=== PATIENT | female | born 1980 | race Caucasian/White ===

== ENCOUNTER 2020-05-31 06:50 | Outpatient (NON) | payer OTHER, SELFPAY ==
[2020-05-31 23:54] LABS: SARS-CoV-2 RNA PCR Negative
== END 2020-05-31 06:51 ==
PROVIDERS: Visit Provider Physician Assistant
DX: Z20.828 Contact with and (suspected) exposure to other viral communicable diseases (principal); J02.9 Acute pharyngitis, unspecified; R05 Cough; R50.9 Fever, unspecified
CPT/HCPCS: 87635; C9803; U0003

== ENCOUNTER → 2020-10-03 10:31 | Outpatient (CLI) | payer SELFPAY ==
--- NOTE | ~2020-10-03 | CT_ITS ---
EXAMINATION: CT abdomen pelvis w con DATE: 10/03/2020 10:55 INDICATION: Right lower quadrant abdominal pain. Diarrhea. TECHNIQUE: Computed tomography (CT) of the abdomen and pelvis was performed with 100 mL Omnipaque 350 intravenous contrast. Automated exposure control and iterative reconstruction technique were employe d. The dose-length product was 858.91 mGy-cm. COMPARISON: CT abdomen and pelvis 11/01/2017 FINDINGS: The visualized portions of the lung bases demonstrate mild atelectasis. No pleural effusion . The heart size is normal. No pericardial effusion. The liver and spleen are normal. There are ac es of cholecystectomy. The pancreas, adrenal glands, and left kidney are normal. There is an [address] in right kidney. There is an intrauterine device in expected position. There are no dilated loops of bowel. The appendix is not visualized. There are no pathologically enlarged lymph nodes. There is no free intraperitoneal fluid. There is moderate thoracic spondylosis and mild lumbar spondylosis. IMPRESSION: 1. No etiology for the patient's symptoms. Reviewed, dictated and finalized at location B. MOBILE LOCATOR
== END ==
PROVIDERS: PCP Family Medicine; Visit Provider Family Medicine
DX: R10.9 Unspecified abdominal pain (principal)
CPT/HCPCS: 74177; Q9967

== ENCOUNTER 2021-03-01 17:42 | Emergency (ER) | payer SELFPAY ==
--- NOTE | ~2021-03-01 | XR_ITS ---
EXAMINATION: XR foot RT min 3V DATE: 03/01/2021 17:53 INDICATION: Right foot pain and swelling. TECHNIQUE: 4 views of right foot were obtained. COMPARISON: Right foot radiographs 12/11/16 FINDINGS: Bone alignment is normal. No fracture. Joint spaces are well maintained. IMPRESSION: 1. No fracture. Reviewed, dictated and finalized at location A. IMPRESSION: 1. No fracture.
--- NOTE | ~2021-03-01 | XR_ITS ---
EXAMINATION: XR ankle RT min 3V DATE: 03/01/2021 17:53 INDICATION: Right ankle pain and swelling. TECHNIQUE: 4 views of right ankle were obtained. COMPARISON: Right ankle radiographs 12/11/2016 FINDINGS: Bone alignment is normal. No fracture. Joint spaces are well maintained. There is ankle sof t tissue swelling. IMPRESSION: 1. No fracture. Reviewed, dictated and finalized at location A. IMPRESSION: 1. No fracture.
[2021-03-01 17:56] VITALS: BP 141/82; PULSE 80; RESP 16; TEMP 36.4; O2SAT 100
--- NOTE | 2021-03-02 07:57 | ED.LOWEXIN ---
HPI - Extremity Injury (Lower) General Chief Complaint: Extremity Injury, Lower Stated Complaint: right foot injury Time Seen by Provider: 03/01/21 17:50 Source: patient and RN notes reviewed Mode of arrival: ambulatory Limitations: no limitations History of Present Illness HPI Narrative: Patient presents today complaining of right foot and ankle injury 2 days ago. States she twisted the foot and ankle while walking down some stairs into her basement. She has been ambulatory with increased pain since the injury. Reports significant swelling to the area. She does report some numbness and tingling to the fifth toe. She has been applying ice and taking ibuprofen without much relief. Reports the pain is throbbing. Pain increases with weightbearing and movement. Currently rates her pain 6/10. MD complaint: ankle injury and foot injury Related Data Allergies Allergy/AdvReac Type Severity Reaction Status Date / Time propoxyphene Allergy Intermediate SOB & Verified 03/01/21 17:44 TIGHTNESS IN THROAT doxycycline Allergy Mild Unknown Verified 03/01/21 17:44 strawberry Allergy Unknown Unknown Verified 03/01/21 17:44 tetracycline Allergy Unknown Unknown Verified 03/01/21 17:44 Review of Systems Review of Systems: Narrative: CONSTITUTIONAL: Denies body aches, fever, chills, or sweats. EYES: Denies visual changes, redness, or discharge. ENT: Denies rhinorrhea, congestion, sore throat, or otalgia. CARDIOVASCULAR: Denies chest pain, palpitations, or edema. RESPIRATORY: Denies cough or dyspnea. GASTROINTESTINAL: Denies abdominal pain, nausea, vomiting, or diarrhea. GENITOURINARY: Denies dysuria or hematuria. SKIN: Denies rash, itching, or wounds. MUSCULOSKELETAL: Denies back pain, or myalgia.+ Right foot and ankle injury NEUROLOGIC: Denies headache, or weakness.+ Numbness and tingling to the right fifth toe PSYCH: Denies depression or anxiety. [facility] Past Medical History Medical History (Updated 03/02/21 @ 07:59 by Latia Zepeda, SANDING SUPERVISOR, ) History of panic attacks Surgical History Surgical History History of appendectomy Hx of cholecystectomy Family History Family History Father Family history of thyroid disease Hypertension Family history of elevated blood lipids Family history of heart disease in male family member before age 55 Family history of alcoholism Family history of cardiovascular disease Family history of arthritis Sibling Family history of thyroid disease Family history of ulcerative colitis Depression Family history of anemia Family history of colitis Mother Family history of gastrointestinal disorder Carcinoma of colon Family history of malignant neoplasm of breast in first degree relative Family history of mental disorder Family history of anemia Family history of arthritis Grandparent Family history of osteoporosis Family history of Alzheimer's disease Family history of hearing loss Other Cerebrovascular accident Family history of allergic disorder Family history of glaucoma Family history of malignant neoplasm of breast Social History Social History Smoking status: Current some day smoker Alcohol intake: current Comments At time of signature, I have reviewed and agree with nursing past medical, surgical, social and family history unless otherwise noted. Please see nursing chart for further information. There is no relevant family history pertinent to the presenting complaint Exam Narrative: Exam Narrative: GENERAL: Well-appearing, well-nourished, and in no acute distress. HEAD: Normocephalic, atraumatic. EYES: EOMI. No redness or drainage. Conjunctivae normal. ENT: Mucous membranes pink and moist. NECK: Normal AROM. CHEST: No respiratory distress. EXTREMITIES: Right foot and ankle: Mo
== END 2021-03-01 18:11 | disposition home or self-care (01) ==
PROVIDERS: Emergency Provider Nurse Practitioner; PCP Family Medicine
DX: S93.401A Sprain of unspecified ligament of right ankle, initial encounter (principal); X50.9XXA Other and unspecified overexertion or strenuous movements or postures, initial encounter; F41.0 Panic disorder [episodic paroxysmal anxiety]
CPT/HCPCS: 73610; 73630; 99213; G0463

== ENCOUNTER 2021-10-14 13:50 | Outpatient (CLI) | payer SELFPAY ==
--- NOTE | ~2021-10-14 | MMUS_ITS ---
EXAMINATION: MM diagnostic merlene BI w connor, US breast LT limited HISTORY: Pain of the outer left breast TECHNIQUE: Craniocaudal, mediolateral, and mediolateral oblique 3-D tomosynthesis images of the breas ts were performed and synthetic 2-D images were generated. CAD analysis was submitted and interpreted . High resolution limited left breast ultrasound was performed. COMPARISON: 05/09/2015, 03/06/2014, 02/22/2013 BREAST PARENCHYMAL COMPOSITION: There are scattered areas of fibroglandular density. FINDINGS: MAMMOGRAPHIC FINDINGS: There is no evidence of suspicious mass, calcification, or architectural distortion in either breast to suggest malignancy. There has been no suspicious interval change. No mammographic correlate is identified for the patient's reported left breast pain. ULTRASOUND: There is no evidence of focal abnormal solid or cystic mass in the vicinity of the patient's reported left breast pain. IMPRESSION: 1. No specific mammographic or sonographic correlate is identified for the patient's reported left br east pain. Further evaluation at this time should be based on clinical assessment. Continued follow-u p physical examination is recommended. 2. Recommend routine screening mammography in one year. BI-RADS Category 1: Negative Reviewed, dictated and finalized at location A. AND SHOVEL MAN IMPRESSION: 1. No specific mammographic or sonographic correlate is identified for the dale ent's reported left breast pain. Further evaluation at this time should be base d on clinical assessment. Continued follow-up physical examination is recommend ed. 2. Recommend routine screening mammography in one year. BI-RADS Category 1: Negative
== END 2021-10-14 13:51 | disposition home or self-care (01) ==
PROVIDERS: PCP Family Medicine; Visit Provider Advanced Practice Midwife
DX: N64.4 Mastodynia (principal)
CPT/HCPCS: 76642; 77062; 77066; G0279

== ENCOUNTER 2022-01-25 22:05 | Emergency (ER) | payer OTHER, SELFPAY ==
--- NOTE | ~2022-01-25 | CT_ITS ---
EXAMINATION: CT abdomen pelvis w con INDICATION: Epigastric pain and vomiting TECHNIQUE: Computed tomographic images of the abdomen and pelvis were obtained after the administrati on of 100 cc of Omnipaque 350 intravenous contrast. The dose-length product (DLP) was 715.18 mGy-cm. Automated exposure control and iterative reconstruction technique were employed. COMPARISON: 10/03/2020 FINDINGS: Minimal dependent atelectasis is present in the lung bases. The heart size is normal. The g allbladder is surgically absent. There is mild enlargement of the common bile duct and central intrah epatic ducts which is likely due to post cholecystectomy state. The liver, spleen, pancreas, and adre nal glands are normal. There is a 1.6 cm cyst of the right kidney. Mild bilateral hydroureter is note d, likely due to bladder distention. No pathologically enlarged abdominal or pelvic lymph nodes are i dentified. There is no free intraperitoneal gas or evidence of bowel obstruction. An IUD is in expect ed position. There is a small fat-containing umbilical hernia. Mild lower thoracic spondylosis is not ed. IMPRESSION: 1. No CT correlate for the patient's symptoms. Reviewed, dictated and finalized at location A.
[2022-01-25 22:08] VITALS: BP 142/85; PULSE 80; RESP 16; TEMP 36.3; O2SAT 100
[2022-01-25 22:56] LABS: Basophils Percent Auto 0.2 % (0.2-1.2); Eosinophils Absolute Auto 0.1 K/mm3 (0-0.3); Eosinophils Percent Auto 1.7 % (0-4.4); Hematocrit 36.7 % (37.0-47.0); Hemoglobin 12.8 g/dL (12.0-15.0); Immature Granulocyte Absolute 0.03 K/mm3 (0.00-0.031); Immature Granulocyte Percent A 0.4 % (0-0.5); Lymphocytes Absolute Auto 1.94 K/mm3 (0.9-3.2); Lymphocytes Percent Auto 23.1 % (18.3-44.2); Mean Corpuscular HGB Conc 34.9 g/dl (32-36); Mean Corpuscular Hemoglobin 32.3 pg (26-34); Mean Corpuscular Volume 92.7 fl (80-100); Monocytes Absolute Auto 0.3 K/mm3 (0.1-0.6); Monocytes Percent Auto 3.9 % (2.6-8.5); Neutrophils Percent Auto 70.7 % (45.5-73.1); Platelet Count Result 219 k/mm3 (150-375); Red Blood Count 3.96 M/mm3 (4.2-5.4); Red Cell Distribution Width 12.8 % (11.5-14.5); White Blood Count 8.4 K/mm3 (4.5-10.0)
[2022-01-25 23:00] LABS: Add Urine Microscopic? YES; Appearance Urine Cloudy (Clear); Bilirubin Urine Negative (Negative); Color Urine Yellow (Yellow); Glucose Urine UA Negative (Negative); Ketones Urine Trace mg/dL (Negative); Leukocyte Esterase Ur 3+ LEU/UL (Negative); Mucus Urine Rare /lpf; Nitrate Urine Negative (Negative); Protein Urine Negative (Negative); Specific Grav Ur 1.028 (1.001-1.035); Squamous Epithelial Cell Urine Few /hpf (Few); Urobilinogen Urine Negative mg/dL (<2.0)
--- NOTE | 2022-01-25 23:08 | ED.NAVMDI ---
HPI - Nausea/Vomiting/Diarrhea General Chief complaint: Nausea/Vomiting/Diarrhea Stated complaint: nausea, vomiting, abd pain Time Seen by Provider: 01/25/22 22:16 Source: patient Mode of arrival: ambulatory Limitations: no limitations History of Present Illness HPI Narrative: This is a 42 year old female that presents to the ER for nausea and vomiting. Reports she recently had a tooth pulled by an oral surgeon in [place]. Reports she started to have worsening pain today and was started on Clindamycin and given Tylenol with Codeine. She has had epigastric pain since. Also reports nausea and vomiting. Denies fevers, difficulty swallowing or trouble breathing. Related Data Allergies Allergy/AdvReac Type Severity Reaction Status Date / Time propoxyphene Allergy Intermediate SOB & Verified 10/28/21 11:38 TIGHTNESS IN THROAT doxycycline Allergy Mild Unknown Verified 10/28/21 11:38 strawberry Allergy Unknown Unknown Verified 10/28/21 11:38 tetracycline Allergy Unknown Unknown Verified 10/28/21 11:38 Review of Systems Review of Systems: CONSTITUTIONAL: Denies fever ENT: Reports dentalgia GASTROINTESTINAL: Reports abdominal pain, nausea, vomiting All systems reviewed & are unremarkable except as noted in HPI and below PMFSH Past Medical History Medical History History of panic attacks Surgical History Surgical History History of appendectomy Hx of cholecystectomy Family History Family History Father Family history of thyroid disease Hypertension Family history of elevated blood lipids Family history of heart disease in male family member before age 55 Family history of alcoholism Family history of cardiovascular disease Family history of arthritis Sibling Family history of thyroid disease Family history of ulcerative colitis Depression Family history of anemia Family history of colitis Mother Family history of gastrointestinal disorder Carcinoma of colon Family history of malignant neoplasm of breast in first degree relative Family history of mental disorder Family history of anemia Family history of arthritis Grandparent Family history of osteoporosis Family history of Alzheimer's disease Family history of hearing loss Other Cerebrovascular accident Family history of allergic disorder Family history of glaucoma Family history of malignant neoplasm of breast Social History Social History (Updated 10/28/21 @ 11:40 by Page Galeana CMA) Smoking status: Current some day smoker Alcohol intake: current Substance use type: does not use Exam Narrative: GENERAL: Well-appearing, well-nourished, and in no acute distress. HEAD: Normocephalic, atraumatic. EYES: EOMI. ENT: Mucous membranes moist. Oropharynx without tonsillar hypertrophy exudate or other lesions. No trismus. Tooth #20 is absent with mild surrounding redness. No fluctuance to suggest abscess NECK: Supple. No adenopathy or masses. CHEST: Clear to auscultation. No respiratory distress. No wheezes rales or rhonchi HEART: Regular rate and rhythm. No murmur heard. Normal peripheral pulses. ABDOMEN: Soft, nontender, nondistended, normal active bowel sounds. EXTREMITIES: Normal range of motion. No edema. SKIN: Warm, dry, no rash. NEURO: No focal deficits. Alert and oriented x3. PSYCH: Normal mood and affect Course Vital Signs Vital signs: Vital Signs Temperature 97.4 F L 01/25/22 22:08 Pulse Rate 80 01/25/22 22:08 Respiratory Rate 16 01/25/22 22:08 Blood Pressure 142/85 H 01/25/22 22:08 Pulse Oximetry 100 01/25/22 22:08 Temperature 97.4 F L 01/25/22 22:08 Pulse Rate 62 01/26/22 02:07 Respiratory Rate 18 01/26/22 02:07 Blood Pressure 118/87 01/26/22 02:07 Pulse Oximetry 100 01/26/22 02:07 MDM - Nausea/Vomiting/Catrina
--- NOTE | 2022-01-25 23:09 | ECG_ITS ---
Measurements Intervals [place] Rate: 69 P: 47 [place]: 162 QRS: 43 QRSD: 85 T: 11 QT: 400 QTc: 431 Interpretive Statements SINUS RHYTHM BASELINE ARTIFACT NONSPECIFIC ST ABNORMALITY BORDERLINE ECG NO PREVIOUS ECG AVAILABLE FOR COMPARISON Electronically Signed On 01-26-2022 16:16:29 CDT by Lopez Swan M.D.
[2022-01-25 23:10] LABS: Blood Urine Negative (Negative)
[2022-01-25 23:10] LABS: Alanine Aminotransferase 17 U/L (4-35); Albumin Level 4.1 g/dL (3.5-5.1); Alkaline Phosphatase 52 U/L (38-126); Anion Gap 7 mmol/L (8-16); Aspartate Amino Transferase 27 U/L (14-36); Bilirubin,Total 0.8 mg/dL (0.2-1.3); Blood Urea Nitrogen 6 mg/dL (7-17); Calcium 8.2 mg/dL (8.4-10.2); Carbon Dioxide 25 mmol/L (22-30); Chloride 107 mmol/L (98-107); Estimated CRCL calculation 90 ml/min; Estimated Glomerular Filt Rate > 60; Glucose 99 mg/dL (65-110); Lipase 89 U/L (23-300); Potassium 3.8 mmol/L (3.4-5.0); Sodium 139 mmol/L (137-145)
[2022-01-25] MEDS: ONDANSETRON INJ 4 MG/2 ML VIAL IV PUSH (23:14)
[2022-01-25] MEDS: KETOROLAC 30 MG/ML VIAL (*BKC) IV PUSH (23:15)
[2022-01-25] MEDS: PANTOPRAZOLE SODIUM IV 40 MG VIAL IV PUSH (23:16)
[2022-01-25] MEDS: SODIUM CHLORIDE 0.9% IV 1,000 ML 999 ML IV CONT (23:19)
[2022-01-25] MEDS: AMPICILLIN SULB 3 GM/NS 100 ML 3 GM/100 ML VIAL IVPB (23:46)
[2022-01-25 23:59] VITALS: BP 129/88; PULSE 62; RESP 18; O2SAT 100
[2022-01-26 02:07] VITALS: BP 118/87; PULSE 62; RESP 18; O2SAT 100
[2022-01-26 02:41] VITALS: BP 118/72; PULSE 62; RESP 18; O2SAT 100
== END 2022-01-26 02:44 | disposition home or self-care (01) ==
PROVIDERS: Physician Assistant; Emergency Provider Emergency Medicine; PCP Family Medicine
DX: N30.00 Acute cystitis without hematuria (principal); K08.89 Other specified disorders of teeth and supporting structures; R11.2 Nausea with vomiting, unspecified; F17.200 Nicotine dependence, unspecified, uncomplicated; R82.998 Other abnormal findings in urine; Z98.818 Other dental procedure status; T36.8X5A Adverse effect of other systemic antibiotics, initial encounter; R94.31 Abnormal electrocardiogram [ECG] [EKG]
CPT/HCPCS: 36415; 74177; 80053; 81001; 81025; 83690; 85025; 87086; 87088; 93005; 96365; 96367; 96375; 99284; C9113; J0131; J0295; J1885; J2405; J7030; Q9967

== ENCOUNTER → 2022-06-20 12:27 | Outpatient (CLI) | payer OTHER, SELFPAY ==
--- NOTE | ~2022-06-20 | XR_ITS ---
EXAMINATION:XR cervical spine 4-5V DATE: 06/20/2022 12:55 INDICATION: Left arm pain and left hand numbness TECHNIQUE: AP, lateral, lateral swimmers and odontoid views of the cervical spine are provided. COMPARISON: None FINDINGS: There are 2 mm of retrolisthesis of C5 on C6. The odontoid is intact. No fracture is identi fied. The vertebral body heights are normal. There is moderate loss of intervertebral disc space heig ht at C5-6. Small degenerative osteophytes project from the anterior endplates of multiple vertebral bodies. There is moderate facet and uncovertebral joint osteoarthritis in the mid and lower cervical spine. Prevertebral soft tissues are normal. IMPRESSION: 1. Moderate cervical spondylosis without acute findings. Reviewed, dictated and finalized at location B.
--- NOTE | ~2022-06-20 | XR_ITS ---
EXAMINATION: XR chest 2V 06/20/2022 12:55 INDICATION: Dyspnea PROCEDURE: 2 view chest COMPARISON: 06/05/2013 FINDINGS: The lungs are clear. The cardiomediastinal silhouette is within normal limits. There are no pleural effusions. There is no pneumothorax suspected. IMPRESSION: 1: NO ACUTE CARDIOPULMONARY DISEASE. Reviewed, dictated and finalized at location A.
== END ==
PROVIDERS: PCP Family Medicine; Visit Provider Family Medicine
DX: R06.09 Other forms of dyspnea (principal); R07.9 Chest pain, unspecified; F17.200 Nicotine dependence, unspecified, uncomplicated; M50.122 Cervical disc disorder at C5-C6 level with radiculopathy; M47.892 Other spondylosis, cervical region
CPT/HCPCS: 71046; 72050

== ENCOUNTER 2022-09-30 17:18 | Emergency (ER) | payer OTHER, SELFPAY ==
--- NOTE | ~2022-09-30 | CT_ITS ---
EXAMINATION: CT abdomen pelvis w con DATE: 09/30/2022 19:52 INDICATION: right lower groin pain, radiating to back. TECHNIQUE: Computed tomography (CT) of the abdomen and pelvis was performed with 100 mL Omnipaque-350 intravenous contrast. Automated exposure control and iterative reconstruction technique were employe d. The dose-length product was 656.00 mGy-cm. COMPARISON: 01/26/2022. FINDINGS: Lower thorax: Left dependent scar/atelectasis. Liver: Normal. Biliary/Gallbladder: Gallbladder is absent. Mild secondary dilation. Pancreas: No mass or duct dilation. Spleen: Normal. Adrenals:No mass. Kidneys: Simple right upper pole cyst. Bilateral subcentimeter hypodensities, too small to characteri ze but also likely represent cysts. No suspicious mass, obstructing calcification, or hydronephrosis. GI tract: Distal esophageal and gastric wall edema. No small or large bowel dilation. Surgically abse nt appendix. Mesentery/Peritoneum: No ascites, mass, or free air. Retroperitoneum: No mass. Mild atherosclerotic abdominal aortic and/or arterial calcifications. Pelvis: Mild wall thickening of the partially decompressed bladder. Normal uterus. IUD, in good posit ion. Trace free pelvic fluid. 2.3 cm simple right ovarian cyst. Soft Tissues: Small uncomplicated fat-containing umbilical hernia. Bones: No acute osseous finding. IMPRESSION: Esophagitis/gastritis. Possible cystitis, correlate with urinalysis. Otherwise no acute abdominal pel abby process detected. Surgically absent appendix. Reviewed, dictated and finalized at location K. ER MOUTH CUTTER IMPRESSION: Esophagitis/gastritis. Possible cystitis, correlate with urinalysis. Otherwise no acute abdominal pelvic process detected. Surgically absent appendix.
[2022-09-30 17:21] VITALS: BP 130/83; PULSE 92; RESP 20; TEMP 36.4; O2SAT 99
[2022-09-30 17:35] LABS: Basophils Percent Auto 0.3 % (0.2-1.2); Eosinophils Absolute Auto 0.1 K/mm3 (0-0.3); Eosinophils Percent Auto 1.2 % (0-4.4); Hematocrit 41.5 % (37.0-47.0); Hemoglobin 14.4 g/dL (12.0-15.0); Immature Granulocyte Absolute 0.03 K/mm3 (0.00-0.031); Immature Granulocyte Percent A 0.5 % (0-0.5); Lymphocytes Absolute Auto 1.72 K/mm3 (0.9-3.2); Lymphocytes Percent Auto 26.5 % (18.3-44.2); Mean Corpuscular HGB Conc 34.7 g/dl (32-36); Mean Corpuscular Hemoglobin 31.9 pg (26-34); Mean Platelet Volume 10.3 fl (7.4-10.4); Monocytes Absolute Auto 0.3 K/mm3 (0.1-0.6); Monocytes Percent Auto 4.9 % (2.6-8.5); Neutrophils Absolute Auto 4.3 K/mm3 (1.3-6.7); Neutrophils Percent Auto 66.6 % (45.5-73.1); Platelet Count Result 302 k/mm3 (150-375); Red Blood Count 4.51 M/mm3 (4.2-5.4); Red Cell Distribution Width 12.1 % (11.5-14.5); White Blood Count 6.5 K/mm3 (4.5-10.0)
[2022-09-30 17:47] LABS: Alanine Aminotransferase 18 U/L (6-35); Albumin Level 4.8 g/dL (3.5-5.1); Alkaline Phosphatase 60 U/L (38-126); Anion Gap 8 mmol/L (8-16); Aspartate Amino Transferase 28 U/L (14-36); Bilirubin,Total 0.9 mg/dL (0.2-1.3); Blood Urea Nitrogen 10 mg/dL (7-17); Calcium 8.9 mg/dL (8.4-10.2); Carbon Dioxide 27 mmol/L (22-30); Chloride 102 mmol/L (98-107); Estimated CRCL calculation 103 ml/min; Estimated Glomerular Filt Rate > 60; Glucose 92 mg/dL (65-110); Lipase 110 U/L (23-300); Sodium 137 mmol/L (137-145)
[2022-09-30 18:53] VITALS: BP 112/75; PULSE 79; RESP 18; O2SAT 100
[2022-09-30 19:00] LABS: Appearance Urine Slightly Cloudy (Clear); Bilirubin Urine 1+ (Negative); Blood Urine Trace-intact (Negative); Color Urine Yellow (Yellow); Glucose Urine UA Negative (Negative); Ketones Urine Negative (Negative); Leukocyte Esterase Ur Trace LEU/UL (Negative); Nitrate Urine Negative (Negative); Protein Urine Trace mg/dL (Negative); Specific Grav Ur 1.025 (1.001-1.035); Urobilinogen Urine 0.2 mg/dL (<2.0)
[2022-09-30 19:01] VITALS: BP 121/79; O2SAT 99
[2022-09-30 19:05] LABS: Amorphous Sediment Urine Few; Bacteria Urine Trace /hpf; Mucus Urine Heavy /lpf; Squamous Epithelial Cell Urine Many /hpf (Few); WBC Urine 0-3 /hpf
[2022-09-30 19:07] LABS: Add Urine Microscopic? YES
[2022-09-30] MEDS: MORPHINE SULFATE (*CRX) 4 MG/ML INJ IV PUSH (19:59)
[2022-09-30 20:00] VITALS: BP 117/81; PULSE 79; RESP 15; O2SAT 100
[2022-09-30] MEDS: SODIUM CHLORIDE 0.9% IV 1,000 ML 999 ML IV CONT (20:00)
[2022-09-30 20:02] VITALS: BP 117/81; O2SAT 100
--- NOTE | 2022-09-30 20:27 | ED.ABDPAIN ---
HPI - Abdominal Pain General Chief Complaint: Abdominal Pain Stated Complaint: L groin pain Time Seen by Provider: 09/30/22 18:58 Source: patient Mode of arrival: ambulatory Limitations: no limitations History of Present Illness HPI narrative: 42-year-old female presents today with complaints of continued right lower abdominal pain. Patient has a history of ovarian cyst and was scheduled for surgery in August but had difficulties. States that she needed cardiac clearance for anesthesia and has not yet obtain that. Patient states the right lower pain has been there for about a week to 10 days consistently getting worse. Patient has not taken any pain medicine except for ibuprofen of the last few days with little relief. Patient denies any back pain, urinary frequency, dysuria, blood in the urine, nausea, vomiting, diarrhea. Related Data Home Medications Medication Instructions Recorded Confirmed multivitamin 1 tablet PO DAILY 09/01/22 09/01/22 Allergies Allergy/AdvReac Type Severity Reaction Status Date / Time propoxyphene Allergy Intermediate SOB & Verified 09/30/22 18:54 TIGHTNESS IN THROAT doxycycline Allergy Mild Other Verified 09/30/22 18:54 strawberry Allergy Unknown Unknown Verified 09/30/22 18:54 tetracycline Allergy Unknown Unknown Verified 09/30/22 18:54 acetaminophen Allergy Shakiness Verified 09/30/22 18:54 [From Tylenol-Codeine #3] codeine Allergy Shakiness Verified 09/30/22 18:54 [From Tylenol-Codeine #3] Review of Systems Review of Systems: CONSTITUTIONAL: Denies fever, chills, or sweats. EYES: Denies visual changes, redness, or discharge. ENT: Denies rhinorrhea, congestion, sore throat, or otalgia. CARDIOVASCULAR: Denies chest pain, palpitations, or edema. RESPIRATORY: Denies cough or dyspnea. GASTROINTESTINAL: Right lower abdominal pain. Denies nausea, vomiting, or diarrhea. GENITOURINARY: Denies dysuria or hematuria. SKIN: Denies rash or itching. MUSCULOSKELETAL: Denies back pain, joint pain, or myalgia. NEUROLOGIC: Denies headache, numbness, dizziness, or weakness. PSYCHIATRIC: Denies anxiety or depression. [facility] Past Medical History Medical History History of panic attacks Surgical History Surgical History History of appendectomy Hx of cholecystectomy Family History Family History Father Family history of thyroid disease Hypertension Family history of elevated blood lipids Family history of heart disease in male family member before age 55 Family history of alcoholism Family history of cardiovascular disease Family history of arthritis Sibling Family history of thyroid disease Family history of ulcerative colitis Depression Family history of anemia Family history of colitis Mother Family history of gastrointestinal disorder Carcinoma of colon Family history of malignant neoplasm of breast in first degree relative Family history of mental disorder Family history of anemia Family history of arthritis Grandparent Family history of osteoporosis Family history of Alzheimer's disease Family history of hearing loss Other Cerebrovascular accident Family history of allergic disorder Family history of glaucoma Family history of malignant neoplasm of breast Social History Social History Smoking packs per day: 0.5 Smoking cigarettes per day: 10.0 Years smoked: 9 Smoking pack-years: 4.50 Smoking status: Current some day smoker Tobacco type: cigarettes Smoking end date: 10/26/03 Additional smoking assessment comments: CURRENT SOCIAL SMOKER Alcohol intake: current Alcohol use details: 2/MONTH Substance use: never Substance use type: does not use Additional living arrangements comments: SONS [facility]
[2022-09-30 21:31] VITALS: BP 130/80; PULSE 78; RESP 18; O2SAT 98
== END 2022-09-30 21:32 | disposition home or self-care (01) ==
PROVIDERS: Emergency Medicine; Emergency Provider Nurse Practitioner Family; PCP Family Medicine
DX: N83.201 Unspecified ovarian cyst, right side (principal); R10.9 Unspecified abdominal pain; F17.210 Nicotine dependence, cigarettes, uncomplicated
CPT/HCPCS: 36415; 74177; 80053; 81001; 81025; 83690; 85025; 96361; 96374; 99284; J2270; J7030; Q9967

== ENCOUNTER 2022-10-31 10:38 | Outpatient (CLI) | payer OTHER, SELFPAY ==
--- NOTE | ~2022-10-31 | XR_ITS ---
XR lumbar spine 2-3V DATE: 10/31/2022 11:04 INDICATION: Low back pain TECHNIQUE: AP, lateral, coned lateral lumbosacral views COMPARISON: 10/01/2015 MRI lumbar spine FINDINGS: There is mild to moderate degenerative spurring of the lower thoracic spine, moderately sev ere degenerative disc disease at T10-11 and T11-12. Normal alignment of the lumbar spine. No fracture or bone destruction or spondylolisthesis. The lumba r pedicles are intact. There is moderate moderate loss of height at L4-5 interspace. Remaining lumbar and lumbosacral inters paces are well preserved. The sacral iliac joints are intact. Surgical clips, right upper quadrant, consistent with cholecystectomy IUD overlies the central pelvis. IMPRESSION: Mild/moderate loss of interspace height at L4-5 Degenerative changes of the lower thoracic spine Status post cholecystectomy IUD Reviewed, dictated and finalized at location B. ICAL UNIT COORDINATOR
== END 2022-10-31 10:39 ==
LOC: MICIMG 10:42
PROVIDERS: PCP Family Medicine; Visit Provider Physician Assistant
DX: M54.50 Low back pain, unspecified (principal); Z90.49 Acquired absence of other specified parts of digestive tract
CPT/HCPCS: 72100

== ENCOUNTER 2023-01-16 08:49 | Emergency (ER) | payer OTHER, SELFPAY ==
[2023-01-16] VITALS (11 sets, daily range): BP systolic 108–124; BP diastolic 71–85; PULSE 61–90; RESP 12–18; TEMP 36.3; O2SAT 97–100
--- NOTE | ~2023-01-16 | XR_ITS ---
EXAMINATION: XR chest 2V DATE: 01/16/2023 09:36 INDICATION: Shortness of breath TECHNIQUE: PA and lateral views of the chest are obtained. COMPARISON: 06/20/2022 FINDINGS: The lungs are free of acute opacities. No pleural effusion or pneumothorax. The cardiomedia stinal silhouette is normal. There is mild thoracic spondylosis. Surgical clips in the right upper qu adrant are likely from prior cholecystectomy. IMPRESSION: 1. No acute cardiopulmonary abnormality. Reviewed, dictated and finalized at location B.
--- NOTE | ~2023-01-16 | CT_ITS ---
Clinical Indication: Dyspnea CT Scan of the Chest with Contrast: Technique: Contiguous sections were acquired throughout the chest after intravenous administration of 100 cc of Omnipaque 350. Dose reduction technique was used on this scan by utilizing automated expos ure control and iterative reconstruction technique. The dose-length product (DLP) was 345.50 mGy-cm. COMPARISON: 06/05/2013 Findings: There is no evidence of any significant mediastinal, hilar or axillary lymphadenopathy. There is no f illing defect in the pulmonary arterial tree to suggest pulmonary embolus. There is no evidence of ao rtic dissection or aneurysm. There is no evidence of pleural or pericardial effusion. The lungs are clear, aside from minimal left basilar atelectatic change. Images through the upper abdomen reveal no abnormalities. Impression: No evidence of pulmonary embolus, aortic dissection, or aortic aneurysm. No significant pulmonary abnormality. Reviewed, dictated and finalized at [facility]. Impression: No evidence of pulmonary embolus, aortic dissection, or aortic aneurysm. No significant pulmonary abnormality.
--- NOTE | 2023-01-16 09:12 | ECG_ITS ---
Measurements Intervals [place] Rate: 63 P: 53 MN: 156 QRS: 53 QRSD: 82 T: 39 QT: 393 QTc: 405 Interpretive Statements SINUS RHYTHM LOW QRS VOLTAGE IN PRECORDIAL LEADS BASELINE ARTIFACT- I, III, AVL BORDERLINE ECG COMPARED TO ECG 01/25/2022 23:52:16 NO SIGNIFICANT CHANGES Electronically Signed On 01-16-2023 12:37:03 CDT by Frank Love D.O.
[2023-01-16 09:37] LABS: Basophils Percent Auto 0.2 % (0.2-1.2); Eosinophils Absolute Auto 0.1 K/mm3 (0-0.3); Eosinophils Percent Auto 2.6 % (0-4.4); Hematocrit 38.3 % (37.0-47.0); Hemoglobin 13.4 g/dL (12.0-15.0); Immature Granulocyte Absolute 0.01 K/mm3 (0.00-0.031); Immature Granulocyte Percent A 0.2 % (0-0.5); Lymphocytes Absolute Auto 1.74 K/mm3 (0.9-3.2); Lymphocytes Percent Auto 41.1 % (18.3-44.2); Mean Corpuscular Hemoglobin 31.5 pg (26-34); Mean Corpuscular Volume 90.1 fl (80-100); Mean Platelet Volume 10.6 fl (7.4-10.4); Monocytes Absolute Auto 0.2 K/mm3 (0.1-0.6); Monocytes Percent Auto 5.7 % (2.6-8.5); Neutrophils Absolute Auto 2.1 K/mm3 (1.3-6.7); Neutrophils Percent Auto 50.2 % (45.5-73.1); Platelet Count Result 190 k/mm3 (150-375); Red Blood Count 4.25 M/mm3 (4.2-5.4); Red Cell Distribution Width 12.3 % (11.5-14.5); White Blood Count 4.2 K/mm3 (4.5-10.0)
[2023-01-16 09:49] LABS: Alanine Aminotransferase 19 U/L (6-35); Albumin Level 4.4 g/dL (3.5-5.1); Alkaline Phosphatase 58 U/L (38-126); Anion Gap 4 mmol/L (8-16); Aspartate Amino Transferase 25 U/L (14-36); Bilirubin,Total 0.7 mg/dL (0.2-1.3); Blood Urea Nitrogen 7 mg/dL (7-17); Calcium 8.5 mg/dL (8.4-10.2); Carbon Dioxide 28 mmol/L (22-30); Chloride 106 mmol/L (98-107); Estimated CRCL calculation 120 ml/min; Estimated Glomerular Filt Rate > 60; Glucose 95 mg/dL (65-110); Potassium 3.3 mmol/L (3.4-5.0); Sodium 138 mmol/L (137-145)
[2023-01-16] MEDS: SODIUM CHLORIDE 0.9% IV 1,000 ML 999 ML IV CONT ×2 (10:48→13:38)
[2023-01-16 11:08] LABS: Troponin I < 0.012 ng/mL (0.000-0.034)
[2023-01-16 11:12] LABS: Appearance Urine Cloudy (Clear); Bacteria Urine 3+ /hpf; Bilirubin Urine Negative (Negative); Blood Urine Negative (Negative); Color Urine Yellow (Yellow); Glucose Urine UA Negative (Negative); Ketones Urine 1+ mg/dL (Negative); Leukocyte Esterase Ur 2+ LEU/UL (Negative); Nitrate Urine Negative (Negative); Non Pathogenic Casts 0-2; Protein Urine Trace mg/dL (Negative); Specific Grav Ur 1.025 (1.001-1.035); Squamous Epithelial Cell Urine Moderate /hpf (Few); pH Urine 6.5 (5.0-9.0)
[2023-01-16 11:17] LABS: Add Urine Microscopic? YES
[2023-01-16 11:18] LABS: Prothrombin Time 13.2 Seconds (11.1-14.7)
[2023-01-16 11:19] LABS: Partial Thromboplastin Time 27.5 SECONDS (22.3-36.8)
--- NOTE | 2023-01-16 11:53 | ED.WEAKNESS ---
HPI - Weakness General Chief complaint: Weakness Stated complaint: covid + with SOB with exertion Time Seen by Provider: 01/16/23 10:09 Source: RN notes reviewed History of Present Illness HPI Narrative: Patient presents emergency department from home for weakness. Patient states she has been feeling generally weak for the past several days that worsened today she states has been associated with dizziness is worse when she gets up and walks she also notes shortness of breath with talking as well as some tightness across her anterior chest she also notes that she has been having some nausea vomiting and diarrhea. Patient states she was diagnosed with COVID-19 on 01/13 with symptoms initially starting on 01/12. She states that she has had no fevers or chills she denies any abdominal pain or any other symptoms Related Data Home Medications Medication Instructions Recorded Confirmed multivitamin 1 tablet PO DAILY 09/01/22 10/31/22 Allergies Allergy/AdvReac Type Severity Reaction Status Date / Time propoxyphene Allergy Intermediate SOB & Verified 01/16/23 08:51 TIGHTNESS IN THROAT doxycycline Allergy Mild Other Verified 01/16/23 08:51 strawberry Allergy Unknown Unknown Verified 01/16/23 08:51 tetracycline Allergy Unknown Unknown Verified 01/16/23 08:51 acetaminophen Allergy Shakiness Verified 01/16/23 08:51 [From Tylenol-Codeine #3] codeine Allergy Shakiness Verified 01/16/23 08:51 [From Tylenol-Codeine #3] Review of Systems Review of Systems: Gen.: Denies fevers or chills ENT: Denies congestion Respiratory: Denies shortness of breath or cough CV: Denies chest pain or palpitations GI: Denies abdominal pain nausea, emesis or diarrhea denies burning, urgency, frequency or hematuria Musculoskeletal: Denies back pain or muscle pain Neuro: Denies numbness, tingling, weakness or focal weakness Skin: Denies rash Except as documented, all other systems reviewed and negative [facility] Past Medical History Medical History History of panic attacks Surgical History Surgical History History of appendectomy Hx of cholecystectomy Family History Family History Father Family history of thyroid disease Hypertension Family history of elevated blood lipids Family history of heart disease in male family member before age 55 Family history of alcoholism Family history of cardiovascular disease Family history of arthritis Sibling Family history of thyroid disease Family history of ulcerative colitis Depression Family history of anemia Family history of colitis Mother Family history of gastrointestinal disorder Carcinoma of colon Family history of malignant neoplasm of breast in first degree relative Family history of mental disorder Family history of anemia Family history of arthritis Grandparent Family history of osteoporosis Family history of Alzheimer's disease Family history of hearing loss Other Cerebrovascular accident Family history of allergic disorder Family history of glaucoma Family history of malignant neoplasm of breast Social History Social History Smoking packs per day: 0.5 Smoking cigarettes per day: 10.0 Years smoked: 9 Smoking pack-years: 4.50 Smoking status: Current some day smoker Tobacco type: cigarettes Smoking end date: 10/26/03 Additional smoking assessment comments: CURRENT SOCIAL SMOKER Alcohol intake: current Alcohol use details: 2/MONTH Substance use: never Substance use type: does not use Lack of Transportation: No Lack of Food: Never True Current Housing: I Have Housing Concerned About Future Housing: No Difficulty Paying Gas/Electric Bills: No Difficulty Paying for Meds: No Currently Unemployed:
[2023-01-16] MEDS: ONDANSETRON INJ 4 MG/2 ML VIAL IV PUSH (13:38)
[2023-01-16 15:58] LABS: Troponin I < 0.012 ng/mL (0.000-0.034)
== END 2023-01-16 16:16 | disposition home or self-care (01) ==
PROVIDERS: Emergency Provider Emergency Medicine; PCP Family Medicine
DX: U07.1 COVID-19 (principal); F17.210 Nicotine dependence, cigarettes, uncomplicated; R11.2 Nausea with vomiting, unspecified; R53.1 Weakness; R07.89 Other chest pain
CPT/HCPCS: 36415; 71046; 71275; 80053; 81001; 81025; 83735; 84484; 85025; 85610; 85730; 87086; 93005; 96361; 96374; 99284; J2405; J7030; Q9967

== ENCOUNTER 2023-03-03 14:15 | Outpatient (RCR) | payer OTHER, SELFPAY ==
--- NOTE | 2022-12-25 16:39 | PTOPEVAL1 ---
Assessment and note entered by Princess Pacheco, PT, DPT Evaluation Information Assessment Status Evaluation Diagnosis low back pain Onset 6 months Subjective Information Pt states she has a history of a herniated disc like 20 years ago. She states about 6 months ago she feels like she reinjured her back. She states she has been using a cane for about 6 months d/t the pain. X-rays show moderately severe DDD at T10- T12. She states she has radiating pain in her R buttock that travels down to the knee, she states she has muscle spasms in addition to this. Reported Pain Level Pain Score 3: Self Report Assessment PT Clinical Summary Karlee presents to therapy today for her initial evaluation with a 6 month history of low back pain with peripheral symptoms. She currently ambulates with a quad cane; reportedly d/t pain, with a decreased gait speed, and moderate gait deviations. Today she demonstrates decreased functional mobility d/t pain. She demonstrates significant tenderness to palpation of her R piriformis and QL muscles. She reports numbness and tingling down into her R knee. Skilled physical therapy services are indicated to address the deficits noted, to manage pain, and to return to baseline function. Plan of Care Interventions Electrical Stimulation,Gait Training,Hot Pack/Cold Pack,Manual Therapy,Neuro Re-education,Patient/ Caregiver Educati,Therapeutic Activities, Therapeutic Exercise PT Services Indicated Yes Treatment Frequency and 2x/wk for 4 wks Duration These treatments will address the objective and functional deficits as defined above. The patient will be advanced safely and appropriately in order for the patient to progress towards his/her prior level of function. Additional exercises will be introduced and as well as a comprehensive home exercise program upon discharge, if needed, ?to ensure carryover of functional gains achieved in the clinic. This treatment plan has been reviewed and agreement upon by the patient.
--- NOTE | 2022-12-29 09:12 | PCPTNOTE ---
Pt cancelled this morning due to a cyst popping and having to go to the ER.
--- NOTE | 2023-01-08 13:45 | PCPTNOTE ---
Patient did not show up for scheduled appointment this date. Called and left voicemail with a reminder of her next appointment.
--- NOTE | 2023-01-13 10:29 | PCPTNOTE ---
Patient called & cancelled scheduled appointment this date due to being sick.
--- NOTE | 2023-01-15 10:07 | PCPTNOTE ---
Patient called & cancelled scheduled appointment this date due to having the flu.
--- NOTE | 2023-01-20 13:38 | PCPTNOTE ---
Patient did not show up for scheduled appointment this date. Called and left voicemail to remind her of her next apt on 01/22/23.
--- NOTE | 2023-01-22 13:36 | PCPTNOTE ---
Patient called & cancelled scheduled re-evaluation this date due to her kids being sick. She states she will call back to reschedule.
--- NOTE | 2023-02-13 09:57 | PCPTNOTE ---
Patient called & cancelled scheduled appointment this date due to her kids being sick. She has been rescheduled for next week.
--- NOTE | 2023-02-19 16:50 | PTOPPROG ---
Assessment and note entered by Princess Pacheco, PT, DPT Evaluation Information Assessment Status Progress Diagnosis low back pain Onset 6 months Subjective Information Pt ambulates into the clinic today without a use of a cane. Pt states she had been doing her exercises at home. Pt states her back pain has decreased a lot. Pain is more manageable just some anterior hip pain. Pt reports at least 70% return to baseline function. Assessment PT Clinical Summary Amber presents to therapy today for her progress report following 3 visits of skilled therapy to treat her low back pain. Her attendance has been limited by her and her children having covid and then the stomach flu, she only attended 3/8 scheduled appointments. Despite her intermittent attendances she has progressed well. She currently ambulates without a cane and demonstrates good LE strength. She continues to have decreased core and hip stability, as well as decreased lumbar mobility increasing her pain with functional tasks . Continuation of skilled physical therapy services are indicated to address the deficits noted above, to manage pain, and to improve functional mobility base to her baseline. Plan of Care Interventions Electrical Stimulation,Gait Training,Hot Pack/Cold Pack,Manual Therapy,Neuro Re-education,Patient/ Caregiver Educati,Therapeutic Activities, Therapeutic Exercise PT Services Indicated Yes Treatment Frequency and 1x/wk for 4 wks Duration These treatments will address the objective and functional deficits as defined above. The patient will be advanced safely and appropriately in order for the patient to progress towards his/her prior level of function. Additional exercises will be introduced and as well as a comprehensive home exercise program upon discharge, if needed, ?to ensure carryover of functional gains achieved in the clinic. This treatment plan has been reviewed and agreement upon by the patient.
--- NOTE | 2023-02-26 14:35 | PCPTNOTE ---
Patient no show no called. Voicemail was left to attempted reschedule.
--- NOTE | 2023-03-12 10:25 | PCPTNOTE ---
Patient call to cancel due to illness.
--- NOTE | 2023-03-16 13:51 | PCPTNOTE ---
Patient did not show up for scheduled appointment this date.
--- NOTE | 2023-03-16 13:58 | PTOPDC ---
Assessment and note entered by Princess Pacheco, PT, DPT Evaluation Information Assessment Status Discharge - Pt Not Present Diagnosis low back pain Onset 6 months Subjective Information Pt did not show for her appointment today. This is her third no show and she has cancelled a majority of her other appointments. Per our attendance policy she will be discharged at this time. Assessment PT Clinical Summary Pt completed 5 visits of skilled therapy from to 03/16/23. She will be discharged at this time .
== END 2023-03-17 08:24 | disposition home or self-care (01) ==
LOC: ANHGOSHPT 14:15
PROVIDERS: PCP Family Medicine; Visit Provider Family Medicine
DX: M54.50 Low back pain, unspecified (principal)
CPT/HCPCS: 97110; 97112; 97113; 97140; 97161; 97530; 99199

== ENCOUNTER 2023-10-29 13:48 | Outpatient (CLI) | payer MEDICAID, SELFPAY | END 2023-10-29 13:49 | disposition home or self-care (01) | LOC: ANHGOSHLAB 13:50 | PROVIDERS: PCP Family Medicine; Visit Provider Family Medicine | DX: L65.0 Telogen effluvium (principal) | CPT/HCPCS: 36415; 84443 ==

== ENCOUNTER 2023-11-02 11:22 | Outpatient (CLI) | payer MEDICAID, SELFPAY ==
--- NOTE | ~2023-11-02 | XR_ITS ---
Clinical Indication: Bronchitis, Covid 19 PA and lateral views of the chest: Comparison: 01/16/2023 Findings: The lungs are clear, without evidence of focal consolidation or pleural effusion. Cardiome diastinal silhouette is within normal limits. Bones and soft tissues are unremarkable. Impression: Normal chest. Reviewed, dictated and finalized at location . K SAW OPERATOR Impression: Normal chest.
== END 2023-11-02 11:23 | disposition home or self-care (01) ==
PROVIDERS: PCP Family Medicine; Visit Provider Family Medicine
DX: R05.9 Cough, unspecified (principal); R06.09 Other forms of dyspnea; U07.1 COVID-19
CPT/HCPCS: 71046

== ENCOUNTER 2023-11-09 14:28 | Outpatient (CLI) | payer MEDICAID, SELFPAY ==
--- NOTE | 2023-11-10 11:40 | WPDPFTINT ---
PFT Procedure Performed PFT Procedure Performed Flow Vol Loop Spirometry w/o Bronchodil PFT Interpretation The spirometry results indicated normal expiratory flow rates and a normal FEV1 to FVC ratio, which was 74%. There was no post-bronchodilator study performed. Additionally, the flow volume loop did not show any significant findings. Impression: Spirometry within normal range.
== END 2023-11-09 14:29 | disposition home or self-care (01) ==
LOC: ANHPFT 14:29
PROVIDERS: Visit Provider Family Medicine
DX: U07.1 COVID-19 (principal); R05.9 Cough, unspecified; R06.09 Other forms of dyspnea
CPT/HCPCS: 94375

== ENCOUNTER 2024-04-26 12:44 | Outpatient (CLI) | payer MEDICAID, SELFPAY ==
[2024-04-26 19:14] LABS: Alanine Aminotransferase 18 U/L (6-35); Albumin Level 4.5 g/dL (3.5-5.1); Alkaline Phosphatase 59 U/L (38-126); Anion Gap 7 mmol/L (4-12); Aspartate Amino Transferase 30 U/L (14-36); Bilirubin,Total 0.7 mg/dL (0.2-1.3); Blood Urea Nitrogen 8 mg/dL (7-17); CRP 0.7 mg/dL (<1.0); Calcium 8.7 mg/dL (8.4-10.2); Carbon Dioxide 26 mmol/L (22-30); Chloride 107 mmol/L (98-107); Cholesterol 185 mg/dL (0-200); Estimated Glomerular Filt Rate > 60; Glucose 85 mg/dL (65-110); HDL Direct 55 mg/dL; Potassium 3.8 mmol/L (3.4-5.0); Sodium 140 mmol/L (137-145); Triglycerides 50 mg/dL (<150)
[2024-04-26 19:21] LABS: LDL Cholesterol Direct 119 mg/dL
[2024-04-26 19:35] LABS: Basophils Percent Auto 0.5 % (0.2-1.2); Eosinophils Absolute Auto 0.5 K/mm3 (0-0.3); Eosinophils Percent Auto 8.8 % (0-4.4); Hematocrit 41.2 % (37.0-47.0); Hemoglobin 13.7 g/dL (12.0-15.0); Immature Granulocyte Absolute 0.01 K/mm3 (0.00-0.031); Immature Granulocyte Percent A 0.2 % (0-0.5); Lymphocytes Absolute Auto 1.98 K/mm3 (0.9-3.2); Lymphocytes Percent Auto 34.7 % (18.3-44.2); Mean Corpuscular HGB Conc 33.3 g/dl (32-36); Mean Corpuscular Hemoglobin 31.8 pg (26-34); Mean Corpuscular Volume 95.6 fl (80-100); Mean Platelet Volume 11.4 fl (7.4-10.4); Monocytes Absolute Auto 0.3 K/mm3 (0.1-0.6); Monocytes Percent Auto 4.9 % (2.6-8.5); Neutrophils Absolute Auto 2.9 K/mm3 (1.3-6.7); Neutrophils Percent Auto 50.9 % (45.5-73.1); Platelet Count Result 270 k/mm3 (150-375); Red Blood Count 4.31 M/mm3 (4.2-5.4); Red Cell Distribution Width 12.8 % (11.5-14.5); White Blood Count 5.7 K/mm3 (4.5-10.0)
[2024-04-26 20:13] LABS: Erythrocyte Sedimentation Rate 20 mm/hr (0-20)
[2024-04-26 20:55] LABS: NT Pro B Type Natriuretic Pept 21 pg/mL (19.9-100)
== END 2024-04-26 12:45 | disposition home or self-care (01) ==
LOC: ANHGOSHLAB 12:46
PROVIDERS: PCP Family Medicine; Visit Provider Nurse Practitioner Family
DX: R06.02 Shortness of breath (principal); R07.9 Chest pain, unspecified; R60.9 Edema, unspecified
CPT/HCPCS: 36415; 80053; 80061; 82607; 83880; 84443; 85025; 85652; 86140

== ENCOUNTER 2024-05-18 15:27 | Outpatient (CLI) | payer MEDICAID, SELFPAY ==
--- NOTE | 2024-05-18 15:43 | ECHO_ITS ---
Patient Info Name: Amber Begum Age: 44 years : 1980 Gender: Female Ht: 64 in Wt: 180 lbs BSA: 1.95 m2 HR: 87 bpm BP: 115 / 90 mmHg Technical Quality: Good Exam Date: 05/18/2024 3:58 PM Exam Location: Echo Lab Patient Status: Outpatient Admit Date: 05/18/2024 Staff Ordering Physician: Alysia Dotson [employer] Broker: Jani Mayorga RDCS Attending Provider: Alysia Dotson Referring Physician: Mauri TAYLOR; Exam Type: CA echo doppler color flow Study Info Indications R07.9 - Chest pain, unspecified Complete two-dimensional, color flow and Doppler transthoracic echocardiogram is performed. Summary 1. Complete two-dimensional, color flow and Doppler transthoracic echocardiogram is performed. 2. Left ventricular chamber dimension is normal. 3. Left ventricular systolic function is normal, estimated at 60-65%. 4. The left ventricular diastolic function is normal. 5. E/e' 8 is minimally elevated. 6. There is mild mitral valve regurgitation. 7. There is trace tricuspid valve regurgitation. 8. No pulmonary hypertension, estimated pulmonary arterial systolic pressure is 16 mmHg. Left Ventricle E/e' 8 is minimally elevated. Left ventricular chamber dimension is normal. Left ventricular systolic function is normal, estimated at 60-65%. The left ventricular diastolic function is normal. Right Ventricle Right ventricular systolic function is normal and with normal TAPSE 2.2 cm. Right ventricular chamber dimension is normal. Left Atria Left atrial chamber dimension is normal. Right Atria Right atrial chamber dimension is normal. Aortic Valve The aortic valve is trileaflet. There is no aortic valve stenosis. There is no aortic valve regurgitation. Pulmonic Valve There is no pulmonic regurgitation. Mitral Valve There is no mitral valve stenosis. There is mild mitral valve regurgitation. Tricuspid Valve There is trace tricuspid valve regurgitation. No pulmonary hypertension, estimated pulmonary arterial systolic pressure is 16 mmHg. Pericardium/Pleural There is no pericardial effusion. Inferior Vena Cava Normal inferior vena cava with >50% collapse upon inspiration consistent with normal right atrial pressure, 5 mmHg. Aorta The aortic root size at the sinus of Valsalva is normal. Left Ventricular Outflow Tract Name Value Normal LVOT 2D LVOT Diameter 2.0 cm LVOT Doppler LVOT Peak Gradient 5 mmHg LVOT Mean Gradient 3 mmHg LVOT VTI 22 cm LVOT VTI/AV VTI Ratio 1.0 LVOT Stroke Volume 70 ml LVOT CO 5.8 l/min LVOT CI 3.0 l/min/m2 Pulmonic Valve Name Value Normal PV Doppler PV Peak Gradient 3 mmHg Mitral Valve
== END 2024-05-18 15:28 | disposition home or self-care (01) ==
LOC: ANHCARD 15:28
PROVIDERS: PCP Family Medicine; Visit Provider Nurse Practitioner Family
DX: R07.9 Chest pain, unspecified (principal); R06.02 Shortness of breath; R60.9 Edema, unspecified; I34.0 Nonrheumatic mitral (valve) insufficiency
CPT/HCPCS: 93306

== ENCOUNTER 2024-05-20 13:28 | Outpatient (CLI) | payer MEDICAID, SELFPAY ==
--- NOTE | ~2024-05-20 | MM_ITS ---
EXAMINATION: MM screening merlene BI w connor HISTORY: Screening TECHNIQUE: Craniocaudal and mediolateral oblique 3-D tomosynthesis images were obtained and synthetic 2-D images were generated. CAD analysis was submitted and interpreted. COMPARISON: Comparison to multiple prior studies sequentially, with oldest reviewed study dated 05/09. BREAST PARENCHYMAL COMPOSITION: Not dense: There are scattered areas of fibroglandular density. FINDINGS: There is no evidence of suspicious mass, calcification, or architectural distortion to sugg est malignancy in either breast. There has been no suspicious interval change. IMPRESSION: 1. No mammographic evidence of malignancy. 2. Recommend routine screening mammography in one year. BI-RADS Category 1: Negative Reviewed, dictated and finalized at location B.
== END 2024-05-20 13:29 ==
LOC: MICIMG 13:30
PROVIDERS: PCP Family Medicine; Visit Provider Nurse Practitioner
DX: Z12.31 Encounter for screening mammogram for malignant neoplasm of breast (principal)
CPT/HCPCS: 77063; 77067

== ENCOUNTER 2024-06-03 09:28 | Outpatient (CLI) | payer MEDICAID, SELFPAY ==
--- NOTE | ~2024-06-03 | NM_ITS ---
NM stress w perf spect multi Procedure: The patient was stressed using Modified Jericho protocol. Prior to the end of exercise 9.8 mCi Tc 99m IV administered. Rest imaging performed following administration of 31 mCi Tc 99m IV. Im ages were reformatted into short axis, horizontal and vertical long axis sections for visual and angie titative analysis. Indication: Chest pain Comparison: None Findings: Computer assisted qualitative and quantitative analysis of the immediate and delayed images revealed normal left ventricular perfusion without evidence of fixed or reversible perfusion abnorma lity to suggest ischemia or infarction. Normal left ventricular cavity size, wall motion and ejectio n fraction. Left ventricular ejection fraction measures 74 %. Impression: 1: No scintigraphic evidence of resting or stress induced perfusion abnormality. 2: Normal left ventricle ejection fraction measuring 74 %. Reviewed, dictated and finalized at location B. Impression: 1: No scintigraphic evidence of resting or stress induced perfusion abnormality . 2: Normal left ventricle ejection fraction measuring 74 %.
--- NOTE | 2024-06-03 09:46 | EST_ITS ---
Patient Info Name: Amber Begum Age: 44 years : 1980 Gender: Female Ht: 64 in Wt: 187 lbs BSA: 1.99 m2 HR: 68 bpm BP: 109 / 67 mmHg Exam Date: 06/03/2024 10:35 AM Exam Location: Echo Lab Patient Status: Outpatient Admit Date: 06/03/2024 Staff Ordering Physician: Alysia Dotson Attending Provider: Alysia Dotson Exercise Technologist: Isabel Don RDCS Exercise Physician: Frank Love DO Exam Type: CA stress test treadmill w NM Study Info A nuclear stress test was performed. Summary 1. 1. Negative Jericho exercise stress test for ischemic ST changes by ECG criteria. 2. 2. Reduced functional capacity, achieving 7 METs of workload. 3. 3. Appropriate HR response to exercise. 4. 4. Appropriate HR recovery at 1 minute post exercise. 5. 5. Nuclear scan to follow and will be reported separately. Please correlate with it. 6. 6. Patient informed of the above results. Protocol: [place]o Stress ECG Details Stage: REST Duration (min): 1 min : 41 sec Speed (mph): 0.0 Grade (%): 0 HR (bpm): 72 SBP (mmHg): 109 DBP (mmHg): 67 METS: --- Stage: REST Duration (min): 4 min : 37 sec Speed (mph): 0.0 Grade (%): 0 HR (bpm): 81 SBP (mmHg): 109 DBP (mmHg): 67 METS: --- Stage: STAGE 1 Duration (min): 1 min : 0 sec Speed (mph): 1.7 Grade (%): 10 HR (bpm): 122 SBP (mmHg): 109 DBP (mmHg): 67 METS: --- Stage: STAGE 1 Duration (min): 2 min : 0 sec Speed (mph): 1.7 Grade (%): 10 HR (bpm): 129 SBP (mmHg): 109 DBP (mmHg): 67 METS: --- Stage: STAGE 1 Duration (min): 3 min : 0 sec Speed (mph): 1.7 Grade (%): 10 HR (bpm): 129 SBP (mmHg): 153 DBP (mmHg): 71 METS: --- Stage: STAGE 2 Duration (min): 1 min : 0 sec Speed (mph): 2.5 Grade (%): 12 HR (bpm): 136 SBP (mmHg): 153 DBP (mmHg): 71 METS: --- Stage: STAGE 2 Duration (min): 2 min : 0 sec Speed (mph): 2.5 Grade (%): 12 HR (bpm): 153 SBP (mmHg): 171 DBP (mmHg): 80 METS: --- Stage: STAGE 2 Duration (min): 2 min : 42 sec Speed (mph): 2.5 Grade (%): 12 HR (bpm): 147 SBP (mmHg): 171 DBP (mmHg): 80 METS: --- Stage: RECOVERY Duration (min): 0 min : 17 sec Speed (mph): 0.0 Grade (%): 0 HR (bpm): 141 SBP (mmHg): 171 DBP (mmHg): 80 METS: --- Stage: RECOVERY Duration (min): 1 min : 17 sec Speed (mph): 0.0 Grade (%): 0 HR (bpm): 133 SBP (mmHg): 171 DBP (mmHg): 80 METS: --- Stage: RECOVERY Duration (min): 2 min : 17 sec Speed (mph): 0.0 Grade (%): 0 HR (bpm): 93 SBP (mmHg): 171 DBP (mmHg): 80 METS: --- Stage: RECOVERY Duration (min): 3 min : 17 sec Speed (mph): 0.0 Grade (%): 0 HR (bpm): 90 SBP (mmHg): 142 DBP (mmHg): 74 METS: --- Stage: RECOVERY Duration (min): 3 min : 20 sec Speed (mph): 0.0 Grade (%): 0 HR (bpm): 91 SBP (mmHg): 142 DBP (mmHg): 74 METS: ---
== END 2024-06-03 09:29 | disposition home or self-care (01) ==
PROVIDERS: PCP Family Medicine; Visit Provider Nurse Practitioner Family
DX: R06.02 Shortness of breath (principal); R07.9 Chest pain, unspecified; R60.9 Edema, unspecified
CPT/HCPCS: 78452; 93017; A9502

== ENCOUNTER 2025-01-06 15:34 | Outpatient (CLI) | payer OTHER, SELFPAY ==
--- OUTSIDE RECORDS SUMMARY | 2025-01-06 15:37 | XMS_ITS | Clinical Summary ---
Author Organization [facility] Address [address] [place] [id number] Care Team Providers Care Computer Systems Support Specialist Name Role Phone Unavailable Primary Care Provider Unavailabl e Social History Tobacco Use Types Packs/Day Years Used Date Smoking Tobacco: Never Assessed Comments Unknown Sex and Gender Information Value Date Recorded Sex Assigned at Not on file Legal Sex Female 7:17 PM CDT Gender Identity Not on file Sexual Orientation Not on file Plan of Treatment Health Maintenance Due Date Last Done Comments Cervical Cancer Screening Pa p Smear (Age 30 to 64) Every 3 Years 1980 Colorectal Cancer Screening Colonoscopy (10 Years) 1979 Annual Physical 1982 Hepatitis C 1997 DTaP, Tdap and Td Vaccines ( 1 - Tdap) 1998 Hepatitis B Vaccines (1 of 3 - 19+ 3-dose series) 1998 Cervical Cancer Screening Pa p with HPV Testing (Age 30 to 64) Every 5 Years 2009 Cervical Cancer Screening with HPV 2009 Mammogram Screening 2019 COVID-19 Vaccine (2023-2 5 season) 2024 Influenza Adult (#1) 2024 HPV Vaccines Aged Out No longer eligi ble based on patient's age to complete this topic Meningococcal B Vaccine Aged Out No l onger eligible based on patient's age to complete this topic Meningococcal Vaccine Aged Out No edgardo andrew eligible based on patient's age to complete this topic Pneumococcal Vaccine: Pediat rics (0 to 5 Years) and At-Risk Patients (6 to 64 Years) Aged Out No longer eligible b ased on patient's age to complete this topic RSV Immunizations Under 20 Months Aged Out No longer eligible based on patient's age to complete this topic
--- OUTSIDE RECORDS SUMMARY | 2025-01-06 15:38 | XMS_ITS | Data Portability ---
Author Organization [facility] [place] Address [address] [place] [address] Care Team Providers Care Pattern Gater Name Role Phone JOHN AQUINO Primary Care Provider Assessment Encounter Date Assessment Date Assessment LastModified by Organization Details LastModified Time 03/08/2024 03/08/2024 Annual gynecological exam performed. Patient will come back in a year unless there are new symptoms. [email or web address] Not available 03/08/2024 12:53:04 Plan of Treatment Reminders Order Date Submit Date Provider Last Modified By Organization Details Last Modified Time Details Appointments FOLLOW UP 2024 02:15P Dari POLLACK MD Not available Not available Not available Lab test, urine 2024 025 maxi [place], [address], [address], [place], [address], 01/03/2025 13:40:23 urinalysi s, dipstick 2024 025 NANO [place], [address], [address], [place], [address], 01/03/2025 15:43:27 urinalysi s, dipstick 2023 024 be [place], [address], [place], [address], 06/22/2024 10:35:33 urinalysi s, dipstick 2023 024 [email or web address] [place], [address], [address], [place], [address], 03/08/2024 13:50:48 Referral None recorded. Procedures None recorded. Surgeries oophorect dhaval (SURG) [address], [facility] [address] [address], [place], [address], 10/27/2023 20:48:20 robotic assisted hysterect dhaval with salpingec sami (SURG) [address], [facility] [address], [place], [address], 10/27/2023 20:48:20 Imaging US, pelvis [email or web address] [place], [place] [address], [place], [address], 01/05/2025 11:49:47 US, transvagi nal 2024 025 NANO [place], [facility] [place] [address], [place], [address], 01/05/2025 16:45:10 US, pelvis, complete 2024 025 [place], [place], [address], 01/04/2025 20:39:39 Medication Orders None recorded. Patient TargetsNo targets recorded. Patient InstructionsNo instructions recorded. Reason for Referral None Reported. Results Created Date Observation Date Name Description Value Unit Range Abnormal Flag Note LastModifiedBy Organization Detail LastModifiedTime 06/02/20 23 06/02/2023 urina lysis , dipst ick Leukocytes tr Not Available Nicola luna [address], [place], [address], 06/02/2023 15:50:38 06/02/20 23 06/02/2023 urina lysis , dipst ick Nitrite neg Not Available [place] [address], [place], [address], 06/02/2023 15:50:38 06/02/20 23 06/02/2023 urina lysis , dipst ick Urobilinogen neg Not Available [facility] dung [address], [place], [address], 06/02/2023 15:50:38 06/02/20 23 06/02/2023 urina lysis , dipst ick Protein neg Not Available [place] [address], [place], [address], 06/02/2023 15:50:38 06/02/20 23 06/02/2023 urina lysis , dipst ick pH neg Not Available [place] [address], [place], [address], 06/02/2023 15:50:38 06/02/20 23 06/02/2023 urina lysis , dipst ick Specific [place] 1.005 Not Available [facility] [address], [place], [address], 06/02/2023 15:50:38 06/02/20 23 06/02/2023 urina lysis , dipst ick Ketone neg Not Available [place] [address], [place], [address], 06/02/2023 15:50:38 06/02/20 23 06/02/2023 urina lysis , dipst ick Bilirubin neg Not Available [facility] kristan [address], [place], [address], 06/02/2023 15:50:38 06/02/20 23 06/02/2023 urina lysis , dipst ick Glucose neg Not Available [place] [address], [place], [address], 06/02/2023 15:50:38 06/02/20 23 06/02/2023 urina lysis , dipst ick Appearance clear Not Available [facility] jeremy [address], [place], [address], 06/02/2023 15:50:38 06/02/20 23 06/02/2023 urina lysis , dipst ick Color yellow Not Available [place] [address], [place], [address], 06/02/2023 15:50:38 06/02/20 23 06/02/2023 pregn aidee test, urine HCG negati ve Not Available [place] [address], [place], [address], 06/02/2023 15:50:26 03/08/20 24 03/08/2024 CULTU RE: URINE result report SEE RESULT S BELOW Test: Cultu re: Urine Speci men Sourc e: Urine Voide d Speci men Type: Urine Speci men Date: 2023 1:05 PM Resul t Date: 2023 6:08 AM Resul t Statu s: Final resul t Abnor mal: No Resul ting Lab: [facility] [address] [facility] [address] Tel: CULTU RE ----- ----- ----- --- No growt h in 1 day (dete ction level of 10,00 0 colon ies / ml.) Not Available [facility] (Lab) [address] [facility], [place], [address], 03/10/2024 07:12:45 03/08/20 24 03/08/2024 IMAGE GUIDE D PAP AND HPV REGAR DLESS image guided Pap, HPV regardless of Pap result SEE RESULT S BELOW CASE REPOR T: Cytol ogy Gynec ologi agueda Repor t Case: [id number] Autho melanie chiu Provi rylan: Marzena Bone, JEREMY Weir cted: 03/08 1304 Order ing Locat ion: [place] Patho augustine Hornesonja soha: 03/09 0102 First Scree n: Zenobia Vasquez ret, CT Speci men: Lenore lawson Pap - Image d, Cervi x STATE MENT OF ADEQU ACY: Satis facto ry for evalu ation Trans forma tion zone compo nent prese nt Parti ally obscu ring infla mmati on prese nt. ----- ----- ----- ----- ----- ----- ----- ----- ----- ----- ----- ----- ----- ----- ----- ----- ----- ---- FINAL DIAGN OSIS: Negat barry for Intra epith elial Lesio n or Low antoine (NIL) . Shift in ahsan sugge stive of bacte rial vagin osis. Elect sedrick hemphill d by Zenobia Vasquez ret, CT on 2023 at 11:59 AM ----- ----- ----- ----- ----- ----- ----- ----- ----- ----- ----- ----- ----- ----- ----- ----- ----- ---- HPV RESUL TS: HPV mRNA E6/E7 : No HPV mRNA Detec velia NOTE: This high risk HPV mRNA assay detec ts fourt een high- risk HPV types (16, 18, 31, 33, 35, 39, 45, 51, 52, 56, 58, 59, 66, 68) witho ut diffe renti ation . COMME NT: This speci men was revie wed by a Cytot echno logis t and/o r Patho logis t (as indic ated in this repor t) after evalu ation using the Thinp rep Imagi ng Syste m. CLINI AGUEDA INFOR MATIO N: Menst rual Statu s: LMP (if appli cable ): Clini agueda Histo ry/Pr eviou s Pap: Type of Neopl kaylie (if appli cable ): Signi fican t Clini agueda Findi ngs: Other Histo ry: Hormo jayce (if appli cable ): PAP EDUCA DIA L NOTE: The Pap Test is a scree renny test with an inher ent false negat barry rate. Liqui d-bas ed sampl ing may decre ase, but will not elimi xochilt, false negat barry resul ts. A negat barry resul t does not precl ude the prese nce and/o r devel opmen t of disea se, since the prese nce of abnor mal cells in the sampl e depen ds on the locat ion of the lesio n and sampl ing techn ique. Anjel nued regul ar scree renny is the best metho d of cance r preve ntion . If repor velia cytol ogic findi ng do not corre late with physi agueda and/o r histo rical findi ngs, furth er inves tigat ion is recom jennie d, as clini jd singh nted. Not Available [facility] (Lab) [address], [place], [address], 03/12/2024 13:02:17 03/08/2003/08/2024 urina lysis , dipst ick Leukocytes + Not Available [facility] [address], [place], [address], 03/08/2024 13:01:01 03/08/20 24 03/08/2024 urina lysis , dipst ick Blood trace Not Available [place] [address], [place], [address], 03/08/2024 13:01:01 06/22/20 24 06/22/2024 VAGIN ITIS/ VAGIN OSIS, DNA PROBE sly sp. detection, direct probe Negati ve negati ve Not Available [facility] (Lab) [address] [facility], [place], [address], 06/24/2024 09:02:27 06/22/20 24 06/22/2024 VAGIN ITIS/ VAGIN OSIS, DNA PROBE gardnerella vag. detection, direct probe Positi ve negati ve abnormal Not Available [facility] (Lab) [address] [facility], [place], [address], 06/24/2024 09:02:27 06/22/20 24 06/22/2024 VAGIN ITIS/ VAGIN OSIS, DNA PROBE trichomonas vag. detection, direct probe Negati ve negati ve Not Available [facility] (Lab) [address] [facility], [place], [address], 06/24/2024 09:02:27 06/22/20 24 06/22/2024 CULTU RE: URINE result report SEE RESULT S BELOW Test: Cultu re: Urine Speci men Sourc e: Urine Voide d Speci men Type: Urine Speci men Date: 2023 0937 Resul t Date: 2023 0759 Resul t Statu s: Final resul t Abnor mal: No Resul ting Lab: [facility] [address] [facility] [address] Tel: CULTU RE ----- ----- ----- --- Organ ism(s ) consi stent with uroge nital or skin ahsan . Repea t cultu re if sympt oms indic ate. Not Available [facility] (Lab) [address] [facility], [place], [address], 06/24/2024 09:02:28 06/22/20 24 06/22/2024 urina lysis , dipst ick Leukocytes ++ Not Available Nicola luna [address], [place], [address], 06/22/2024 10:34:38 06/22/20 24 06/22/2024 urina lysis , dipst ick Nitrite Positi ve Not Available [place] [address], [place], [address], 06/22/2024 10:34:38 06/22/20 24 06/22/2024 urina lysis , dipst ick Urobilinogen Normal Not Available [facility] [address], [place], [address], 06/22/2024 10:34:38 06/22/20 24 06/22/2024 urina lysis , dipst ick Protein Negati ve Not Available [place] [address], [place], [address], 06/22/2024 10:34:38 06/22/20 24 06/22/2024 urina lysis , dipst ick pH 5 Not Available [place] [address], [place], [address], 06/22/2024 10:34:38 06/22/20 24 06/22/2024 urina lysis , dipst ick Specific [place] 1.025 Not Available [facility] [address], [place], [address], 06/22/2024 10:34:38 06/22/20 24 06/22/2024 urina lysis , dipst ick Ketone Negati ve Not Available [place] [address], [place], [address], 06/22/2024 10:34:38 06/22/20 24 06/22/2024 urina lysis , dipst ick Bilirubin Negati ve Not Available [place] [address], [place], [address], 06/22/2024 10:34:38 06/22/20 24 06/22/2024 urina lysis , dipst ick Glucose Normal Not Available [place] [address], [place], [address], 06/22/2024 10:34:38 06/22/20 24 06/22/2024 urina lysis , dipst ick Color Dark yellow Not Available [place] [address], [place], [address], 06/22/2024 10:34:38 01/04/20 25 01/03/2025 urina lysis , dipst ick Leukocytes - Not Available [facility] [address], [place], [address], 01/03/2025 15:04:16 01/04/20 25 01/03/2025 urina lysis , dipst ick Nitrite - Not Available [place] [address], [place], [address], 01/03/2025 15:04:16 01/04/20 25 01/03/2025 urina lysis , dipst ick Protein - Not Available [place] [address], [place], [address], 01/03/2025 15:04:16 01/04/20 25 01/03/2025 urina lysis , dipst ick pH 6 Not Available [place] [address], [place], [address], 01/03/2025 15:04:16 01/04/20 25 01/03/2025 urina lysis , dipst ick Specific [place] 1.015 Not Available [facility] [address], [place], [address], 01/03/2025 15:04:16 01/04/20 25 01/03/2025 urina lysis , dipst ick Appearance clear Not Available [facility] [address], [place], [address], 01/03/2025 15:04:16 01/04/20 25 01/03/2025 urina lysis , dipst ick Color dark yellow Not Available [place] [address], [place], [address], 01/03/2025 15:04:16 01/04/20 25 01/03/2025 pregn aidee test, urine HCG negati ve Not Available [place] [address], [place], [address], 01/03/2025 13:40:15 06/03/20 23 06/03/2023 US, pelvi s No observ ation record ed. [email or web address] [place] [address], [place], [address], 06/03/2023 18:36:15 06/03/20 23 06/03/2023 US, trans vagin al No observ ation record ed. [email or web address] [place] [address] [address], [place], [address], 06/03/2023 18:36:05 06/03/20 23 06/03/2023 US, pelvi s No observ ation record ed. [email or web address] [address] [facility], [place], [address], 06/03/2023 22:17:06 05/20/20 24 05/20/2024 imagi ng/di agnos tic resul t No observ ation record ed. NANO [place] [facility] [address], [place], [address], 06/28/2024 14:46:03 01/06/20 25 01/05/2025 US, pelvi s No observ ation record ed. [email or web address] [place] [address], [place], [address], 01/05/2025 16:44:59 01/06/20 25 01/05/2025 US, trans vagin al No observ ation record ed. [email or web address] [place] [address], [place], [address], 01/05/2025 16:45:10 01/06/20 25 01/05/2025 US, pelvi s No observ ation record ed. [id number] [address], [place], [address], 01/05/2025 11:35:58 Result Notes None recorded. Problems Name Problem SNOMED Code Status Onset Date Resolution Date Notes Provider Name and Address Organization Details Recorded Time Screenin g for malignan t neoplasm of cervix Completed 201504/15/2021 Screenin g for malignan t neoplasm s of the cervix;R ecorded Elsewher e: No Locat ion: [facility] S ource: EHR Admissions Rn arnaldo: N Practi ce ID: 0001 Atul lable Time: 01:30:00 PM Cindy easley [facility] 1 15:40:09 Abdomina l pain [id number] Completed 201304/15/2021 Abdomina l pain, other specifie d site;Rec orded Elsewher e: No Locat ion: [facility] S ource: EHR Admissions Rn arnaldo: Y Practi ce ID: 0001 Atul lable Time: 03:15:00 PM Cindy easley [facility] 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 1 15:40:31 Insertio n of intraute rine contrace ptive device Completed 201704/15/2021 Encounte r for insertio n of intraute rine contrace ptive device;R ecorded Elsewher e: No Locat ion: Lisseth kristan [facility] S ource: EHR Admissions Rn arnaldo: N Reyna ce ID: 0001 Atul lable Time: 01:00:00 PM [facility] 15:40:44 Urinary tract infectio us disease [id number] Completed 201112/20/2012 Urinary Tract Infectio n;Record ed Elsewher e: No Locat ion: [facility] S ource: EHR Admissions Rn arnaldo: N Jojoti ce ID: 0001 Atul lable Time: 01:45:00 PM Cindy Uriarte [facility] 1 15:40:48 Atypical squamous cells of undeterm ined signific ance on cervical Papanico laou smear [id number] Completed 201112/20/2012 Papanico laou smear of cervix with atypical squamous cells of undeterm ined signific ance (ASC-US) ;Recorde d Elsewher e: No Locat ion: [facility] S ource: EHR Admissions Rn arnaldo: N Jojoti ce ID: 0001 Atul lable Time: 11:15:00 AM Not Available [facility] 0 18:46:16 Speciali zed medical examinat ion Completed 201204/15/2021 Gynecolo gical Examinat ion;Vin rded Elsewher e: No Locat ion: [facility] S ource: EHR Admissions Rn arnaldo: N Practi ce ID: 0001 Atul lable Time: 10:30:00 AM [facility] 15:40:40 Poor growth affectin g manageme nt [id number] Completed 201111/30/2013 Poor growth, affectin g manageme nt of mother, antepart um conditio n or complica tion;Rec orded Elsewher e: No Locat ion: Shahbaz rushing [facility] S ource: EHR Admissions Rn arnaldo: N Jojoti ce ID: 0001 Atul lable Time: 08:30:00 AM Not Available [facility] 0 18:46:16 Infectio n screenin g Completed 201704/15/2021 Encounte r for screenin g for oth infec/pa rastc diseases ;Recorde d Elsewher e: No Locat ion: Madelinejavier kristan [facility] S ource: EHR Admissions Rn arnaldo: N Jojoti ce ID: 0001 Atul lable Time: 10:30:00 AM Cindy Chapito [facility] 1 15:40:17 Abnormal weight gain [id number] Completed 201504/15/2021 Abnormal weight gain;Rec orded Elsewher e: No Locat ion: Madelineadamkamilla rushing [facility] S ource: EHR Admissions Rn arnaldo: N Jojoti ce ID: 0001 Atul lable Time: 01:30:00 PM [facility] 15:39:52 Uterine leiomyom a [id number] Completed 201104/15/2021 Leiomyom a of uterus, unspecif ied;Vin rded Elsewher e: No Locat ion: Shahbaz rushing [facility] S ource: EHR Admissions Rn arnaldo: N Reyna ce ID: 0001 Atul lable Time: 08:15:00 AM Cindy easley [facility] 1 15:40:56 Postpart um care Completed 201012/20/2012 Routine postpart um follow-u p;Record ed Elsewher e: No [facility] Admissions Rn arnaldo: N Jojoti ce ID: 0001 Atul lable Time: 01:30:00 PM Cindy easley [facility] 1 15:39:45 Trichomo nal vulvovag initis [id number] Completed 201804/15/2021 Trichomo nal vulvovag initis;R ecorded Elsewher e: No Locat ion: [facility] S ource: EHR Admissions Rn arnaldo: N Jojoti ce ID: 0001 Atul lable Time: 11:30:00 AM Cindy easley, [facility] 1 15:40:52 Pregnanc y test positive [id number] Completed 201111/30/2013 Pregnanc y examinat ion or test, positive result;R ecorded Elsewher e: No Locat ion: [facility] S ource: EHR Admissions Rn arnaldo: N Jojoti ce ID: 0001 Atul lable Time: 01:30:00 PM Cindy easley, [facility] 1 15:40:20 Dysuria [id number] Completed 201404/15/2021 Dysuria; Recorded Elsewher e: No Locat ion: [facility] S ource: EHR Admissions Rn arnaldo: N Jojoti ce ID: 0001 Atul lable Time: 03:15:00 PM Cindy easley, [facility] 15:40:37 Syphilis test finding [id number] Completed 201704/15/2021 Encntr screen for infectio ns w sexl mode of transmis s;Record ed Elsewher e: No Locat ion: [facility] S ource: EHR Admissions Rn arnaldo: N Jojoti ce ID: 0001 Atul lable Time: 10:30:00 AM Cindy easley [facility] 1 15:40:32 Body mass index 30+ - obesity [id number] Completed 201504/15/2021 Body mass index (BMI) 35.0-35. 9, adult;Re corded Elsewher e: No Locat ion: [facility] S ource: EHR Admissions Rn arnaldo: N Jojoti ce ID: 0001 Atul lable Time: 01:30:00 PM Cindy easley [facility] 1 15:40:06 Routine antenata l care Completed 201111/30/2013 Supervis ion of other normal pregnanc y;Record ed Elsewher e: No Locat ion: [facility] S ource: EHR Admissions Rn arnaldo: N Practi ce ID: 0001 Atul lable Time: 08:45:00 AM Cindy easley [facility] 15:39:47 Pregnanc y test negative [id number] Completed 201704/15/2021 Encounte r for pregnanc y test, result negative ;Recorde d Elsewher e: No Locat ion: [facility] S ource: EHR Admissions Rn arnaldo: N Practi ce ID: 0001 Atul lable Time: 01:00:00 PM Cindy easley [facility] 15:40:21 Adult health examinat ion Completed 201204/15/2021 Routine Medical Exam;Rec orded Elsewher e: No Locat ion: [facility] S ource: EHR Admissions Rn arnaldo: N Practi ce ID: 0001 Atul lable Time: 01:00:00 PM Cindy easley [facility] 15:40:25 Removal of intraute rine device Completed 201704/15/2021 Encounte r for removal of intraute rine contrace ptive device;P ractice ID: 0001 Cindy easley [facility] 15:40:46 Contrace ptive sheath status [id number] Completed 201804/15/2021 Encounte r for routine checking of intraute rine contrace p dev;Prac roberto ID: 0001 Cindy easley, [facility] 15:40:18 Pregnanc y test positive [id number] Completed 201404/15/2021 Positive Pregnanc y Test;Pra ctice ID: 0001 Cindy easley [facility] 15:40:20 Female genital organ symptoms Completed 201404/15/2021 Pelvic Pain;Pra ctice ID: 0001 Cindy easley, [facility] 15:40:11 Family planning surveill ance Completed 201304/15/2021 Contrace ptive surveill ance, unspecif ied;Prac roberto ID: 0001 Cindy Uriarte [facility] 15:40:[address] Concept Completed 201704/15/2021 Encntr for general adult medical exam w/o abnormal findings ;Recorde d Elsewher e: No Locat ion: [facility] S ource: EHR Admissions Rn arnaldo: N Practi ce ID: 0001 Atul lable Time: 10:30:00 AM Cindy easley [facility] 15:40:29 Insertio n of intraute rine contrace ptive device Completed 201212/20/2012 INSERTIO N OF IUD;Vin rded Elsewher e: No Locat ion: [facility] S ource: EHR Admissions Rn arnaldo: N Practi ce ID: 0001 Atul lable Time: 08:30:00 AM Cindy easley [facility] 15:40:44 Female genital organ symptoms Completed 201112/20/2012 Unspecif ied symptom associat ed with female genital organs;R ecorded Elsewher e: No Locat ion: [facility] S ource: EHR Admissions Rn arnaldo: N Practi ce ID: 0001 Atul lable Time: 01:45:00 PM Cindy Uriarte [facility] 15:40:11 Speciali zed medical examinat ion Completed 201112/20/2012 Gynecolo gical Examinat ion;Vin rded Elsewher e: No Locat ion: [facility] S ource: EHR Admissions Rn arnaldo: N Jojoti ce ID: 0001 Atul lable Time: 01:00:00 PM Cindy easley [facility] 15:40:40 Surveill ance of contrace ption Completed 201804/15/2021 Encounte r for surveill ance of contrace ptives, unspecif ied;Vin rded Elsewher e: No Locat ion: [facility] S ource: EHR Admissions Rn arnaldo: N Jojoti ce ID: 0001 Atul lable Time: 11:30:00 AM Cindy Chapito tracee, [facility] 15:40:51 Pregnanc y test negative [id number] Completed 201212/20/2012 Pregnanc y examinat ion or test, negative result;R ecorded Elsewher e: No Locat ion: [facility] S ource: EHR Admissions Rn arnaldo: N Jojoti ce ID: 0001 Atul lable Time: 08:30:00 AM Cindy easley [facility] 15:40:21 Routine antenata l care Completed 201004/15/2021 Supervis ion of other normal pregnanc y;Practi ce ID: 0001 Cindy Chapito easley, [facility] 15:39:47 Delivery normal [id number] Completed 201004/15/2021 Normal delivery ;Practic e ID: 0001 Cindy easley, [facility] 15:40:36 Single live [id number] Completed 201004/15/2021 Mother with single liveborn ;Practic e ID: 0001 Cindy easley [facility] 15:40:07 Verruca vulgaris [id number] Completed 201104/15/2021 Warts Genital; Practice ID: 0001 Cindy Uriarte tracee, [facility] 15:40:43 Amenorrh ea 11917905 Completed 201104/15/2021 AMENORRH EA;Pract ice ID: 0001 Cindy Uriarte null, [facility] 15:39:49 Uterine size for dates discrepa ncy [id number] Completed 201104/15/2021 UTERINE SIZE CUAUHTEMOC-ANTE PAR;Prac roberto ID: 0001 Cindy Uriarte null, [facility] 15:40:35 Mild hypereme sis-not delivere d [id number] Completed 201104/15/2021 Mild hypereme sis gravidar um, antepart um;Pract ice ID: 0001 Cindy Uriarte null, [facility] 15:40:12 Leukopen ia [id number] Completed 201104/15/2021 LEUKOCYT OPENIA NOS;Prac roberto ID: 0001 Cindy Uriarte null, [facility] 15:40:54 Urinary tract infectio us disease [id number] Completed 201104/15/2021 Urinary tract infectio n, site not specifie d;Practi ce ID: 0001 Cindy Uriarte null, [facility] 15:40:48 anatomy study Completed 201104/15/2021 [facility];P ractice ID: 0001 Cindy Uriarte tracee, [facility] 15:40:27 Primigra leonor [id number] Completed 201004/15/2021 Supervis ion of normal first pregnanc y;Practi ce ID: 0001 Cindy easley, [facility] 15:39:43 Excessiv e growth affectin g manageme nt of mother [id number] Completed 201111/30/2013 Excessiv e growth, affectin g manageme nt of mother, antepart um;Recor ded Elsewher e: No Locat ion: [facility] rushing [facility] S ource: EHR Admissions Rn arnaldo: N Practi ce ID: [id number] Atul lable Time: 11:30:00 AM Cindy easley, [facility] 15:40:15 Excessiv e growth affectin g manageme nt of mother [id number] Completed 201104/15/2021 GROWTH LARGE LGA;Prac roberto ID: 0001 Cindy easley, [facility] 15:40:15 Educatio n Completed 201204/15/2021 Counseli ng contrace ptive manageme nt;Pract ice ID: 0001 Cindy easley, [facility] 15:40:39 Postpart um care Completed 201104/15/2021 Routine postpart um follow-u p;Practi ce ID: [id number] Cindy easley, [facility] 15:39:45 Problem Notes None recorded. Procedures Surgical History Date Name Laterality Status Provider Name and Address Organization Details Recorded Time 03/08/20 24 Date of Last Pap Smear completed Bev Leigh [facility] 01/03/2025 12:39:49 10/14/20 21 Date of Last Mammogram completed Desire Seo [facility] 05/29/2022 17:05:27 10/26/19 14 Appendectomy completed Maria M Bain [facility] 08/20/2020 15:19:08 10/26/19 13 cholecystectomy completed [facility] 08/20/2020 15:19:16 10/26/19 09 Laparoscopy completed [facility] 08/20/2020 15:19:41 10/26/19 08 Dilation and Curettage completed [facility] 08/20/2020 15:18:58 10/26/18 97 extraction of wisdom tooth completed [facility] 08/20/2020 15:18:49 Imaging Results Imaging Date Name Status LastModified by Organization Details LastModified Time 06/03/2023 US, pelvis completed irvin Tafoya [address], [place], [address], 06/03/2023 18:36:15 06/03/2023 US, transvaginal completed irvin rushing [address], [place], [address], 06/03/2023 18:36:05 06/03/2023 US, pelvis completed [email or web address] [address], [place], [address], 06/03/2023 22:17:06 05/20/2024 imaging/diagnost ic result completed [facility] [address], [place], [address], 06/28/2024 14:46:03 01/05/2025 US, pelvis completed carolyn Tafoya [address], [place], [address], 01/05/2025 16:44:59 01/05/2025 US, transvaginal completed carolyn rushing [address], [place], [address], 01/05/2025 16:45:10 01/05/2025 US, pelvis active [email or web address] [address], [place], [address], 01/05/2025 11:35:58 Procedure Notes None recorded. Medical Equipment None Reported. Allergies Allergen ID Allergen Name Allergen Category Reaction Reaction Severity Criticality Documentation Date Start Date Code Code System Note Provider Name and Address Organization Details Recorded Time 93408 Flagyl medicatio n Not available Not available Not available 05/20/20212020 6 RxNorm Patie nt repor ts only GI upset from chanelle kwan t. [place], [facility]- [address], [place], [address], [facility] 2 17:39:38 2506 acetamino phen medicatio n Not available Not available Not available 08/20/2020 161 RxNorm Maria M easley, [facility] 0 15:19:58 2507 doxycycli ne Not available Not available Not available Not available 08/20/2020 3640 RxNorm Maria Mjoseph easley, [facility] 0 15:20:16 2508 propoxyph avery medicatio n Not available Not available Not available 08/20/2020 8785 RxNorm Maria M easley, [facility] 0 15:20:29 Medications Name Sig Start Date Stop Date Status Note LastModified by Organization Details LastModified Time amoxicill in 500 mg capsule TAKE 1 CAPSULE BY MOUTH EVERY 8 HOURS 01/03 completed Not Available Not Available Not Available Mirena 21 mcg/24 hr (up to 8 years) 52 mg intrauter ine device 2017 active Not Available Not Available Not Avai lable prednison e 10 mg tablet 12/31 completed Not Available Not Available Not Available clindamyc in HCl 300 mg capsule TAKE 1 CAPSULE BY MOUTH TWICE A DAY WITH MEALS FOR 7 DAYS 01/03 completed Not Available Not Available Not Available benzonata te 200 mg capsule 200 MG ORALLY THREE TIMES A DAY NEEDED FOR COUGH 03/08 completed Not Available Not Available Not Available fluconazo le 200 mg tablet TAKE 1 TABLET BY MOUTH EVERY OTHER DAY X 3 DOSES. 01/03 completed Not Available Not Available Not Available metronida zole 0.75 % (37.5 mg/5 gram) vaginal gel INSERT 1 APPLICAT ORFUL VAGINALL Y EVERY DAY AT BEDTIME FOR 5 DAYS 04/21 completed Not Available Not Available Not Available sertralin e 100 mg tablet TAKE 2 TABLETS BY MOUTH AT BEDTIME active Not Available Not Available No t Available Pyridium 100 mg tablet take 2 tablet (200MG) by oral route 3 times every day after meals 08/31 completed Prescrib ed Elsewher e: No Locat ion: Shahbaz rushing [facility] odify By: maribel Villegasou nter DateTime : 01/08/20 12 10:16:57 AM Not Available Not Available Not Available Pyridium 200 mg tablet take 1 tablet (200MG) by oral route 3 times every day after meals 01/01 completed Prescrib ed Elsewher e: No Locat ion: [facility] rushing [facility] odify By: chucky Lau r DateTime : 11/11/19 14 03:15:00 PM Not Available Not Available Not Available clindamyc in HCl 150 mg capsule TAKE 1 CAPSULE BY MOUTH EVERY 6 HOURS UNTIL FINISHED 05/29 completed Not Available Not Available Not Available metronida zole 500 mg tablet TAKE 1 TABLET BY MOUTH TWICE A DAY FOR 7 DAYS 09/30 completed Not Available Not Available Not Available acetamino phen 300 mg-codein e 30 mg tablet TAKE 1 TABLET BY MOUTH EVERY 6 HOURS NEEDED 05/29 completed Not Available Not Available Not Available ciproflox acin 250 mg tablet TAKE 1 TABLET BY MOUTH EVERY 12 HOURS 04/15 completed Not Available Not Available Not Available triamcino lone acetonide 0.1 % topical cream APPLY TO AFFECTED AREA 4 TIMES A DAY 05/13 completed Not Available Not Available Not Available Zofran 8 mg tablet take 1 tablet (8MG) by oral route every 8 hours 08/31 completed Prescrib ed Elsewher e: No Locat ion: [facility] odify By: maribel Doe nter DateTime : 12/10/19 12 01:30:00 PM Not Available Not Available Not Available alprazola m 0.25 mg tablet TAKE 1 TABLET BY MOUTH THREE TIMES A DAY NEEDED FOR ANXIETY 05/29 completed Not Available Not Available Not Available famotidin e 20 mg tablet TAKE 1 TABLET BY MOUTH EVERY DAY 04/21 completed Not Available Not Available Not Available Valium 2 mg tablet take 1 tablet by oral route 3 times every day 03/01 completed Prescrib ed Elsewher e: Yes Loca tion: [facility] rushing [facility] odify By: amhu Rushing ncounter DateTime : 01/02/20 16 01:30:00 PM Not Available Not Available Not Available amitripty line 10 mg tablet TAKE 1 TABLET BY MOUTH EVERYDAY AT BEDTIME 06/02 completed Not Available Not Available Not Available benzonata te 100 mg capsule TAKE 1 CAPSULE BY MOUTH THREE TIMES A DAY NEEDED FOR COUGH 04/21 completed Not Available Not Available Not Available cephalexi n 500 mg capsule TAKE 1 CAPSULE BY MOUTH TWICE A DAY WITH MEALS FOR 7 DAYS 12/31 completed Not Available Not Available Not Available Cipro 500 mg tablet take 1 tablet (500MG) by oral route every 12 hours 11/30 completed Prescrib ed Elsewher e: No Locat ion: [facility] odify By: laquita Rushing ncounter DateTime : 11/15/19 14 10:09:46 AM Not Available Not Available Not Available prednison e 50 mg tablet TAKE 1 TABLET BY MOUTH EVERY DAY 03/08 completed Not Available Not Available Not Available promethaz ine 25 mg tablet take 1 tablet (25MG) by oral route every day at bedtime 08/31 completed Prescrib ed Elsewher e: No Locat ion: [facility] rushing [facility] odify By: maribel Doe nter DateTime : 12/10/19 12 01:30:00 PM Not Available Not Available Not Available Wellbutri n 75 mg tablet take 1 tablet by oral route 3 times every day 12/10 completed Prescrib ed Elsewher e: Yes Loca tion: [facility] rushing [facility] odify By: ar sergio crowder DateTime : 06/03/20 11 08:17:58 AM Not Available Not Available Not Available Slow Fe 47.5 mg iron tablet,ex tended release 08/31 completed Prescrib ed Elsewher e: Yes Loca tion: [facility] rushing [facility] odify By: maribel encinas DateTime : 12/03/19 12 01:00:00 PM Not Available Not Available Not Available oxybutyni n chloride ER 5 mg tablet,ex tended release 24 hr TAKE 1 TABLET BY MOUTH EVERY DAY 05/29 completed Not Available Not Available Not Available clindamyc in 2 % vaginal cream INSERT 1 APPLICAT ORFUL VAGINALL Y EVERY DAY AT BEDTIME FOR 7 DAYS 01/03 completed Not Available Not Available Not Available Valtrex 500 mg tablet take 1 tablet (500MG) by oral route every day 08/31 completed Prescrib ed Elsewher e: No Locat ion: [facility] rushing [facility] odify By: maribel encinas DateTime : 07/23/20 11 02:30:00 PM Not Available Not Available Not Available ibuprofen 600 mg tablet TAKE ONE TABLET THREE TIMES A DAY BY MOUTH NEEDED FOR PAIN 06/02 completed Not Available Not Available Not Available zolpidem 10 mg tablet TAKE 1 TABLET BY MOUTH EVERY DAY 09/30 completed Not Available Not Available Not Available albuterol sulfate HFA 90 mcg/actua tion aerosol inhaler 1 PUFF INHALED EVERY 4 HOURS NEEDED FOR SHORTNES S OF BREATH OR WHEEZING active Not Available Not Available No t Available Vitamin D2 1,250 mcg (50,000 unit) capsule take 1 capsule (42683SB ITS) by oral route every week 08/31 completed Prescrib ed Elsewher e: No Locat ion: [facility] odify By: maribel encinas DateTime : 05/20/20 12 03:54:52 PM Not Available Not Available Not Available ondansetr on 4 mg disintegr ating tablet TAKE 1 TABLET BY MOUTH EVERY 6 HOURS NEEDED FOR NAUSEA AND VOMITING 04/21 completed Not Available Not Available Not Available Xanax 1 mg tablet take 1 tablet (1MG) by oral route 3 times every day 04/15 completed Prescrib ed Elsewher e: Yes Loca tion: [facility] odify By: ar crowder DateTime : 11/30/19 14 04:00:00 PM Not Available Not Available Not Available diazepam 5 mg tablet TAKE 1 TABLET BY MOUTH EVERY 4 - 6 HOURS NEEDED FOR MUSCLE SPASM active Not Available Not Available No t Available amoxicill in 875 mg-potass ium clavulana te 125 mg tablet TAKE 1 TABLET BY MOUTH EVERY 12 HOURS FOR 1 WEEK 05/29 completed Not Available Not Available Not Available Flexeril 10 mg tablet take 1 tablet (10MG) by oral route 2 times every day 08/31 completed Prescrib ed Elsewher e: No Locat ion: [facility] odify By: maribel Doe ntwil DateTime : 06/24/20 12 11:30:00 AM Not Available Not Available Not Available amoxicill in 500 mg-potass ium clavulana te 125 mg tablet Take 1 tablet every 12 hours by oral route with meals for 7 days. 08/09 completed Not Available Not Available Not Available oxycodone 5 mg tablet TAKE 1 TABLET BY MOUTH EVERY 4 HOURS 12/31 completed Not Available Not Available Not Available nitrofura ntoin monohydra te/macroc rystals 100 mg capsule TAKE 1 CAPSULE BY MOUTH EVERY 12 HOURS FOR 7 DAYS 01/03 completed Not Available Not Available Not Available metronida zole 1 % topical gel active Not Available Not Available Not Available Claritin active Not Available Not Avai lable Not Available multivita min active Not Available Not Available Not Available Zyrtec 10 mg capsule 05/29 completed Not Available Not Available Not Available Vicodin 5 mg-300 mg tablet take 1 tablet by oral route every 4 - 6 hours as needed for pain 03/01 completed Prescrib ed Elsewher e: Yes Loca tion: [facility] odify By: colette Rushing ncountwil DateTime : 01/02/20 16 01:30:00 PM Not Available Not Available Not Available Paxlovid 300 mg (150 mg x 2)-100 mg tablets in a dose pack TAKE 2 TABLETS (NIRMATR ZBIGNIEW) AND TAKE 1 TABLET (RITONAV IR) BY MOUTH TWICE A DAY FOR 5 DAYS 04/21 completed Not Available Not Available Not Available Vitals Date Recorded Body height Body mass index (BMI) Body weight Systolic blood pressure Diastolic blood pressure Provider Name and Address Organization Details Last Updated DateTime 06/04/2023 160.66 cm 32.7 kg/m2 53435.18 g 112 mm[Hg] 78 mm[Hg] Tiana Orozco [facility] 3 11:42:10 Date Recorded Body height Body mass index (BMI) Body weight Systolic blood pressure Diastolic blood pressure Provider Name and Address Organization Details Last Updated DateTime 03/08/2024 160.66 cm 33.7 kg/m2 91769.74 g 117 mm[Hg] 82 mm[Hg] Lisa Cowart [facility] 4 12:55:17 Date Recorded Body height Body mass index (BMI) Body weight Systolic blood pressure Diastolic blood pressure Provider Name and Address Organization Details Last Updated DateTime 01/03/2025 160.66 cm 34.1 kg/m2 41592.92 g 124 mm[Hg] 87 mm[Hg] Bev Winslowney [facility] 5 12:38:04 Social History Question Answer Notes LastModified by Organizat ion Details LastModified Time Tobacco Smoking Status Current Some Day Smoker Pt smokes 5-6 cigarettes a weekend Maria M easley [facility] 08/28/2020 12:55:47 What Is Your Level Of Alcohol Consumption? Occasional Once A Week Information not available 08/28/2020 Are You Blind Or Do You Have Difficulty Seeing? No Information not available 06/13/2022 What Is Your Level Of Caffeine Consumption? Occasional Information not available 06/13/2022 In The 14 Days Before Symptom Onset, Have You Had [facility] That Case Was Ill? No Information not available 04/21/2023 In The 14 Days Before Symptom Onset, Have You Had Close Contact With A Person Who Is Under Investigation For COVID-19 While That Person Was Ill? No Information not available 04/21/2023 Have You Been To An Area Known To Be High Risk For COVID-19? No Information not available 04/21/2023 Are You Deaf Or Do You Have Serious Difficulty Hearing? No Information not available 06/13/2022 What Type Of Diet Are You Following? REGULAR Information not available 06/13/2022 Do You Use Your Seat Belt Or Car Seat Routinely? Yes Information not available 06/13/2022 Do You Have Smoke And Carbon Monoxide Detectors In Your Home? Yes Information not available 06/13/2022 Do You Feel Stressed (tense, Restless, Nervous, Or Anxious, Or Unable To Sleep At Night)? [id number] Information not available 06/13/2022 Do You Use Any Illicit Or Recreational Drugs? No Information not available 06/13/2022 Do You Use Sunscreen Routinely? Yes Information not available 06/13/2022 Sex: Unknown Functional Status Question Answer Note LastModified by Organizat ion Details LastModified Time Do you have difficulty walking or climbing stairs? Yes Information not available 12/31/2022 Are you able to walk? YESASSIST Information not available 12/31/2022 Are you able to care for yourself? Yes Information not available 06/13/2022 Do you have difficulty dressing or bathing? No Information not available 06/13/2022 What is your exercise level? Occasional yoga and walking Information not available 08/28/2020 Mental Status None recorded. Family History Relationship Description Onset Age of this Age Resolved Age Notes LastModified by Organization Details LastModified Time Father Hypertensive disorder jgumber Not available 2019 15:16:19 Father Heart disease jgumber Not available 2019 15:16:35 Paternal Grandfather Heart disease jgumber Not available 2019 15:16:35 Paternal Grandfather Coronary artery bypass graft jgumber Not available 15:17:14 Mother Malignant tumor of colon jgumber Not available 2019 15:16:48 Mother Family history of breast cancer bernice Not available 2019 15:17:02 Medical History Condition Response Anxiety Disorder Y History of STI Other Depression/ depression Y Gynecological History Statement/Question Response Abnormal Pap Y Date of Last Mammogram 10/14/2021 Date of LMP On BCP's at Conception? N Was last menstrual period normal N STIs/STDs N HPV Vaccine N Colposcopy Current Control Method IUD Age at First Child 24 Are cycles usually normal N Date of Last Colonoscopy Sexually Active? N Menses Monthly N Date of DEXA bone scan Age of first menstrual cycle 10 Date of Last Pap Smear 03/08/2024 Sexual Problems? N LMP Unknown Obstetrics History GPAL:G 7 P 4 0 3 4 Type Value Full Term 4 Spontaneous 3 Living 4 Total 7 Past Encounters Encounter ID Performer Location Encounter Start Date Encounter Closed Date Diagnosis/Indication Diagnosis SNOMED-CT Code Diagnosis ICD10 Code Diagnosis Note [id number] Ino Pollack MD [facility] [address] [address] 06/15/2020 11:56:52 07/01/2020 17:44:03 [id number] [address] 08/28/2020 12:00:33 08/28/2020 12:46:20 Pain in pelvis 66463731 R10.2 No pain on exam with the exception of suprapubic tenderness . Also uterus slightly enlarged.T he patient was given precaution s. She will contact clinic if pelvic pain increases in frequency or intensity. Also notify clinic of any new symptoms associated with pelvic pain. She does not appear to have an acute pelvic infection today, but was asked to contact us Immediatel y with nausea, vomiting, fever, chills. STD and vaginitis panel collected. Enlarged uterus [id number] 4 N85.2 U/S scheduled. Urinary tr act infectious disease 77352129 N39.0 Increase water and decrease caffeine. Urine sent for culture. Will start macrobid d/t sp tenderness and urine dip. [id number] Danielle Segovia [facility] [address] [address] 09/06/2020 15:16:50 09/06/2020 16:07:11 Pain in pelvis 12901333 R10.2 [id number] Ino Pollack MD [facility] [address],[place] [address] 05/13/2021 15:57:38 05/13/2021 17:02:27 Pain in pelvis 19442842 R10.2 Abnormal u terine bleeding 0723988463 9100 N93.9 [id number] Faviola Seo [facility] [address],[place] [address] 06/19/2021 12:36:42 06/19/2021 16:49:18 Pain in pelvis 77568731 R10.2 [id number] Ino Pollack MD [facility] [address],[place] [address] 06/20/2021 10:54:23 06/20/2021 14:00:06 Insomnia 698044539 G47.00 Urgent cuauhtemoc cristian to urinate 65313164 R39.15 Pain in pelvis 21738387 R10.2 Cyst of ovary 47915462 N 83.209 this patient is a 41-year-ol d female presents for follow-up on ultrasound that was ordered for pelvic pain. There is a 3 cm hemorrhagi c ovarian cyst. We discussed this finding. We discussed the significan ce. We spent over 30 minutes face-to-fa ce. We discussed her pelvic pain in the ultrasound results. We discussed treatment options. We agreed to observe and repeat in 8 weeks. Patient reports insomnia. She sleeps very little. She was sleeps small amount intermitte ntly through the night. We discussed treatment options. We agreed to treat with Ambien as a trial. Talked about urinary urge. Talked about urge symptoms. She has some mild urinary urge. We agreed to a trial of oxybutynin . We spent over 30 minutes discussing 3 complex topics. [id number] Neva Contreras [facility] [address],[place] [address] 08/02/2021 10:26:13 08/02/2021 13:59:50 Pain in pelvis 74429852 R10.2 [id number] Elizabeth Almaguer [facility] [address],[place] [address] 09/30/2021 14:40:07 10/01/2021 19:08:30 Gynecologic examination 86909414 Z01.419 Z11.51 Suggested Calcium with Vitamin D 1200-1500m g daily. Patient advised to get an annual flu shot in the fall and she could obtain at [facility] or [facility] care clinic. Also to obtain TDap vaccinatio n if you have not had one in the last 10 years. Recommend yearly mammograms . Encouraged monthly self breast exams. Pt is going to check with her mother to see if any genetic link. Offered genetic testing. Pt will let us know. Encourage safe sexual practices, to use condoms and limit partners if not already in a monogamous relationsh ip. Engage in daily exercise of low impact aerobic exercise 45-60 minutes 4-5 times weekly. Avoid tobacco and illicit drugs as well as using moderation with alcohol intake less than 1-2 8 oz beverages daily. This lifestyle behavior pattern will lead to less health conditions and longer life span. If BMI greater than 25 weight watchers or dietary consult advised. All questions have been answered. Patient appears to understand informatio n, but if you have any questions please call or respond to this email. Pain of breast 42478086 N64.4 Diagnostic merlene and u/s ordered. If nl will rtc in 6 weeks. If abnormal imaging will schedule with specialist idalia If nl imaging but pain persists at 6 week f/u will need to see specialist . [id number] [facility] [address] [address] 05/29/2022 16:51:24 05/30/2022 16:23:47 Vaginitis 66602454 N76.0 Suspect BVRx senttestin g sent Time spent in visit is a total of 15 mins with at least 50% of visit consisting of counseling and review of plan of care. Urinary symptoms 5516113 08 R39.9 [id number] [facility] [address] [address] 06/13/2022 10:48:34 06/13/2022 11:36:43 Pain in pelvis 98113838 R10.2 N39.0 Today we agreed to updated US for pelvic pressure/U rinary sx's that continue to come back despite neg urinary cx's and treatment for BV completed. Has an IUD so need IUD check & evaluation for other possible issues such as fibroid/ov elvia cysts/poly ps. Time spent in visit is a total of 26 mins with at least 50% of visit consisting of counseling and review of plan of care. [id number] [facility] [address],[place] [address] 06/16/2022 15:20:30 06/16/2022 17:08:02 Pain in pelvis 26268890 R10.2 [id number] [facility] [address],[place] [address] 06/24/2022 12:17:51 06/24/2022 13:36:42 Pain in pelvis 39043280 R10.2 N39.0 US results reviewed.R ecommended consult for findings and symptoms that are effecting quality of life. Patient is to contact office or go to nearest ED/Urgent care if fever >/= 100.1, pain, excessive bleeding, unusual drainage or swelling in area of concern; or experienci ng worsening sx's or new onset of concerning sx's. Understand ing verbalized . All questions answered to patient satisfacti on. Time spent in visit is a total of 26 mins with at least 50% of visit consisting of counseling and review of plan of care. Vaginitis 21794066 N76.0 Suspect yeast from recent abx initiation .Rx sent [id number] [facility] [address] [address] 07/31/2022 10:47:40 07/31/2022 11:23:22 Cyst of right ovary [id number] 9035735 N83.291 [id number] Ino Pollack MD [facility] [address],[place] [address] 08/09/2022 11:19:20 08/11/2022 15:31:00 Cloudy urine 0054821 R82.90 Pain in pelvis 31799330 R10.2 Cyst of right ovary 1223 117823 5724495 N83.291 this patient is a 42-year-ol d female with a persistent right ovarian cyst and persistent pelvic pain. She also has unwanted fertility. She has a growing 4 cm cyst on her right ovary. Her right ovary has a problem with recurrent cyst. She would like definitive surgical treatment. We agreed to right oophorecto my. We discussed other treatment options such as cystectomy . Patient would like permanent sterilizat ion. We agreed bilateral salpingect dhaval. Talked about the risks benefits of salpingect dhaval. We talked about surgery in detail. Talked about laparoscop ic procedures . We spent over 40 minutes face-to-fa ce. We made a decision to perform surgery. Female sterilization [id number] Z30.2 [id number] Irish Fu , [facility] [address],[place] [address] 12/31/2022 11:14:30 12/31/2022 12:37:41 Gynecologic examination [id number] Z01.419 Suggested Calcium with Vitamin D 1200-1500m g daily. Patient advised to get an annual flu shot in the fall and she could obtain at [facility] or [facility] clinic. Also to obtain TDap vaccinatio n if you have not had one in the last 10 years. Recommend yearly mammograms . Encouraged monthly self breast exams. Encourage safe sexual practices, to use condoms and limit partners if not already in a monogamous relationsh ip. Engage in daily exercise of low impact aerobic exercise 45-60 minutes 4-5 times weekly. Avoid tobacco and illicit drugs as well as using moderation with alcohol intake less than 1-2 8 oz beverages daily. This lifestyle behavior pattern will lead to less health conditions and longer life span. If BMI greater than 25 weight watchers or dietary consult advised. All questions have been answered. Patient appears to understand informatio n, but if you have any questions please call or respond to this email.Pap/ hpv sentSTD Screen declinedGe netic Screen discussedC olon Screen PCPDexa Screen [facility] PCPMammo-o rderedA Mirena IUD prevents for up to 8 years, and also helps with heavy periods for up to 5 years in women who choose an IUD for control. Screening mammography [id number] Z12.31 Pain in pelvis [id number] R10.2 N39.0 Encouraged updated visit with Dr. Pollack to discuss surgery. [id number] Faviola Seo [facility] [address],[place] [address] 01/05/2023 11:00:32 01/05/2023 11:37:46 Cyst of right ovary [id number] N83.291 this patient is a 42-year-ol d female with a persistent right ovarian cyst and persistent pelvic pain. She also has unwanted fertility. She has a growing 4 cm cyst on her right ovary. Her right ovary has a problem with recurrent cyst. She would like definitive surgical treatment. We agreed to right oophorecto my. We discussed other treatment options such as cystectomy . Patient would like permanent sterilizat ion. We agreed bilateral salpingect dhaval. Talked about the risks benefits of salpingect dhaval. We talked about surgery in detail. Talked about laparoscop ic procedures . We spent over 40 minutes face-to-fa ce. We made a decision to perform surgery. [id number] [facility] [address],[place] [address] 04/21/2023 16:29:32 04/22/2023 10:07:15 Vaginitis [id number] N76.0 Suspect BV/yeast.L ikely continues with sweating in tight work out wear in hot weather.Rx sentDeclin ed need std screenCons ider boric acid vaginal suppressiv e therapy if this becomes recurrent issue. Time spent in visit is a total of 20 mins with at least 50% of visit consisting of counseling and review of plan of care. [id number] Marzena Bone JEREMY [facility] [address],[place] [address] 06/02/2023 15:13:55 06/03/2023 17:15:49 Pain in pelvis 29919325 R10.2 This patient is a 43 -year-old female with pelvic pain. We have agreed to complete the evaluation with pelvic ultrasound . The patient will return after the pelvic ultrasound to discuss those findings and to develop a treatment plan. A comprehens barry history and physical exam was performed today. We spent over 25 minutes face-to-fa ce. The patient was given precaution s. She will contact clinic if pelvic pain increases in frequency or intensity. Also notify clinic of any new symptoms associated with pelvic pain. She does not appear to have an acute pelvic infection today, but was asked to contact us Immediatel y with nausea, vomiting, fever, chills. recommende d updated TVUSSTI testing senturine cx sent, possible UTI - rx sentRTC for pelvic u/s, recommend MD consult for further evaluation /managemen t of chronic pelvic pain Urinary symptoms [id number] R39.9 [id number] Faviola Seo [facility] [address] [address] 06/03/2023 15:25:41 06/03/2023 16:58:11 Pain in pelvis 32777652 R10.2 [id number] Ino Pollack MD [facility] [address],[place] [address] 06/04/2023 11:30:12 06/04/2023 12:28:28 Chronic pelvic pain of female [id number] R10.2 this patient is a 43-year-ol d female with chronic pelvic pain. For more than 20 years she has had chronic pelvic pain. She has had pain with intercours e. She has a right-side d pain that is sharp. She has had recurrent ovarian cyst. She is unable to have a sexual relationsh ip due to her pain. She has had surgery for pelvic pain. We spent 40 minutes face-to-fa ce. More than 50% was counseling . We talked about treatment options. Patient like definitive surgical treatment. Made a decision to perform surgery. She would like to proceed with robotic hysterecto my with bilateral salpingect dhaval and right oophorecto my. Cyst of ovary [id number] N 83.209 Dyspareunia 89290195 N94 .10 Gynecologi c examination [id number] Z01.419 Z11.51 [id number] ERIC Silverman [facility] [address],[place] [address] 03/08/2024 12:51:03 03/08/2024 13:52:29 Urinary symptoms [id number] R39.9 Gynecologi c examination [id number] Z01.419 [facility] - Mirena IUD, inserted 03/24/2018 - will 03/24/2026p ap updateddec lined STI screenmamm casey is scheduledc olonoscopy - pt waiting until insurance active to schedulero utine labs UTD/PCPRTC in 1 yr or sooner if needed urine cx sent - will update pt with results when availablep recautions reviewed, encouraged to avoid bladder irritants Suggested Calcium with Vitamin D daily. Patient advised to get an annual flu shot in the fall and she could obtain at [facility] or [facility] care clinic. Also to obtain TDap vaccinatio n if you have not had one in the last 10 years. Recommend yearly mammograms . Encouraged monthly self breast exams. Encourage safe sexual practices, to use condoms and limit partners if not already in a monogamous relationsh ip. Engage in regular exercise. Avoid tobacco and illicit drugs This lifestyle behavior pattern will lead to less health conditions and longer life span. If BMI greater than 25 dietary consult advised. All questions have been answered. Patient appears to understand informatio n, but if you have any questions please call or respond to this email. [id number] Bee Liv [facility] [address],[facility] [place] [address] 06/22/2024 10:04:58 06/22/2024 10:36:04 Urinary symptoms [id number] R39.9 [id number] Marzena BrendalaneERIC [facility] [address],[facility] [place] [address] 01/03/2025 12:29:01 01/03/2025 15:26:32 Pain in pelvis [id number] R10.2 This patient is a 43 -year-old female with pelvic pain. We have agreed to complete the evaluation with pelvic ultrasound . The patient will return after the pelvic ultrasound to discuss those findings and to develop a treatment plan. A comprehens barry history and physical exam was performed today. We spent over 25 minutes face-to-fa ce. The patient was given precaution s. She will contact clinic if pelvic pain increases in frequency or intensity. Also notify clinic of any new symptoms associated with pelvic pain. She does not appear to have an acute pelvic infection today, but was asked to contact us Immediatel y with nausea, vomiting, fever, chills. recommende d updated TVUSSTI testing sent per pt requestUA done, urine cx sentUPT (-)RTC for pelvic u/s, recommend MD consult for further evaluation /managemen t of pelvic pain [id number] Danielle Segovia [facility] [address] [address] 01/05/2025 10:50:33 01/05/2025 11:49:47 Pain in pelvis [id number] R10.2 Health Concerns Section Related Observation LastModified by Organization Detai ls LastModified Time None Recorded Concern Status LastModified by Organization Details LastModified Time None Recorded Advance Directives Directive None Recorded Payers Encounter Date Sequence Insurance Name Policy Number Policy Schumacher Covered Member ID Schumacher Member ID Guarantor Name 06/04/2023 1 [facility] [id number] Amber Luiza Kel [id number] Amber Luiza Kel 03/08/2024 1 *SELF PAY* An carmen Begum 06/22/2024 1 [place] [facility] Amber K Kel [id number] Amber Jarrett Kel 01/03/2025 1 [facility] (MEDICAID HMO) [id number] Amber K Kel [id number] Amber Jarrett Kel 01/05/2025 1 [facility] (MEDICAID HMO) [id number] Amber Borjao [id number] Amber Borjao Notes Date Note Type Note Provider Name and Address Organization Details Recorded Time 06/04/2023 text/html this patient is a 43-year-old female with chronic pelvic pain. For more than 20 years she has had chronic pelvic pain. She has had pain with intercourse. She has a right-sided pain that is sharp. She has had recurrent ovarian cyst. She is unable to have a sexual relationship due to her pain. She has had surgery for pelvic pain. We spent 40 minutes [id number]. More than 50% was counseling. We talked about treatment options. Patient like definitive surgical treatment. Made a decision to perform surgery. She would like to proceed with robotic hysterectomy with bilateral salpingectomy and right oophorectomy. Ino Pollack MD [address], [place], [address], [facility] 06/04/2023 12:26:37 03/08/2024 text/html Annual GYNReport ed bypatient.Menstrual cycle:Normal menses Urinary symptoms:No hematuria; No incontinence;Increa sed urinary frequency Vulva:No genital lesion Vagina:Normal vaginal discharge Breast:No breast pain; No breast lump; No nipple discharge Current Contraception:Satis fied with current contraception; Intrauterine device (iud); mirena IUD, inserted 03/24/2018 Sexual complaints:No sexual complaints; No pain during intercourse; Normal libido Menopausal Symptoms:No menopausal symptoms; Normal vaginal lubrication Psychological symptoms:No depression; No anxiety; No PMDD Preventive measures:Encourage self breast examination; Encourage regular exercise; Encourage no tobacco use; Encourage regular mammograms starting age 39Notes:44yo [id number] pap 12/2022 : nilm, HPV (-)mammogram scheduled next monthmother with BC and colon CA, diagnosed with BC in her 30'scolonoscopy 10 yrs ago current tobacco smokerwas planning hyst for chronic pelvic pain with Dr. Pollack but lost insurance, she is waiting to schedule until new insurance is active has noticed increase urinary frequency for the past few weeksneg dysurianeg n/v/fneg flank pains ERIC Silverman [address], [place], [address], [facility] 03/08/2024 14:31:22 01/03/2025 text/html 44yopresents for right sided pelvic painright sided pelvic pain x 1 month. However has been experiencing episodes of pelvic pain that comes and goes over the past 2-3 yrs.ache/cramp that comes and goesradiates to back at timesMirena IUD for BC - inserted 03/24/2018pain with ICno new partners neg d/c, odors, itchingneg urinary symptomsneg n/v/fneg flu-like symptoms ERIC Silverman [address], [place], [address], [facility] 01/03/2025 15:20:57 OBGyn Episode Ob Episode Information Episode Created Date Number of Fetuses Patient Bloodtype Patient rh Status Prepregnancy Weight lbs Domestic Partner Domestic Partner Phone Father Name Dryland Farmer Status 08/20/20 1 CLOSED Fetus Data First Name Last Name Admitted to NICU Weight (g) Sex Living Outcome Pediatric Complications Fetus ID Race Codes Race Delivery Type , Spontane ous 5650 Manuel Calculation Initial Manuel Date Initial Exam Date Initial Exam Provider Initial Ultrasound Date Last Menstrual Period Date Ultra Sound Weeks Gestation 0 Eighteen To Twenty Week Manuel Update Ultra Sound Date Fundal Height At Umbil Quickening Date Ultra Sound Latest Weeks Gestation Final Manuel Confirmed By Final Manuel Confirmed Date Final Manuel Date Ultra Sound Latest Days Gestation 0 0 Menstrual History Last Menstrual Date Menses Monthly On Bcp Conception Prior Menses Frequency Hcg Plus Date Menarche Onset Age Delivery Information Delivery Date Delivery Type Labor Anesthesia Weeks Gestation Incision Type Labor Labor Length Hrs Delivered By Post Complications Tubal Sterilization Discharge Date Comments 0 Discharge Information Feeding Method Contraceptive Method Maternal HG B and HCT Levels Ob Episode Information Episode Created Date Number of Fetuses Patient Bloodtype Patient rh Status Prepregnancy Weight lbs Domestic Partner Domestic Partner Phone Father Name Dryland Farmer Status 08/20/20 1 CLOSED Fetus Data First Name Last Name Admitted to NICU Weight (g) Sex Living Outcome Pediatric Complications Fetus ID Race Codes Race Delivery Type , Spontane ous [id number] Manuel Calculation Initial Manuel Date Initial Exam Date Initial Exam Provider Initial Ultrasound Date Last Menstrual Period Date Ultra Sound Weeks Gestation 0 Eighteen To Twenty Week Manuel Update Ultra Sound Date Fundal Height At Umbil Quickening Date Ultra Sound Latest Weeks Gestation Final Manuel Confirmed By Final Manuel Confirmed Date Final Manuel Date Ultra Sound Latest Days Gestation 0 0 Menstrual History Last Menstrual Date Menses Monthly On Bcp Conception Prior Menses Frequency Hcg Plus Date Menarche Onset Age Delivery Information Delivery Date Delivery Type Labor Anesthesia Weeks Gestation Incision Type Labor Labor Length Hrs Delivered By Post Complications Tubal Sterilization Discharge Date Comments 8 Discharge Information Feeding Method Contraceptive Method Maternal HG B and HCT Levels Ob Episode Information Episode Created Date Number of Fetuses Patient Bloodtype Patient rh Status Prepregnancy Weight lbs Domestic Partner Domestic Partner Phone Father Name Dryland Farmer Status 08/20/20 1 CLOSED Fetus Data First Name Last Name Admitted to NICU Weight (g) Sex Living Outcome Pediatric Complications Fetus ID Race Codes Race Delivery Type , Spontane ous 5649 Manuel Calculation Initial Manuel Date Initial Exam Date Initial Exam Provider Initial Ultrasound Date Last Menstrual Period Date Ultra Sound Weeks Gestation 0 Eighteen To Twenty Week Manuel Update Ultra Sound Date Fundal Height At Umbil Quickening Date Ultra Sound Latest Weeks Gestation Final Manuel Confirmed By Final Manuel Confirmed Date Final Manuel Date Ultra Sound Latest Days Gestation 0 0 Menstrual History Last Menstrual Date Menses Monthly On Bcp Conception Prior Menses Frequency Hcg Plus Date Menarche Onset Age Delivery Information Delivery Date Delivery Type Labor Anesthesia Weeks Gestation Incision Type Labor Labor Length Hrs Delivered By Post Complications Tubal Sterilization Discharge Date Comments 2 Discharge Information Feeding Method Contraceptive Method Maternal HG B and HCT Levels Ob Episode Information Episode Created Date Number of Fetuses Patient Bloodtype Patient rh Status Prepregnancy Weight lbs Domestic Partner Domestic Partner Phone Father Name Dryland Farmer Status 08/20/20 20 1 CLOSED Fetus Data First Name Last Name Admitted to NICU Weight (g) Sex Living Outcome Pediatric Complications Fetus ID Race Codes Race Delivery Type 3543.46 0704 M Full Term 5652 Vaginal Delivery Manuel Calculation Initial Manuel Date Initial Exam Date Initial Exam Provider Initial Ultrasound Date Last Menstrual Period Date Ultra Sound Weeks Gestation 0 Eighteen To Twenty Week Manuel Update Ultra Sound Date Fundal Height At Umbil Quickening Date Ultra Sound Latest Weeks Gestation Final Manuel Confirmed By Final Manuel Confirmed Date Final Manuel Date Ultra Sound Latest Days Gestation 0 0 Menstrual History Last Menstrual Date Menses Monthly On Bcp Conception Prior Menses Frequency Hcg Plus Date Menarche Onset Age Delivery Information Delivery Date Delivery Type Labor Anesthesia Weeks Gestation Incision Type Labor Labor Length Hrs Delivered By Post Complications Tubal Sterilization Discharge Date Comments 4 39 Chucky Discharge Information Feeding Method Contraceptive Method Maternal HG B and HCT Levels Ob Episode Information Episode Created Date Number of Fetuses Patient Bloodtype Patient rh Status Prepregnancy Weight lbs Domestic Partner Domestic Partner Phone Father Name Dryland Farmer Status 08/20/20 20 1 CLOSED Fetus Data First Name Last Name Admitted to NICU Weight (g) Sex Living Outcome Pediatric Complications Fetus ID Race Codes Race Delivery Type 3652.85 8704 M Full Term 5653 Vaginal Delivery Manuel Calculation Initial Manuel Date Initial Exam Date Initial Exam Provider Initial Ultrasound Date Last Menstrual Period Date Ultra Sound Weeks Gestation 0 Eighteen To Twenty Week Manuel Update Ultra Sound Date Fundal Height At Umbil Quickening Date Ultra Sound Latest Weeks Gestation Final Manuel Confirmed By Final Manuel Confirmed Date Final Manuel Date Ultra Sound Latest Days Gestation 0 0 Menstrual History Last Menstrual Date Menses Monthly On Bcp Conception Prior Menses Frequency Hcg Plus Date Menarche Onset Age Delivery Information Delivery Date Delivery Type Labor Anesthesia Weeks Gestation Incision Type Labor Labor Length Hrs Delivered By Post Complications Tubal Sterilization Discharge Date Comments 9 39 Jan Mcarthur + GBS Discharge Information Feeding Method Contraceptive Method Maternal HG B and HCT Levels Ob Episode Information Episode Created Date Number of Fetuses Patient Bloodtype Patient rh Status Prepregnancy Weight lbs Domestic Partner Domestic Partner Phone Father Name Dryland Farmer Status 08/20/20 20 1 CLOSED Fetus Data First Name Last Name Admitted to NICU Weight (g) Sex Living Outcome Pediatric Complications Fetus ID Race Codes Race Delivery Type 3713.55 7704 M Full Term 5654 Vaginal Delivery Manuel Calculation Initial Manuel Date Initial Exam Date Initial Exam Provider Initial Ultrasound Date Last Menstrual Period Date Ultra Sound Weeks Gestation 0 Eighteen To Twenty Week Manuel Update Ultra Sound Date Fundal Height At Umbil Quickening Date Ultra Sound Latest Weeks Gestation Final Manuel Confirmed By Final Manuel Confirmed Date Final Manuel Date Ultra Sound Latest Days Gestation 0 0 Menstrual History Last Menstrual Date Menses Monthly On Bcp Conception Prior Menses Frequency Hcg Plus Date Menarche Onset Age Delivery Information Delivery Date Delivery Type Labor Anesthesia Weeks Gestation Incision Type Labor Labor Length Hrs Delivered By Post Complications Tubal Sterilization Discharge Date Comments 2 38 Oscar Discharge Information Feeding Method Contraceptive Method Maternal HG B and HCT Levels Ob Episode Information Episode Created Date Number of Fetuses Patient Bloodtype Patient rh Status Prepregnancy Weight lbs Domestic Partner Domestic Partner Phone Father Name Dryland Farmer Status 06/20/20 21 1 CLOSED Fetus Data First Name Last Name Admitted to NICU Weight (g) Sex Living Outcome Pediatric Complications Fetus ID Race Codes Race Delivery Type 3713.55 7704 M Full Term 05250 Vaginal Delivery Manuel Calculation Initial Manuel Date Initial Exam Date Initial Exam Provider Initial Ultrasound Date Last Menstrual Period Date Ultra Sound Weeks Gestation 0 Eighteen To Twenty Week Manuel Update Ultra Sound Date Fundal Height At Umbil Quickening Date Ultra Sound Latest Weeks Gestation Final Manuel Confirmed By Final Manuel Confirmed Date Final Manuel Date Ultra Sound Latest Days Gestation 0 0 Menstrual History Last Menstrual Date Menses Monthly On Bcp Conception Prior Menses Frequency Hcg Plus Date Menarche Onset Age Delivery Information Delivery Date Delivery Type Labor Anesthesia Weeks Gestation Incision Type Labor Labor Length Hrs Delivered By Post Complications Tubal Sterilization Discharge Date Comments 1 39 James GBS+, 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
[2025-01-07 10:49] LABS: FSH 11.8 mIU/mL; LH 6.6 mIU/mL
[2025-01-11 13:08] LABS: Testosterone Total 24 ng/dL (2-45)
== END 2025-01-06 15:35 | disposition home or self-care (01) ==
LOC: ANHGOSHLAB 15:35
PROVIDERS: PCP Family Medicine; Visit Provider Nurse Practitioner Family
DX: R63.5 Abnormal weight gain (principal); R45.86 Emotional lability
CPT/HCPCS: 36415; 82670; 83001; 83002; 84403; 84443

== ENCOUNTER 2025-03-02 09:45 | Outpatient (RCR) | payer OTHER, SELFPAY ==
--- NOTE | 2025-01-09 08:52 | PCPTNOTE ---
Patient called & cancelled scheduled appointment this date due to illness.
--- NOTE | 2025-02-03 15:13 | OPREHPOC ---
Outpatient Therapy Plan of Care This is a Multidisciplinary Plan of Care that may contain components documented by all disciplines (PT, OT, and ST.) PT Problem 1 PT Problem #1 Knowledge Deficit PT Goal 1 Goal / Goal Update Mclean with HEP Target Visit 4 PT Goal 2 Goal / Goal Update Report no pain greater than 2/10 for 2 consecutive weeks Target Visit 6 PT Problem 2 PT Problem #2 Impaired Range of Motion PT Goal 1 Goal / Goal Update 1. Improve L shoulder flexion ROM to 170 degrees actively to improve functional reach 2. improve L shoulder external rotation to 90 degrees to improve self care [id number] mobilization Target Visit 6 PT Problem 3 PT Problem #3 Impaired Strength PT Goal 1 Goal / Goal Update Improve L shoulder flexion strength to 4+/5 pain free for object lifting Target Visit 6
--- NOTE | 2025-02-03 15:14 | PTOPEVAL1 ---
Assessment and note entered by Rosendo Murray, PT Evaluation Information Assessment Status Evaluation ICD-10 Condition Codes (PT) Pain in left shoulder M25.512 Onset August 2024 Subjective Information Reports that she originally had left anterior chest and left shoulder pain which she was screened for possible cardiac issues. Reports that she was cleared of cardiac issues. She has since continued to have shoulder pain with radiation on her left underarm. Reports occasional tingling in left hand but not frequent. Pain is mostly activity based. Lifting has been giving her a lot of trouble. She has been having a lot of trouble sleeping on her left side. Reports that she is frequently taking Ibuprofen for pain. Reported Pain Level Pain Score 2: Self Report Assessment PT Clinical Summary Patient presents with signs and symptoms consistent with shoulder impingement. Patient is having greatest difficulty with overhead activity and is positive for impingement signs. She will benefit form skilled therapy to address capsular mobility and strength to progress to improve posture and shoulder stabilization for improved gross functional use of shoulder for ADL performance. Plan of Care Interventions Electrical Stimulation,Manual Therapy,Neuro Re- education,Therapeutic Activities,Therapeutic Exercise PT Services Indicated Yes Treatment Frequency and 1-2x/week for 6 visits Duration These treatments will address the objective and functional deficits as defined above. The patient will be advanced safely and appropriately in order for the patient to progress towards his/her prior level of function. Additional exercises will be introduced and as well as a comprehensive home exercise program upon discharge, if needed, ?to ensure carryover of functional gains achieved in the clinic. This treatment plan has been reviewed and agreement upon by the patient.
--- NOTE | 2025-02-15 09:54 | PCPTNOTE ---
Patient called & cancelled scheduled appointment this date due to having a family emergency.
--- NOTE | 2025-02-17 10:53 | PCPTNOTE ---
Patient called and and cancelled her appointment this date secondary to illness.
--- NOTE | 2025-02-20 10:44 | PCPTNOTE ---
Patient did not show up for scheduled appointment this date. Attempted to call pt to get rescheduled and to remind of next appointment. Voicemail box was full.
--- NOTE | 2025-03-09 08:58 | PCPTNOTE ---
Patient called to cancel due to having an infection.
--- NOTE | 2025-06-12 09:05 | PTOPDC ---
Assessment and note entered by Rosendo Murray, PT Evaluation Information Assessment Status Discharge - Pt Not Present ICD-10 Condition Codes (PT) Pain in left shoulder M25.512 Onset August 2024 Subjective Information Reports that she originally had left anterior chest and left shoulder pain which she was screened for possible cardiac issues. Reports that she was cleared of cardiac issues. She has since continued to have shoulder pain with radiation on her left underarm. Reports occasional tingling in left hand but not frequent. Pain is mostly activity based. Lifting has been giving her a lot of trouble. She has been having a lot of trouble sleeping on her left side. Reports that she is frequently taking Ibuprophen for pain. Assessment PT Clinical Summary Patient to be discharged from skilled therapy at this time due to lack of attendance. Patient was last present for therapy on 03/02/25. Please see last treatment note for discharge status. Plan of Care PT Services Indicated Yes
== END 2025-05-04 23:59 | disposition home or self-care (01) ==
LOC: ANHGOSHPT 09:45
PROVIDERS: PCP Family Medicine; Visit Provider Nurse Practitioner Family
DX: M25.512 Pain in left shoulder (principal)
CPT/HCPCS: 97110; 97140; 97161; 97530

== ENCOUNTER 2025-03-19 18:33 | Emergency (ER) | payer OTHER, SELFPAY ==
--- NOTE | ~2025-03-19 | CT_ITS ---
CT facial bones w con Ordering provider: Dixie Holcomb APRN History: . concern for infection from dental procedure . Comparison: September 12, 2018 Technique: Thin slice axial CT of the facial bones was performed with contrast. Coronal and sagittal reformatted images were also obtained. . Automated exposure control and iterative reconstruction te chnique were employed. The dose-length product was 465.98 mGy-cm. 75 mL Omnipaque 350 was given IV. FINDINGS: Artifacts are noted projected over the mandibles and oral cavity. PARANASAL SINUSES: Bilateral ethmoid, maxillary and sphenoid sinusitis. Left nasal septal deviation. Obliteration of the ostiomeatal complexes. BONES: No facial fracture including no nasal bone fracture. ORBITS AND SUPERFICIAL SOFT TISSUES: The optic globes and orbits are normal. The superficial soft tis sues are normal. Left submandibular lymph node is seen measuring 1.8 cm. Left parapharyngeal lymph node is also seen m easuring 1.2 cm. VISUALIZED MASTOIDS: Well aerated. LIMITED VISUALIZED BRAIN PARENCHYMA: Normal. IMPRESSION: No facial fracture. No definite abnormality seen in the area of the upper and lower mandibles. Reviewed, dictated and finalized at location A.
--- OUTSIDE RECORDS SUMMARY | 2025-03-19 18:35 | XMS_ITS | Data Portability ---
Author Organization [facility] [place] Address [address] [place] [address] [address] [place] [address] Care Team Providers Care Diet Consultant Name Role Phone JOHN AQUINO Primary Care Provider Assessment Encounter Date Assessment Date Assessment LastModified by Organization Details LastModified Time 03/08/2024 03/08/2024 Annual gynecological exam performed. Patient will come back in a year unless there are new symptoms. [email or web address] Not available 03/08/2024 12:53:04 Plan of Treatment Reminders Order Date Submit Date Provider Last Modified By Organization Details Last Modified Time Details Appointments SURG Salpingec sami 2024 09:00A Dari POLLACK MD Not available Not available Not available Lab test, urine 2024 025 [email or web address] [place], [address], [address], [place], [address], 01/03/2025 13:40:23 urinalysi s, dipstick 2024 025 NANO [place], [address], [address], [place], [address], 01/03/2025 15:43:27 urinalysi s, dipstick 2023 024 be [place], [address], [address], [place], [address], 06/22/2024 10:35:33 urinalysi s, dipstick 2023 024 [email or web address] [place], [facility] [address], [place], [address], 03/08/2024 13:50:48 Referral None recorded. Procedures None recorded. Surgeries oophorect dhaval (SURG) [address], [facility] [address], [address], 02/27/2025 17:52:45 salpingec sami, laparosco pic (SURG) [address], [facility], [address], 02/28/2025 09:18:02 Imaging US, pelvis [address], [facility] [address], [place], [address], 2025 10:55:25 US, transvagi nal [address] [facility] [address], [place], [address], 2025 10:55:25 US, pelvis, complete [email or web address] [facility] [address], [place], [address], 01/17/2025 15:37:30 Medication Orders None recorded. Patient TargetsNo targets recorded. Patient InstructionsNo instructions recorded. Reason for Referral None Reported. Results Created Date Observation Date Name Description Value Unit Range Abnormal Flag Note LastModifiedBy Organization Detail LastModifiedTime 03/08/20 24 03/08/2024 CULTU RE: URINE result report SEE RESULT S BELOW Test: Cultu re: Urine Speci men Sourc e: Urine Voide d Speci men Type: Urine Speci men Date: 2023 1:05 PM Resul t Date: 2023 6:08 AM Resul t Statu s: Final resul t Abnor mal: No Resul ting Lab: [facility] [address] [facility] [address] Tel: CULTU RE ----- ----- ----- --- No growt h in 1 day (dete ction level of 10,00 0 colon ies / ml.) Not Available [facility] (Lab) [address], [place], [address], 03/10/2024 07:12:45 03/08/20 24 03/08/2024 IMAGE GUIDE D PAP AND HPV REGAR DLESS image guided Pap, HPV regardless of Pap result SEE RESULT S BELOW CASE REPOR T: Cytol ogy Gynec ologi agueda Repor t Case: [id number] Autho melanie Provi rylan: Marzena Bone, JEREMY Colle cted: 03/08 1304 Order ing Locat ion: [place] Path[facility] Recei soha: 03/09 0102 First Scree n: Zenobia Vasquez ret, CT Speci men: Scree renny Pap - Image d, Cervi x STATE MENT OF ADEQU ACY: Satis facto ry for evalu ation Trans forma tion zone compo nent prese nt Parti ally obscu ring infla mmati on prese nt. ----- ----- ----- ----- ----- ----- ----- ----- ----- ----- ----- ----- ----- ----- ----- ----- ----- ---- FINAL DIAGN OSIS: Negat barry for Intra epith elial Lesio duncan or Low antoine (NIL) . Shift in ahsan sugge stive of bacte rial vagin osis. Elect sedrick ramos joby d by Zenobia Vasquez ret, CT on [...] agueda and/o r histo rical findi ngs, fur er inves tigat ion is recom jennie d, as clini jd singh nted. Not Available [facility] (Lab) [address], [place], [address], 03/12/2024 13:02:17 03/08/20 24 03/08/2024 urina lysis , dipst ick Leukocytes + Not Available [facility] [address], [place], [address], 03/08/2024 13:01:01 03/08/20 24 03/08/2024 urina lysis , dipst ick Blood trace Not Available [place] [address], [place], [address], 03/08/2024 13:01:01 06/22/20 24 06/22/2024 VAGIN ITIS/ VAGIN OSIS, DNA PROBE sly sp. detection, direct probe Negati ve negati ve Not Available [facility] (Lab) [address], [place], [address], 06/24/2024 09:02:27 06/22/20 24 06/22/2024 VAGIN ITIS/ VAGIN OSIS, DNA PROBE gardnerella vag. detection, direct probe Positi ve negati ve abnormal Not Available [facility] (Lab) [address], [place], [address], 06/24/2024 09:02:27 06/22/20 24 06/22/2024 VAGIN ITIS/ VAGIN OSIS, DNA PROBE trichomonas vag. detection, direct probe Negati ve negati ve Not Available [facility] (Lab) [address], [place], [address], 06/24/2024 09:02:27 06/22/20 24 06/22/2024 CULTU RE: URINE result report SEE RESULT S BELOW Test: Cultu re: Urine Speci men Sourc e: Urine Voide d Speci men Type: Urine Speci men Date: 2023 0937 Resul t Date: 2023 0759 Resul t Statu s: Final resul t Abnor mal: No Resul jose eg Lab: [facility] [address] [facility] [address] Tel: [phone] CULTU RE ----- ----- ----- --- Organ ism(s ) consi stent with uroge nital or skin ahsan . Repea t cultu re if sympt oms indic ate. Not Available [facility] (Lab) [address], [place], [address], 06/24/2024 09:02:28 06/22/20 24 06/22/2024 urina lysis , dipst ick Leukocytes ++ Not Available Nicola luna [address], [place], [address], 06/22/2024 10:34:38 06/22/20 24 06/22/2024 urina lysis , dipst ick Nitrite Positi ve Not Available [place] [address], [place], [address], 06/22/2024 10:34:38 06/22/20 24 06/22/2024 urina lysis , dipst ick Urobilinogen Normal Not Available Mark razo [address], [place], [address], 06/22/2024 10:34:38 06/22/20 24 06/22/2024 urina lysis , dipst ick Protein Negati ve Not Available [place] [address], [place], [address], 06/22/2024 10:34:38 06/22/20 24 06/22/2024 urina lysis , dipst ick pH 5 Not Available [place] [address], [place], [address], 06/22/2024 10:34:38 06/22/20 24 06/22/2024 urina lysis , dipst ick Specific Kunia 1.025 Not Available [facility] [address], [place], [address], 06/22/2024 10:34:38 06/22/20 24 06/22/2024 urina lysis , dipst ick Ketone Negati ve Not Available [place] [address], [place], [address], 06/22/2024 10:34:38 06/22/20 24 06/22/2024 urina lysis , dipst ick Bilirubin Negati ve Not Available [place] [address], [place], [address], 06/22/2024 10:34:38 06/22/20 24 06/22/2024 urina lysis , dipst ick Glucose Normal Not Available [place] [address], [place], [address], 06/22/2024 10:34:38 06/22/20 24 06/22/2024 urina lysis , dipst ick Color Dark yellow Not Available [place] [address], [place], [address], 06/22/2024 10:34:38 01/04/20 25 01/03/2025 [facility] JORDI bacterial vaginosis (bv), tma Positi ve negati ve abnormal Not Available [facility] (Lab) [address] [place], [address], 01/04/2025 15:19:15 01/04/20 25 01/03/2025 [facility] JORDI sly species, tma Negati ve negati ve Not Available [facility] (Lab) [address] [place], [address], 01/04/2025 15:19:15 01/04/20 25 01/03/2025 [facility], JORDI sly glabrata, tma Negati ve negati ve Not Available [facility] (Lab) [address], [place], [address], 01/04/2025 15:19:15 01/04/20 25 01/03/2025 WOMEN 'S [facility] H SWAB PLUS, JORDI trichomonas vaginalis, tma Negati ve negati ve Not Available [facility] (Lab) [address], [place], [address], 01/04/2025 15:19:15 01/04/20 25 01/03/2025 [facility]OMEN 'S HE[facility] H SWAB PLUS, JORDI chlamydia trachomatis, PCR Negati ve negati ve Not Available [facility] (Lab) [address], [place], [address], 01/04/2025 15:19:15 01/04/20 25 01/03/2025 [facility]OMEN 'S HE[facility] H SWAB PLUS, JORDI neisseria gonorrhoeae, PCR Negati ve negati ve Bacte rial vagin osis detec ts the follo wing bacte elroy assoc iated with bacte rial vagin osis (BV): Lacto bacil felicity (L. gasse ri, L. crisp atus and L. jense moise), Gardn erell a vagin jenaro, and Atopo bium vagin ae. A singl e quali tativ e resul t is repor velia base on instr ument softw are to deter mine BV posit barry or negat barry statu s. The Theresa [facility] speci es group tests for C. albic ans, C. tropi calis , C. parap clyde is, C. dubli niens is. Testi ng is perfo rmed using the Trans cript ion Media velia Ampli ficat ion metho d. Tests for Theresa da glabr elmer, Trich omona s vagin jenaro, Chlam ydia trach omati s, and Neiss eria gonor rhoea e are also inclu ded in this panel . Not Available [facility] (Lab) [address] [place], [address], 01/04/2025 15:19:15 01/04/20 25 01/03/2025 urina lysis , dipst ick Leukocytes - Not [facility] [address], [place], [address], 01/03/2025 15:04:16 01/04/20 25 01/03/2025 urina lysis , dipst ick Nitrite - Not Available [place] [address], [place], [address], 01/03/2025 15:04:16 01/04/20 25 01/03/2025 urina lysis , dipst ick Protein - Not Available [place] [address], [place], [address], 01/03/2025 15:04:16 01/04/20 25 01/03/2025 urina lysis , dipst ick pH 6 Not Available [place] [address], [place], [address], 01/03/2025 15:04:16 01/04/20 25 01/03/2025 urina lysis , dipst ick Specific Kunia 1.015 Not Available [facility] [address], [place], [address], 01/03/2025 15:04:16 01/04/20 25 01/03/2025 urina lysis , dipst ick Appearance clear Not Available [facility] [address], [place], [address], 01/03/2025 15:04:16 01/04/20 25 01/03/2025 urina lysis , dipst ick Color dark yellow Not Available [place] [address], [place], [address], 01/03/2025 15:04:16 01/04/20 25 01/03/2025 pregn aidee test, urine HCG negati ve Not Available [place] [address], [place], [address], 01/03/2025 13:40:15 05/20/20 24 05/20/2024 imagi ng/di agnos tic resul t No observ ation record ed. [facility] [address], [place], [address], 06/28/2024 14:46:03 01/06/20 25 01/05/2025 US, pelvi s No observ ation record ed. [facility] [address], [place], [address], 01/05/2025 16:44:59 01/06/20 25 01/05/2025 US, trans vagin al No observ ation record ed. [facility] [address], [place], [address], 01/05/2025 16:45:10 01/06/20 25 01/05/2025 US, pelvi s No observ ation record ed. NANO Davis [address], [place], [address], 01/17/2025 20:19:37 Result Notes None recorded. Problems Name Problem SNOMED Code Status Onset Date Resolution Date Notes Provider Name and Address Organization Details Recorded Time Screenin g for malignan t neoplasm of cervix Completed 201504/15/2021 Screenin g for malignan t neoplasm s of the cervix;R ecorded Elsewher e: No Locat ion: [facility] S ource: EHR Pet Training Instructor arnaldo: N Practi ce ID: 0001 Atul lable Time: 01:30:00 PM Cindy easley [place] - [facility] 15:40:09 Abdomina l pain [id number] Completed 201304/15/2021 Abdomina l pain, other specifie d site;Rec orded Elsewher e: No Locat ion: [facility] S ource: EHR Pet Training Instructor arnaldo: Y Practi ce ID: 0001 Atul lable Time: 03:15:00 PM Cindy easley [facility] 15:40:[address] Concept Completed 201704/15/2021 Encntr for national investigative producer exam (general ) (routine ) w/o abn findings ;Recorde d Elsewher e: No Locat ion: [facility] S ource: EHR Pet Training Instructor arnaldo: N Practi ce ID: 0001 Atul lable Time: 10:30:00 AM [facility] 15:40:31 Insertio n of intraute rine contrace ptive device Completed 201704/15/2021 Encounte r for insertio n of intraute rine contrace ptive device;R ecorded Elsewher e: No Locat ion: [facility] S ource: EHR Pet Training Instructor arnaldo: N Practi ce ID: 0001 Atul lable Time: 01:00:00 PM Cindy Uriarte [facility] 15:40:44 Urinary tract infectio us disease [id number] Completed 201112/20/2012 Urinary Tract Infectio n;Record ed Elsewher e: No Locat ion: [facility] S ource: EHR Pet Training Instructor arnaldo: N Practi ce ID: 0001 Atul lable Time: 01:45:00 PM Cindy easley [facility] 1 15:40:48 Atypical squamous cells of undeterm ined signific ance on cervical Papanico laou smear [id number] Completed 201112/20/2012 Papanico laou smear of cervix with atypical squamous cells of undeterm ined signific ance (ASC-US) ;Recorde d Elsewher e: No Locat ion: [facility] S ource: EHR Pet Training Instructor arnaldo: N Practi ce ID: 0001 Atul lable Time: 11:15:00 AM Not Available [facility] 0 18:46:16 Speciali zed medical examinat ion Completed 201204/15/2021 Gynecolo gical Examinat ion;Vin rded Elsewher e: No Locat ion: [facility] S ource: EHR Pet Training Instructor arnaldo: N Jojoti ce ID: 0001 Atul lable Time: 10:30:00 AM Cindy easley [facility] 1 15:40:40 Poor growth affectin g manageme nt [id number] Completed 201111/30/2013 Poor growth, affectin g manageme nt of mother, antepart um conditio n or complica tion;Rec orded Elsewher e: No Locat ion: [facility] S ource: EHR Pet Training Instructor arnaldo: N Jojoti ce ID: 0001 Atul lable Time: 08:30:00 AM Not Available [facility] 0 18:46:16 Infectio n screenin g Completed 201704/15/2021 Encounte r for screenin g for oth infec/pa rastc diseases ;Recorde d Elsewher e: No Locat ion: [facility] S ource: EHR Pet Training Instructor arnaldo: N Jojoti ce ID: 0001 Atul lable Time: 10:30:00 AM Cindy easley [facility] 1 15:40:17 Abnormal weight gain [id number] Completed 201504/15/2021 Abnormal weight gain;Rec orded Elsewher e: No Locat ion: [facility] S ource: EHR Pet Training Instructor arnaldo: N Practi ce ID: 0001 Atul lable Time: 01:30:00 PM Cindy easley [facility] 1 15:39:52 Uterine leiomyom a [id number] Completed 201104/15/2021 Leiomyom a of uterus, unspecif ied;Vin rded Elsewher e: No Locat ion: [facility] S ource: EHR Pet Training Instructor arnaldo: N Jojoti ce ID: 0001 Atul lable Time: 08:15:00 AM Cindy easley [facility] 1 15:40:56 Postpart um care Completed 201012/20/2012 Routine postpart um follow-u p;Record ed Elsewher e: No Locat ion: [facility] S ource: EHR Pet Training Instructor arnaldo: N Jojoti ce ID: 0001 Atul lable Time: 01:30:00 PM Cindy easley [facility] 1 15:39:45 Trichomo nal vulvovag initis [id number] Completed 201804/15/2021 Trichomo nal vulvovag initis;R ecorded Elsewher e: No Locat ion: [facility] S ource: EHR Pet Training Instructor arnaldo: N Jojoti ce ID: 0001 Atul lable Time: 11:30:00 AM Cindy easley [facility] 1 15:40:52 Pregnanc y test positive [id number] Completed 201111/30/2013 Pregnanc y examinat ion or test, positive result;R ecorded Elsewher e: No Locat ion: [facility] S ource: EHR Pet Training Instructor arnaldo: N Reyna ce ID: 0001 Atul lable Time: 01:30:00 PM Cindy easley [facility] 1 15:40:20 Dysuria [id number] Completed 201404/15/2021 Dysuria; Recorded Elsewher e: No Locat ion: [facility] S ource: EHR Pet Training Instructor arnaldo: N Jojoti ce ID: 0001 Atul lable Time: 03:15:00 PM Cindy easley [facility] 1 15:40:37 Syphilis test finding [id number] Completed 05/07/ 2018 04/15/2021 Encntr screen for infectio ns w sexl mode of transmis s;Record ed Elsewher e: No Locat ion: Shahbaz rushing [facility] S ource: EHR Pet Training Instructor arnaldo: N Jojoti ce ID: 0001 Atul lable Time: 10:30:00 AM Cindy easley, [facility] 1 15:40:32 Body mass index 30+ - obesity 635867146 Completed 201504/15/2021 Body mass index (BMI) 35.0-35. 9, adult;Re corded Elsewher e: No Locat ion: [facility] S ource: EHR Pet Training Instructor arnaldo: N Practi ce ID: 0001 Atul lable Time: 01:30:00 PM Cindy easley, [facility] 1 15:40:06 Routine antenata l care Completed 201111/30/2013 Supervis ion of other normal pregnanc y;Record ed Elsewher e: No Locat ion: [facility] S ource: EHR Pet Training Instructor arnaldo: N Jojoti ce ID: 0001 Atul lable Time: 08:45:00 AM Cindy easley [facility] 1 15:39:47 Pregnanc y test negative [id number] Completed 201704/15/2021 Encounte r for pregnanc y test, result negative ;Recorde d Elsewher e: No Locat ion: [facility] kristan [facility] S ource: EHR Pet Training Instructor arnaldo: N Jojoti ce ID: 0001 Atul lable Time: 01:00:00 PM Cindy easley [facility] 1 15:40:21 Adult health examinat ion Completed 201204/15/2021 Routine Medical Exam;Rec orded Elsewher e: No Locat ion: [facility] S ource: EHR Pet Training Instructor arnaldo: N Practi ce ID: 0001 Atul lable Time: 01:00:00 PM Cindy easley [facility] 15:40:25 Removal of intraute rine device Completed 201704/15/2021 Encounte r for removal of intraute rine contrace ptive device;P ractice ID: 0001 Cindy easley, [facility] 15:40:46 Contrace ptive sheath status [id number] Completed 201804/15/2021 Encounte r for routine checking of intraute rine contrace p dev;Prac roberto ID: [address] [facility] 15:40:18 Pregnanc y test positive [id number] Completed 201404/15/2021 Positive Pregnanc y Test;Pra ctice ID: [address] [facility] 15:40:20 Female genital organ symptoms [id number] Completed 201404/15/2021 Pelvic Pain;Pra ctice ID: 0001 Cindy Uriarte [facility], [facility] 15:40:11 Family planning surveill ance Completed 201304/15/2021 Contrace ptive surveill ance, unspecif ied;Prac roberto ID: [address] [facility] 15:40:[address] Concept Completed 201704/15/2021 Encntr for general adult medical exam w/o abnormal findings ;Recorde d Elsewher e: No Locat ion: Shahbaz rushing [facility] S ource: EHR Pet Training Instructor arnaldo: N Practi ce ID: 0001 Atul lable Time: 10:30:00 AM [facility] 15:40:29 Insertio n of intraute rine contrace ptive device Completed 201212/20/2012 INSERTIO N OF IUD;Vin rded Elsewher e: No Locat ion: [facility] S ource: EHR Pet Training Instructor arnaldo: N Jojoti ce ID: 0001 Atul lable Time: 08:30:00 AM Cindy easley, [facility] 1 15:40:44 Female genital organ symptoms [id number] Completed 201112/20/2012 Unspecif ied symptom associat ed with female genital organs;R ecorded Elsewher e: No Locat ion: [facility] N Jojoti ce ID: 0001 Atul lable Time: 01:45:00 PM Cindy easley, [facility] 1 15:40:11 Speciali zed medical examinat ion Completed 201112/20/2012 Gynecolo gical Examinat ion;Vin rded Elsewher e: No Locat ion: [facility]: N Jojoti ce ID: 0001 Atul lable Time: 01:00:00 PM Cindy easley, [facility] 1 15:40:40 Surveill ance of contrace ption Completed 201804/15/2021 Encounte r for surveill ance of contrace ptives, unspecif ied;Vin rded Elsewher e: No Locat ion: [facility]: N Jojoti ce ID: 0001 Atul lable Time: 11:30:00 AM Cindy easley, [facility] 1 15:40:51 Pregnanc y test negative [id number] Completed 201212/20/2012 Pregnanc y examinat ion or test, negative result;R ecorded Elsewher e: No Locat ion: [facility]: N Jojoti ce ID: 0001 Atul lable Time: 08:30:00 AM Cindy easley, [facility] 15:40:21 Routine antenata l care Completed 201004/15/2021 Supervis ion of other normal pregnanc y;Jojoti ce ID: 0001 Cindy Uriarte tracee, [facility] 15:39:47 Delivery normal [id number] Completed 201004/15/2021 Normal delivery ;Practic e ID: 0001 Cindy Uriarte tracee, [facility] 15:40:36 Single live from singleto n pregnanc y [id number] Completed 201004/15/2021 Mother with single liveborn ;Practic e ID: 0001 Cindy Moffit tracee, [facility] 15:40:07 Verruca vulgaris [id number] Completed 201104/15/2021 Warts Genital; Practice ID: 0001 Cindy Chapito easley, [facility] 15:40:43 Amenorrh ea 15385176 Completed 201104/15/2021 AMENORRH EA;Pract ice ID: 0001 Cindy Moffit tracee, [facility] 15:39:49 Uterine size for dates discrepa ncy 957341815 Completed 201104/15/2021 UTERINE SIZE CUAUHTEMOC-ANTE PAR;Prac roberto ID: 0001 Cindy Moffit tracee, [facility] 15:40:35 Mild hypereme sis-not delivere d [id number] Completed 201104/15/2021 Mild hypereme sis gravidar um, antepart um;Pract ice ID: 0001 Cindy Chapito easley, [facility] 15:40:12 Leukopen ia [id number] Completed 201104/15/2021 LEUKOCYT OPENIA NOS;Prac roberto ID: 0001 Cindy easley, [facility] 15:40:54 Urinary tract infectio us disease 60179557 Completed 201104/15/2021 Urinary tract infectio n, site not specifie d;Reyna ce ID: 0001 Cindy easley, [facility] 15:40:48 anatomy study Completed 201104/15/2021 [facility] ANATMC SURVEY;P ractice ID: 0001 Cindy easley, [facility] 15:40:27 Primigra leonor [id number] Completed 201004/15/2021 Supervis ion of normal first pregnanc y;Reyna ce ID: [address] [facility] 15:39:43 Excessiv e growth affectin g manageme nt of mother 97113502 Completed 201111/30/2013 Excessiv e growth, affectin g manageme nt of mother, antepart um;Recor ded Elsewher e: No Locat ion: [facility] S ource: EHR Pet Training Instructor arnaldo: N Jojoti ce ID: 0001 Atul lable Time: 11:30:00 AM Cindy easley [facility] 15:40:15 Excessiv e growth affectin g manageme nt of mother 23393372 Completed 201104/15/2021 GROWTH LARGE LGA;Prac roberto ID: 0001 Cindy easley, [facility] 15:40:15 Educatio n Completed 201204/15/2021 Counseli ng contrace ptive manageme nt;Pract ice ID: 0001 Cindy easley, [facility] 15:40:39 Postpart um care Completed 201104/15/2021 Routine postpart um follow-u p;Reyna ce ID: 0001 Cindy Uriarte tracee, [facility] 15:39:45 Problem Notes None recorded. Procedures Surgical History Date Name Laterality Status Provider Name and Address Organization Details Recorded Time 03/08/20 24 Date of Last Pap Smear completed Bev Lu [facility] 01/03/2025 12:39:49 10/14/20 21 Date of Last Mammogram completed Desire Seo [facility] 05/29/2022 17:05:27 10/26/19 14 Appendectomy completed [facility] 08/20/2020 15:19:08 10/26/19 13 cholecystectomy completed [facility] 08/20/2020 15:19:16 10/26/19 09 Laparoscopy completed [facility] 08/20/2020 15:19:41 10/26/19 08 Dilation and Curettage completed [facility] 08/20/2020 15:18:58 10/26/18 97 extraction of wisdom tooth completed [facility] 08/20/2020 15:18:49 Imaging Results Imaging Date Name Status LastModified by Organization Details LastModified Time 05/20/2024 imaging/diagnost ic result completed [facility] [address], [place], [address], 06/28/2024 14:46:03 01/05/2025 US, pelvis completed carolyn Tafoya [address], [place], [address], 01/05/2025 16:44:59 01/05/2025 US, transvaginal completed carolyn rushing [address], [place], [address], 01/05/2025 16:45:10 01/05/2025 US, pelvis completed NANO Susan [address], [place], [address], 01/17/2025 20:19:37 Procedure Notes None recorded. Medical Equipment None Reported. Allergies Allergen ID Allergen Name Allergen Category Reaction Reaction Severity Criticality Documentation Date Start Date Code Code System Note Provider Name and Address Organization Details Recorded Time 76816 Flagyl medicatio n Not available Not available Not available 05/20/20212020 6 RxNorm Patie nt repor ts only GI upset from chanelle kwan t. [place], [facility]- [address], [place], [address], [facility] 2 17:39:38 2506 acetamino phen medicatio n Not available Not available Not available 08/20/2020 161 RxNorm Maria M Bain [facility], [facility] 0 15:19:58 2507 doxycycli ne Not available Not available Not available Not available 08/20/2020 3640 RxNorm Maria M Bani [facility], [facility] 0 15:20:16 2508 propoxyph avery medicatio n Not available Not available Not available 08/20/2020 8785 RxNorm Maria M Bain [facility], [facility] 0 15:20:29 Medications Name Sig Start [...] Prescrib ed Elsewher e: No Locat ion: [facility] odify By: maribel Doe nter DateTime : 01/08/20 12 10:16:57 AM Not Available Not Available Not Available Pyridium 200 mg tablet take 1 tablet (200MG) by oral route 3 times every day after meals 01/01 completed Prescrib ed Elsewher e: No Locat ion: [facility] odify By: chucky patel DateTime : 11/11/19 14 03:15:00 PM Not [...] Elsewher e: No Locat ion: [facility] rushing [facility] odify By: maribel Doe nter DateTime [...] Elsewher e: Yes Loca tion: [facility]baz rushing [facility] odify By: colette Rushing ncounter DateTime : 01/02/20 16 01:30:00 [...] Prescrib ed Elsewher e: No Locat ion: Lisseth kristan [facility] odify By: laquita Rushing ncounter DateTime [...] ed Elsewher e: No Locat ion: [facility] odify By: maribel Doe nter DateTime : 12/10/19 12 01:30:00 PM Not Available Not Available Not Available Wellbutri n 75 mg tablet take 1 tablet by oral route 3 times every day 12/10 completed Prescrib ed Elsewher e: Yes Loca tion: Shahbaz rushing [facility] odify By: ar sergio Jayla crowder DateTime : 06/03/20 11 08:17:58 AM Not Available Not Available Not Available Slow Fe 47.5 mg iron tablet,ex tended release 08/31 completed Prescrib ed Elsewher e: Yes Loca tion: [facility] odify By: maribel Doe nt DateTime : 12/03/19 12 01:00:00 PM Not Available Not Available Not Available oxybutyni n chloride ER 5 mg tablet,ex tended release 24 hr TAKE 1 TABLET BY MOUTH EVERY DAY 05/29 completed Not Available Not Available Not Available clindamyc in 2 % vaginal cream INSERT 1 APPLICAT ORFUL VAGINALL Y EVERY DAY AT BEDTIME FOR 7 DAYS 02/04 completed Not Available Not Available Not Available Valtrex 500 mg tablet take 1 tablet (500MG) by oral route every day 08/31 completed Prescrib ed Elsewher e: No Locat ion: Shahbaz rushing [facility] odify By: maribel edwards DateTime : 07/23/20 11 02:30:00 PM Not [...] mcg (50,000 unit) capsule take 1 capsule ([id number] ITS) by oral route every week 08/31 completed Prescrib ed Elsewher e: No Locat ion: [facility] odify By: maribel Doe ntwil DateTime : 05/20/20 12 03:54:52 PM Not [...] Prescrib ed Elsewher e: Yes [facility] By: ar crowder DateTime : 11/30/19 [...] Prescrib ed Elsewher e: No Locat ion: [facility] odify By: maribel encinas DateTime : 06/24/20 12 11:30:00 AM Not [...] Available metronida zole 1 % topical gel 02/04 completed Not Available Not Available Not Available Claritin [...] Prescrib ed Elsewher e: Yes Loca tion: [facility] odify By: amhu Rushing ncojamie DateTime : 01/02/20 16 01:30:00 PM Not [...] Updated DateTime 03/08/2024 160.66 cm 33.7 kg/m2 64663.74 g 117 mm[Hg] 82 mm[Hg] Lisa Cowart [facility] 4 12:55:17 Date Recorded Body height Body mass index (BMI) Body weight Systolic blood pressure Diastolic blood pressure Provider Name and Address Organization Details Last Updated DateTime 01/03/2025 160.66 cm 34.1 kg/m2 58790.92 g 124 mm[Hg] 87 mm[Hg] Bev Winslowney [facility] 5 12:38:04 Date Recorded Body height Body mass index (BMI) Body weight Systolic blood pressure Diastolic blood pressure Provider Name and Address Organization Details Last Updated DateTime 02/04/2025 160.66 cm 33.8 kg/m2 48271.45 g 142 mm[Hg] 84 mm[Hg] She Espinoza [facility] 5 12:40:43 Social History Question Answer Notes LastModified by Organizat ion Details LastModified Time Tobacco Smoking Status Current Some Day Smoker Pt smokes 5-6 cigarettes a weekend Maria M easley, [facility] 08/28/2020 12:55:47 Are You Blind Or Do You Have Difficulty Seeing? No Information not available 06/13/2022 What Is Your Level Of Caffeine Consumption? Occasional Information not available 06/13/2022 In The 14 Days Before Symptom Onset, Have You Had Close Contact With A Laboratory-confi rmed COVID-19 While That Case Was Ill? No Information [...] Yes Information not available 06/13/2022 Do You Use Sunscreen Routinely? Yes Information not available 06/13/2022 Do You Have Difficulty Walking Or Climbing Stairs? Yes Information not available 12/31/2022 Sex: Unknown Functional Status Question Answer Note LastModified by Organizat ion Details LastModified Time Do you use any illicit or recreational drugs? No Information not available 06/13/2022 What is your level of alcohol consumption? Occasional once a week Information not available 08/28/2020 Are you able to walk? YESASSIST Information not available 12/31/2022 Are you able to care for yourself? Yes Information not available 06/13/2022 Do you have difficulty dressing or bathing? No Information not available 06/13/2022 What is your exercise level? Occasional yoga and walking Information not available 08/28/2020 Mental Status Question Answer Note LastModified by Organization D etails LastModified Time Do you feel stressed (tense, restless, nervous, or anxious, or unable to sleep at night)? [id number] Information not available 06/13/2022 Family History Relationship Description Onset Age of this Age Resolved Age Notes LastModified by Organization Details LastModified Time Father Hypertensive disorder jgumber Not available 2019 15:16:19 Father Heart disease jgumber Not available 2019 15:16:35 Paternal Grandfather Heart disease jgumber Not available 2019 15:16:35 Paternal Grandfather Coronary artery bypass graft jgumber Not available 15:17:14 Mother Malignant tumor of colon iasiwil Not available 2019 15:16:48 Mother Family history of breast cancer isaiwil Not available 2019 15:17:02 Medical History Condition Response Anxiety Disorder Y Other Depression/ depression Y History of STI Gynecological History Statement/Question Response Abnormal Pap Y [...] SNOMED-CT Code Diagnosis ICD10 Code Diagnosis Note [id number] Ino Pollack MD [place] [address] [address] 06/15/2020 11:56:52 07/01/2020 17:44:03 [id number] Elizabeth Almaguer [address] [address] 08/28/2020 12:00:33 08/28/2020 12:46:20 Pain in pelvis 85005683 R10.2 No pain on exam with the [...] STD and vaginitis panel collected. Enlarged uterus 54737182 4 N85.2 U/S scheduled. Urinary tr act infectious disease 66661147 N39.0 Increase water and decrease caffeine. Urine sent for culture. Will start macrobid d/t sp tenderness and urine dip. [id number] Ino Pollack MD [place] [address],[place] [address] 09/06/2020 15:16:50 09/06/2020 16:07:11 Pain in pelvis 22420220 R10.2 [id number] Ino Pollack MD [place] [address],[place] [address] 05/13/2021 15:57:38 05/13/2021 17:02:27 Pain in pelvis 98435061 R10.2 Abnormal u terine bleeding 2879863609 9100 N93.9 [id number] MD Michelet Bucio [address],[place] [address] 06/19/2021 12:36:42 06/19/2021 16:49:18 Pain in pelvis 90938797 R10.2 [id number] MD Michelet Bucio [address],[place] [address] 06/20/2021 10:54:23 06/20/2021 14:00:06 Insomnia 514679620 G47.00 Urgent cuauhtemoc cristian to urinate 18986582 R39.15 Pain in pelvis 61502038 R10.2 Cyst of ovary 32698300 N 83.209 this patient is a 41-year-ol [...] over 30 minutes discussing 3 complex topics. [id number] MD Michelet Bucio [address],[place] [address] 08/02/2021 10:26:13 08/02/2021 13:59:50 Pain in pelvis 01372845 R10.2 [id number] Elizabeth Kovacsmacibryan [facility] [address],[place] [address] 09/30/2021 14:40:07 10/01/2021 19:08:30 Gynecologic examination 54918174 Z01.419 Z11.51 Suggested Calcium with Vitamin D 1200-1500m g daily. Patient advised to get an annual flu shot in the fall and she could obtain at [facility] or [facility] care clinic. Also to obtain [...] respond to this email. Pain of breast 69152052 N64.4 Diagnostic merlene and u/s ordered. If nl will rtc in 6 weeks. If abnormal imaging will schedule with specialist idalia If nl imaging but pain persists at 6 week f/u will need to see specialist . [id number] Irish Fu [facility] [address],[facility] [place] [address] 05/29/2022 16:51:24 05/30/2022 16:23:47 Vaginitis 40951862 N76.0 Suspect BVRx senttestin g sent Time spent in visit is a total of 15 mins with at least 50% of visit consisting of counseling and review of plan of care. Urinary symptoms 9079717 08 R39.9 [id number] Irish Fu [facility] [address],[place] [address] 06/13/2022 10:48:34 06/13/2022 11:36:43 Pain in pelvis 58825215 R10.2 N39.0 Today we agreed to updated [...] counseling and review of plan of care. [id number] Ino Pollack MD [place] [address],[place] [address] 06/16/2022 15:20:30 06/16/2022 17:08:02 Pain in pelvis 89420310 R10.2 [id number] Irish Fu [facility] [address],[place] [address] 06/24/2022 12:17:51 06/24/2022 13:36:42 Pain in pelvis 83774541 R10.2 N39.0 US results reviewed.R ecommended consult [...] and review of plan of care. Vaginitis 40332198 N76.0 Suspect yeast from recent abx initiation .Rx sent [id number] Ino Pollack MD [place] [address],[place] [address] 07/31/2022 10:47:40 07/31/2022 11:23:22 Cyst of right ovary 4140097513 9520477 N83.291 [id number] Ino Pollack MD [place] [address],[place] [address] 08/09/2022 11:19:20 08/11/2022 15:31:00 Cloudy urine 7848348 R82.90 Pain in pelvis 69385284 R10.2 Cyst of right ovary 1223 882633 6001260 N83.291 this patient is a 42-year-ol d [...] decision to perform surgery. Female sterilization 608 54937 Z30.2 [id number] Irish Fu [facility] [address] [address] 12/31/2022 11:14:30 12/31/2022 12:37:41 Gynecologic examination 21995773 Z01.419 Suggested Calcium with Vitamin D 1200-1500m g daily. Patient advised to get an annual flu shot in the fall and she could obtain at [facility] or [facility] care clinic. Also to obtain [...] netic Screen discussedC olon Screen PCPDexa Screen naRoutine Labs PCPMammo-o rderedA Mirena IUD prevents for up to 8 years, and also helps with heavy periods for up to 5 years in women who choose an IUD for control. Screening mammography 24 723236 Z12.31 Pain in pelvis 35827432 R10.2 N39.0 Encouraged updated visit with Dr. Pollack to discuss surgery. [id number] Ino Pollack MD [place] [address] [address] 01/05/2023 11:00:32 01/05/2023 11:37:46 Cyst of right ovary 8559644603 4575535 N83.291 this patient is a 42-year-ol d [...] We made a decision to perform surgery. [id number] [facility] [address] [address] 04/21/2023 16:29:32 04/22/2023 10:07:15 Vaginitis 04679142 N76.0 Suspect BV/yeast.L ikely continues with sweating in tight work out wear in hot weather.Rx sentDeclin ed need std screenCons ider boric acid vaginal suppressiv e therapy if this becomes recurrent issue. Time spent in visit is a total of 20 mins with at least 50% of visit consisting of counseling and review of plan of care. [id number] ERIC Silverman [place] [address] [address] 06/02/2023 15:13:55 06/03/2023 17:15:49 Pain in pelvis 71325420 R10.2 This patient is a 43 -year-old [...] t of chronic pelvic pain Urinary symptoms 7331232 08 R39.9 [id number] Ino Pollack MD [place] [address] [address] 06/03/2023 15:25:41 06/03/2023 16:58:11 Pain in pelvis 27571951 R10.2 [id number] Ino Pollack MD [place] [address] [address] 06/04/2023 11:30:12 06/04/2023 12:28:28 Chronic pelvic pain of female 286855876 R10.2 this patient is a 43-year-ol d [...] and right oophorecto my. Cyst of ovary 85396300 N 83.209 Dyspareunia 28426633 N94 .10 Gynecologi c examination 20988263 Z01.419 Z11.51 [id number] Marzena Bone JEREMY [place] [address],[facility] [place] [address] 03/08/2024 12:51:03 03/08/2024 13:52:29 Urinary symptoms 196185656 R39.9 Gynecologi c examination 05409875 Z01.419 [facility] - Mirena IUD, inserted 03/24/2018 - will 03/24/2026p ap updateddec lined STI screenmamm ogram is scheduledc olonoscopy - pt waiting until insurance active to schedulero utine labs UTD/PCPRTC in 1 yr or sooner if needed urine cx sent - will update pt with results when availablep recautions reviewed, encouraged to avoid bladder irritants Suggested Calcium with Vitamin D daily. Patient advised to get an annual flu shot in the fall and she could obtain at [facility] or [facility] care clinic. Also to obtain [...] please call or respond to this email. [id number] Marzena Bone JEREMY [place] [address],[place] [address] 06/22/2024 10:04:58 06/22/2024 10:36:04 Urinary symptoms 067407478 R39.9 [id number] Marzena Bone JEREMY [place] [address],[place] [address] 01/03/2025 12:29:01 01/03/2025 15:26:32 Pain in pelvis 21064013 R10.2 This patient is a 43 -year-old [...] further evaluation /managemen t of pelvic pain [id number] Ino Pollack MD [place] [address] [address] 01/05/2025 10:50:33 01/05/2025 11:49:47 Pain in pelvis 84326802 R10.2 [id number] Ino Pollack MD [place] [address] [address] 02/04/2025 12:21:05 02/05/2025 08:38:15 Female sterilization 70500375 Z30.2 Pain in pelvis 69883311 R10.2 Cyst of right ovary 1223 921605 9118599 N83.291 this patient is 45-year-ol d female with longstandi ng pelvic pain and recurrent right ovarian cyst. She would like the ovary removed. We agreed to do this a year ago. She lost her insurance. We will proceed at this time. We will perform laparoscop ic bilateral salpingect dhaval and right oophorecto my. The patient understand s the procedure. The procedure was described to the patient in great detail. the patient also understand s the risks. The risks were also explained in detail. She understand s that injuries May occur during surgery. She understand s these injuries can result in hospitaliz ation, more surgery, and severe illness. She understand s there is risk of hemorrhage and infection. Health Concerns Section Related Observation LastModified by Organization Detai ls LastModified Time None Recorded Concern Status LastModified by Organization Details LastModified Time None Recorded Advance Directives Directive None Recorded Payers Encounter Date Sequence Insurance Name Policy Number Policy Schumacher Covered Member ID Schumacher Member ID Guarantor Name 03/08/2024 1 *SELF PAY* Lucia Begum 06/22/2024 1 [place] [employer] [place] [employer] Amber Begum [id number] Amber Begum 01/03/2025 1 [facility] (MEDICAID HMO) [id number] Amber Begum [id number] Amber Begum 01/05/2025 1 [facility] (MEDICAID HMO) [id number] Amber Begum [id number] Amber Begum 02/04/2025 1 [facility] (MEDICAID HMO) [id number] Amber Begum [id number] Amber Begum Notes Date Note Type Note Provider Name and Address Organization Details Recorded Time 03/08/2024 text/html Annual GYNReport ed bypatient.Menstrual cycle:Normal [...] use; Encourage regular mammograms starting age 39Notes:44yo [id number] pap 12/2022 : nilm, HPV (-)mammogram scheduled [...] flank pains ERIC Silverman [address], [place], [address], [facility] 03/08/2024 14:31:22 01/03/2025 text/html 44yopresents for right sided pelvic painright sided pelvic pain x 1 month. However has been experiencing episodes of pelvic pain that comes and goes over the past 2-3 yrs.ache/cramp that comes and goesradiates to back at timesMirena IUD for BC - inserted 03/24/2018pain with ICno new partners neg d/c, odors, itchingneg urinary symptomsneg n/v/fneg flu-like symptoms ERIC Silverman [address], [place], [address], [facility] 01/03/2025 15:20:57 02/04/2025 text/html this patient is 45-year-old female with longstanding pelvic pain and recurrent right ovarian cyst. She would like the ovary removed. We agreed to do this a year ago. She lost her insurance. We will proceed at this time. We will perform laparoscopic bilateral salpingectomy and right oophorectomy. The patient understands the procedure. The procedure was described to the patient in great detail. the patient also understands the risks. The risks were also explained in detail. She understands that injuries May occur during surgery. She understands these injuries can result in hospitalization, more surgery, and severe illness. She understands there is risk of hemorrhage and infection. Ino Pollack MD [address], [place], [address], [facility] 02/04/2025 13:24:18 OBGyn Episode Ob Episode Information Episode Created Date Number of Fetuses Patient Bloodtype Patient rh Status Prepregnancy Weight lbs Domestic Partner Domestic Partner Phone Father Name Pododermatologist Status 08/20/20 20 1 CLOSED Fetus Data [...] Domestic Partner Domestic Partner Phone Father Name Pododermatologist Status 08/20/20 20 1 CLOSED Fetus Data [...] Domestic Partner Domestic Partner Phone Father Name Pododermatologist Status 08/20/20 20 1 CLOSED Fetus Data [...] Domestic Partner Domestic Partner Phone Father Name Pododermatologist Status 08/20/20 20 1 CLOSED Fetus Data [...] Domestic Partner Domestic Partner Phone Father Name Pododermatologist Status 08/20/20 20 1 CLOSED Fetus Data First Name Last Name Admitted to NICU Weight (g) Sex Living Outcome Pediatric Complications Fetus ID Race Codes Race Delivery Type 3656.85 8704 M Full Term 5653 Vaginal Delivery [...] Domestic Partner Domestic Partner Phone Father Name Pododermatologist Status 08/20/20 20 1 CLOSED Fetus Data First Name Last Name Admitted to NICU Weight (g) Sex Living Outcome Pediatric Complications Fetus ID Race Codes Race Delivery Type 3713.55 7704 M Full Term 5654 Vaginal Delivery Manuel Calculation Initial Manuel Date Initial Exam Date Initial Exam Provider Initial Ultrasound Date Last Menstrual Period Date Ultra Sound Weeks Gestation 0 Eighteen To Twenty Week Amnuel Update Ultra Sound Date Fundal Height At [...] Domestic Partner Domestic Partner Phone Father Name Pododermatologist Status 06/20/20 21 1 CLOSED Fetus Data First Name Last Name Admitted to NICU Weight (g) Sex Living Outcome Pediatric Complications Fetus ID Race Codes Race Delivery Type 3713.55 7704 M Full Term 21256 Vaginal Delivery Manuel Calculation Initial Manuel Date [...]
[2025-03-19 18:36] VITALS: BP 133/94; PULSE 92; RESP 18; O2SAT 100
--- NOTE | 2025-03-19 19:28 | ED_ITS ---
HPI - Dental/Oral General Chief complaint: Dental/Oral Stated complaint: facial infection Time Seen by Provider: 03/19/25 18:36 History of Present Illness HPI Narrative: Patient is a 45-year-old female who presents to the ER with left sinus/dental pain. She reports she had a crown break off of her left upper molar and her dentist put her on Augmentin. Patient reports she has taken 2 weeks of Augmentin and endorses increased left-sided facial pain. She reports she has a follow-up appoint on Thursday, 2 days from today. Patient reports she needs a root canal performed but they not do the procedure if she has an infection. She denies any pus, recent fevers, mastoid tenderness. Patient endorses chills, lightheadedness, weakness. She reports pain is under her left eye and radiates to her left ear and around her L eye socket. Patient also reports she has had diarrhea for the past 6-7 days. Related Data Home Medications ?Medication ?Instructions ?Recorded ?Confirmed ?Last Taken ?Type multivitamin 1 tablet PO DAILY 09/01/22 12/30/24 Unknown History loratadine 5 mg-pseudoephedrine ER 1 tablet PO Q12H 12/30/24 12/30/24 Unknown History 120 mg tablet,extended release,12hr (Claritin-D 12 Hour) Allergies Allergy/AdvReac Type Severity Reaction Status Date / Time propoxyphene Allergy Intermediate SOB & Verified 03/19/25 18:41 TIGHTNESS IN THROAT doxycycline Allergy Mild Other Verified 03/19/25 18:41 strawberry Allergy Unknown Unknown Verified 03/19/25 18:41 tetracycline Allergy Unknown Unknown Verified 03/19/25 18:41 acetaminophen (From Allergy Shakiness Verified 03/19/25 18:41 Tylenol-Codeine #3) codeine (From Allergy Shakiness Verified 03/19/25 18:41 Tylenol-Codeine #3) Review of Systems 2 Review of Systems: All systems reviewed & are unremarkable except as noted in HPI and below PMFSH Past Medical History Medical History History of panic attacks Surgical History Surgical History Hx of cholecystectomy History of appendectomy Family History Family History Father Family history of thyroid disease Hypertension Family history of elevated blood lipids Family history of heart disease in male family member before age 55 Family history of alcoholism Family history of cardiovascular disease Family history of arthritis Sibling Family history of thyroid disease Family history of ulcerative colitis Depression Family history of anemia Family history of colitis Mother Family history of gastrointestinal disorder Carcinoma of colon Family history of malignant neoplasm of breast in first degree relative Family history of mental disorder Family history of anemia Family history of arthritis Grandparent Family history of osteoporosis Family history of Alzheimer's disease Family history of hearing loss Other Cerebrovascular accident Family history of allergic disorder Family history of glaucoma Family history of malignant neoplasm of breast Social History Social History Smoking packs per day: 0.5 Smoking cigarettes per day: 10.0 Years smoked: 9 Smoking pack-years: 4.50 Smoking status: Current some day smoker Tobacco type: cigarettes Smoking end date: 10/26/03 Additional smoking assessment comments: CURRENT SOCIAL SMOKER Alcohol intake: current Alcohol use details: 2/MONTH Substance use: never Substance use type: does not use Lack of Transportation: No Lack of Food: Never True Current Housing: I Have Housing Concerned About Future Housing: No Difficulty Paying Gas/Electric Bills: No Difficulty Paying for Meds: No Currently Unemployed: No Education: Trade/Vocational Certificate Difficulty w/ Childcare or Family Care: No Living arrangements: with family Additional living arrangements comments: SONS Spiritual care concerns: No Exam 2 Narrative: GENERAL: Well appearing, well-nourished, non-toxic, in no acute distress. HEAD: Normocephalic, atraumatic. Visible tooth decay, but no purulence drainage, redness to gums. No shooting pain. No concern for trigeminal neuralgia. NECK: Supple. No adenopathy, no masses. RESPIRATORY: Airway patent, respirations nonlabored. Clear to auscultation bilaterally, no rales, rhonchi, wheezing. CARDIOVASCULAR: Regular rate and rhythm without murmurs, rubs, or gallops. Peripheral pulses 2+ and equal bilaterally. ABDOMINAL: Soft, nontender, nondistended, no hepatosplenomegaly. Normoactive BS. MUSCULOSKELETAL: Moves all extremities. Strength/ROM intact without gross deformities. SKIN: Warm, dry, normal color. No rashes. NEURO: A&O X3. Speech clear. Cranial nerves II-XII intact. No ataxic movements. PSYCHIATRIC: Appropriate mood and affect. Normal interaction. Course Vital Signs Vital signs: Vital Signs Pulse Rate 92 03/19/25 18:36 Respiratory Rate 18 03/19/25 18:36 Blood Pressure 133/94 H 03/19/25 18:36 Pulse Oximetry 100 03/19/25 18:36 Oxygen Delivery Room Air 03/19/25 18:36 Pulse Rate 92 03/19/25 18:36 Respiratory Rate 18 03/19/25 18:36 Blood Pressure 112/88 03/19/25 19:48 Pulse Oximetry 100 03/19/25 18:36 Oxygen Delivery Room Air 03/19/25 18:36 MDM - Dental/Oral MDM Narrative Medical decision making narrative: Patient is a 45-year-old female who presents to the ER with left sinus/dental pain. She reports she had a crown break off of her left upper molar and her dentist put her on Augmentin. Patient reports she has taken 2 weeks of Augmentin and endorses increased left-sided facial pain. She reports she has a follow-up appoint on Thursday, 2 days from today. Patient reports she needs a root canal performed but they not do the procedure if she has an infection. She denies any pus, recent fevers, mastoid tenderness. Patient endorses chills, lightheadedness, weakness. She reports pain is under her left eye and radiates to her left ear and around her L eye socket. Patient also reports she has had diarrhea for the past 6-7 days. Labs Ordered: CBC, CMP Imaging Ordered: CT facial bones Medications Ordered: Toradol 15 mg IV, prednisone 40 mg p.o., 1 L normal saline IV bolus Results: Patient's CMP indicates a BUN of 5 and a creatinine of 0.58. Her CBC is within normal limits and does not indicate any concerns for infection. Patient's CT scan indicates No facial fracture. No definite abnormality seen in the area of the upper and lower mandibles. Diagnosis: Left facial pain, left facial swelling Patient Education/Shared MDM: Results of lab work and imaging shared with patient. She endorses mild improvement of symptoms following medication administration. Patient strongly advised to maintain hydration status upon discharge and follow-up with their dentist on Thursday, as planned. She will be discharged home with no new prescriptions. Strict return precautions provided. Patient verbalized understanding and is in agreement with plan. Vital signs stable at time of discharge. All questions answered. Differential Diagnosis Differential diagnosis: Likely gingival abscess, dental caries and dental abscess Lab Data Attestation: I reviewed the patient's lab results. 03/19/25 19:47 03/19/25 19:47 Labs: Lab Results 03/19/25 Range/Units 19:47 WBC 5.3 (4.5-10.0) K/mm3 RBC 4.24 (4.2-5.4) M/mm3 Hgb 13.3 (12.0-15.0) g/dL Hct 39.6 (37.0-47.0) % MCV 93.4 (80-100) fl MCH 31.4 (26-34) pg MCHC 33.6 (32-36) g/dl RDW 12.7 (11.5-14.5) % Plt Count 239 (150-375) k/mm3 MPV 10.6 H (7.4-10.4) fl Immature Gran % (Auto) 0.2 (0-0.5) % Neut % (Auto) 67.3 (45.5-73.1) % Lymph % (Auto) 23.0 (18.3-44.2) % Winston % (Auto) 5.1 (2.6-8.5) % Eos % (Auto) 4.0 (0-4.4) % Baso % (Auto) 0.4 (0.2-1.2) % Lymph # (Auto) 1.21 (0.9-3.2) K/mm3 Winston # (Auto) 0.3 (0.1-0.6) K/mm3 Eos # (Auto) 0.2 (0-0.3) K/mm3 Baso # (Auto) 0.0 (0.0-0.1) K/mm3 Abs Immat Gran (auto) 0.01 (0.00-0.031) K/mm3 Absolute Neuts (auto) 3.6 (1.3-6.7) K/mm3 Absolute Nucleated RBC 0.000 (0.0-0.012) K/mm3 Nucleated RBC % 0.0 (0.0-0.2) % Sodium 139 (137-145) mmol/L Potassium 3.9 (3.4-5.0) mmol/L Chloride 107 (98-107) mmol/L Carbon Dioxide 27 (22-30) mmol/L Anion Gap 5 (4-12) mmol/L BUN 5 L (7-17) mg/dL Creatinine 0.58 L (0.7-1.0) mg/dL Estim Creat Clear Calc 103 ml/min Estimated GFR > 60 (59 - ) Glucose 88 (65-110) mg/dL Calcium 8.5 (8.4-10.2) mg/dL Total Bilirubin 0.9 (0.2-1.3) mg/dL AST 25 (14-36) U/L ALT 17 (6-35) U/L Alkaline Phosphatase 49 (38-126) U/L Total Protein 7.0 (6.3-8.2) g/dL Albumin 4.2 (3.5-5.1) g/dL Imaging Data Attestation: I personally reviewed and interpreted this imaging study as follows: Radiologist's impression: Impressions Face CT 03/19/25 21:28 IMPRESSION: No facial fracture. No definite abnormality seen in the area of the upper and lower mandibles. Discharge Plan Discharge Clinical Impression: Left facial pain, Pain due to dental caries, Toothache Patient Disposition: Home Condition: Stable Instructions: Antibiotic Form Additional Instructions: Please return to the ER with any worsening symptoms. Follow-up with your dentist as soon as possible. Take all medications as prescribed, including regularly scheduled medications. You may use viscous lidocaine for pain control. Patient Language: Marshallese Prescriptions: New lidocaine HCl [Lidocaine Viscous] 2 % solution 1 applic mucous membrane TID PRN (Reason: pain) Qty: 300 0RF prednisone 20 mg tablet 20 mg PO BID Qty: 4 0RF No Action albuterol sulfate 90 mcg/actuation HFA aerosol inhaler 1 puff inhalation Q4H PRN (Reason: shortness of breath or wheezing) Qty: 6.7 0RF Claritin-D 12 Hour 5-120 mg tablet extended release 12 hr 1 tablet PO Q12H multivitamin Tablet 1 tablet PO DAILY amitriptyline 10 mg tablet See Rx Instructions .ROUTE .COMPLEX Qty: 90 2RF Dose Instruction: TAKE 1 TABLET BY MOUTH EVERYDAY AT BEDTIME Rx Instructions: TAKE 1 TABLET BY MOUTH EVERYDAY AT BEDTIME oxymetazoline 1 % cream 1 applic topical DAILY Qty: 30 1RF sertraline 100 mg tablet See Rx Instructions .ROUTE .COMPLEX Qty: 180 1RF Dose Instruction: TAKE 2 TABLETS BY MOUTH AT BEDTIME Rx Instructions: TAKE 2 TABLETS BY MOUTH AT BEDTIME diazepam 5 mg tablet 5 mg PO Q4-6H PRN (Reason: muscle spasm) Qty: 20 3RF metronidazole 1 % gel 1 applic topical QHS Qty: 60 0RF halcinonide [Halog] 0.1 % solution 1 applic topical DAILY Qty: 120 0RF clobetasol 0.05 % solution 1 applic topical BID Qty: 50 2RF Follow-up/Referrals: Howard Robertson MD [Primary Care Provider] - Stand Alone Forms: Work/School Release IP Time of Disposition: 00:07
[2025-03-19 19:48] VITALS: BP 112/88
[2025-03-19] MEDS: KETOROLAC 15 MG/ML VIAL (*BKC) IV PUSH (19:49)
[2025-03-19] MEDS: SODIUM CHLORIDE 0.9% IV 1,000 ML 999 ML IV CONT (19:49)
[2025-03-19 19:57] LABS: Basophils Percent Auto 0.4 % (0.2-1.2); Eosinophils Absolute Auto 0.2 K/mm3 (0-0.3); Hematocrit 39.6 % (37.0-47.0); Hemoglobin 13.3 g/dL (12.0-15.0); Immature Granulocyte Absolute 0.01 K/mm3 (0.00-0.031); Immature Granulocyte Percent A 0.2 % (0-0.5); Lymphocytes Absolute Auto 1.21 K/mm3 (0.9-3.2); Mean Corpuscular HGB Conc 33.6 g/dl (32-36); Mean Corpuscular Hemoglobin 31.4 pg (26-34); Mean Corpuscular Volume 93.4 fl (80-100); Mean Platelet Volume 10.6 fl (7.4-10.4); Monocytes Absolute Auto 0.3 K/mm3 (0.1-0.6); Monocytes Percent Auto 5.1 % (2.6-8.5); Neutrophils Absolute Auto 3.6 K/mm3 (1.3-6.7); Neutrophils Percent Auto 67.3 % (45.5-73.1); Platelet Count Result 239 k/mm3 (150-375); Red Blood Count 4.24 M/mm3 (4.2-5.4); Red Cell Distribution Width 12.7 % (11.5-14.5); White Blood Count 5.3 K/mm3 (4.5-10.0)
[2025-03-19 20:06] LABS: Alanine Aminotransferase 17 U/L (6-35); Albumin Level 4.2 g/dL (3.5-5.1); Alkaline Phosphatase 49 U/L (38-126); Anion Gap 5 mmol/L (4-12); Aspartate Amino Transferase 25 U/L (14-36); Bilirubin,Total 0.9 mg/dL (0.2-1.3); Blood Urea Nitrogen 5 mg/dL (7-17); Calcium 8.5 mg/dL (8.4-10.2); Carbon Dioxide 27 mmol/L (22-30); Chloride 107 mmol/L (98-107); Estimated CRCL calculation 103 ml/min; Estimated Glomerular Filt Rate > 60; Glucose 88 mg/dL (65-110); Potassium 3.9 mmol/L (3.4-5.0); Sodium 139 mmol/L (137-145)
[2025-03-19] MEDS: predniSONE 20 MG TABLET 40 MG PO (23:04)
[2025-03-19] MEDS: LIDOCAINE 2% VISC SOLN 15 ML UDC PO (23:47)
[2025-03-20 00:21] VITALS: BP 137/76; PULSE 66; RESP 16; TEMP 36.7; O2SAT 98
== END 2025-03-20 00:23 | disposition home or self-care (01) ==
PROVIDERS: Emergency Provider Registered Nurse; PCP Family Medicine
DX: K08.89 Other specified disorders of teeth and supporting structures (principal); K02.9 Dental caries, unspecified; F17.210 Nicotine dependence, cigarettes, uncomplicated
CPT/HCPCS: 36415; 70487; 80053; 85025; 96361; 96374; 99284; J1885; J7030; J7512; Q9967

== ENCOUNTER 2025-04-05 01:14 | Day surgery (SDC) | payer OTHER, SELFPAY ==
[2025-03-30 11:52] VITALS: BMI 30.9
--- NOTE | 2025-03-30 11:54 | PC.NURSE ---
Report to the Outpatient Waiting Room, entrance under the green pavilion located off [facility], at time _0630_ on date _[id number]_. Planned Procedure Time: _0830_.? Time changes happen often and if your time is changed the preop area will call you the afternoon before. - You and your visitor will be asked to self-screen and do not enter if you have any COVID symptoms. Please call surgeon if you need to reschedule. - A mask is optional within the hospital at this time. Patients may have clear liquids (water, carbonated beverages, clear teas, apple juice) until 3 hours prior to surgery with a maximum of 20 ounces. - No food from midnight until time of surgery and no smoking, or chewing tobacco (or any form of nicotine). No chewing gum, candy or mints. Take only the following medications with a SIP of water on the morning of surgery: ___If still taking take Prednisone and antibiotic.____ DO NOT STOP ANY OF YOUR OTHER PRESCRIPTION MEDICATIONS PRIOR TO SURGERY EXCEPT THE FOLLOWING Hold all vitamins and supplements for 3 days per anesthesiologist. Medications to discontinue per physician Date to take last kpvr__[phone]___ Please no make-up, nail french, hairspray, perfume, deodorant, or body powder the day of surgery.? No jewelry (including any body piercings) or valuables the day of surgery, leave them at home.? Please take a shower or bath the night before, or the morning of, surgery with an antibacterial soap.? Wear comfortable, loose fitting clothing.? - Jewelry must be removed prior to entering the operating room.? Rings and piercings that are not removed may be cut off. - The hospital will not accept responsibility for valuables.? - Please leave all valuables, including medications, at home the day of surgery. If you are going home after surgery, a licensed cdl truck driver must drive you home.? - NO public transportation without another adult if you receive anesthesia. - We recommend that an adult stay with you for 24 hours following discharge. - We also recommend that you do not drive, make important decision, drink alcoholic beverages, or take any drugs that were not prescribed by your health care provider for at least 24 hours after your discharge time. Follow any additional instructions given to you from your surgeon. Telephone instructions given to __Tioa__and asked if any additional questions and then verbalized understanding. Patient advised to call surgeon office or pre surgery nurse liaison [phone] if any additional questions.
--- OUTSIDE RECORDS SUMMARY | 2025-04-05 01:17 | XMS_ITS | Data Portability ---
Author Organization [facility] [place] Address [address] [place] [address] [place] [address] Care Team Providers Care Production Support Consultant Name Role Phone JOHN AQUINO Primary Care Provider [phone] Assessment Encounter Date Assessment Date Assessment LastModified by Organization Details LastModified Time 03/08/2024 03/08/2024 Annual gynecological exam performed. Patient will come back in a year unless there are new symptoms. [email or web address] Not available 03/08/2024 12:53:04 Plan of Treatment Reminders Order Date Submit Date Provider Last Modified By Organization Details Last Modified Time Details Appointments SURG Salpingec sami 2024 09:00A Dari POLLACK MD Not available Not available Not available SURG POST OP 2024 10:00A Dari POLLACK MD Not available Not available Not available Lab test, urine 2024 025 maxi [place], [address], [address], [place], [address], 01/03/2025 13:40:23 urinalysi s, dipstick 2024 025 NANO [place], [address], [address], [place], [address], 01/03/2025 15:43:27 urinalysi s, dipstick 2023 024 [email or web address] [place] [facility] [address], [place], [address], 06/22/2024 10:35:33 urinalysi s, dipstick 2023 024 [email or web address] [place], [address], [place], [address], 03/08/2024 13:50:48 Referral None recorded. Procedures None recorded. Surgeries oophorect dhaval (SURG) [address], [facility] [facility], [place], [address], 02/27/2025 17:52:45 salpingec sami, laparosco pic (SURG) [address], [facility] [address], [place], [address], 03/23/2025 17:00:36 Imaging US, pelvis [address], [address], [place], [address], 2025 10:55:25 US, transvagi nal 2024 025 [facility] [place], [address], [place], [address], 2025 10:55:25 US, pelvis, complete 2024 025 [email or web address] [place], [address], [place], [address], 01/17/2025 15:37:30 Medication Orders None recorded. Patient [...] t Abnor mal: No Resul ting Lab: [facility] [address] [facility] [address] Tel: CULTU RE ----- ----- ----- --- No growt h in 1 day (dete ction level of 10,00 0 colon ies / ml.) Not Available [facility] (Lab) [address] [facility], [place], [address], 03/10/2024 07:12:45 03/08/20 24 03/08/2024 IMAGE GUIDE D PAP AND HPV REGAR DLESS image guided Pap, HPV regardless of Pap result SEE RESULT S BELOW CASE REPOR T: Cytol ogy Gynec ologi agueda Repor t Case: [id number] Autho melanie g Provi rylan: Marzena Bone, JEREMY Colle cted: [...] OSIS: Negat barry for Intra epith elial Anna song or Low antoine (NIL) . Shift in ahsan sugge stive of bacte rial vagin osis. Elect sedrick ricey joby d by Zenobia Vasquez ret, CT [...] agueda and/o r histo rical findi ngs, [facility] tigat ion is recom jennie d, as clini jd singh nted. Not Available [facility] (Lab) [address], [place], [address], 03/12/2024 13:02:17 03/08/20 24 03/08/2024 urina lysis , dipst ick Leukocytes + Not Available [facility] jeremy [address], [place], [address], 03/08/2024 13:01:01 03/08/20 24 03/08/2024 urina lysis , dipst ick Blood trace Not Available [place] [address], [place], [address], 03/08/2024 13:01:01 06/22/20 24 06/22/2024 VAGIN ITIS/ VAGIN OSIS, DNA PROBE sly sp. detection, direct probe Negati ve negati ve Not Available [facility] (Lab) [address], [place], [address], 06/24/2024 09:02:27 06/22/20 24 06/22/2024 VAGIN ITIS/ VAGIN OSIS, DNA PROBE gardnerella vag. detection, direct probe Positi ve negati ve abnormal Not Available [facility] (Lab) [address], [place], [address], 06/24/2024 09:02:27 06/22/20 24 06/22/2024 VAGIN ITIS/ VAGIN OSIS, DNA PROBE trichomonas vag. detection, direct probe Negati ve negati ve Not Available [facility] (Lab) [address], [place], [address], 06/24/2024 09:02:27 06/22/20 24 06/22/2024 CULTU RE: URINE result report SEE RESULT S BELOW Test: Cultu re: Urine Speci men Sourc e: Urine Voide d Speci men Type: Urine Speci men Date: 2023 0937 Resul t Date: 2023 0759 Resul t Statu s: Final resul t Abnor mal: No Resul ting Lab: [facility] [address] [facility] [address] Tel: CULTU RE ----- ----- ----- --- Organ ism(s ) consi stent with uroge nital or skin ahsan . Repea t cultu re if sympt oms indic ate. Not Available [facility] (Lab) [address], [place], [address], 06/24/2024 09:02:28 06/22/2006/22/2024 urina lysis , dipst ick Leukocytes ++ Not Available [facility] jeremy [address], [place], [address], 06/22/2024 10:34:38 06/22/20 24 06/22/2024 urina lysis , dipst ick Nitrite Positi ve Not Available [place] [address], [place], [address], 06/22/2024 10:34:38 06/22/20 24 06/22/2024 urina lysis , dipst ick Urobilinogen Normal Not Available [facility] dung [address], [place], [address], 06/22/2024 10:34:38 06/22/20 24 06/22/2024 urina lysis , dipst ick Protein Negati ve Not Available [place] [address], [place], [address], 06/22/2024 10:34:38 06/22/20 24 06/22/2024 urina lysis , dipst ick pH 5 Not Available [place] [address], [place], [address], 06/22/2024 10:34:38 06/22/20 24 06/22/2024 urina lysis , dipst ick Specific [place] 1.025 Not Available [facility] [address], [place], [address], 06/22/2024 10:34:38 06/22/20 24 06/22/2024 urina lysis , dipst ick Ketone Negati ve Not Available [place] [address], [place], [address], 06/22/2024 10:34:38 06/22/20 24 06/22/2024 urina lysis , dipst ick Bilirubin Negati ve Not Available [place] [address], [place], [address], 06/22/2024 10:34:38 06/22/20 24 06/22/2024 urina lysis , dipst ick Glucose Normal Not Available [place] [address], [place], [address], 06/22/2024 10:34:38 06/22/20 24 06/22/2024 urina lysis , dipst ick Color Dark yellow Not Available [place] [address], [place], [address], 06/22/2024 10:34:38 01/04/20 25 01/03/2025 [facility] bacterial vaginosis (bv), tma Positi ve negati ve abnormal Not Available [facility] (Lab) [address] [place], [address], 01/04/2025 15:19:15 01/04/20 25 01/03/2025 [facility] JODRI sly species, tma Negati ve negati ve Not Available [facility] (Lab) [address] [place], [address], 01/04/2025 15:19:15 01/04/20 25 01/03/2025 [facility]OMEN 'S [facility] SWAB PLUS, JORDI sly glabrata, tma Negati ve negati ve Not Available [facility] (Lab) [address] [place], [address], 01/04/2025 15:19:15 01/04/20 25 01/03/2025 [facility]OMEN 'S HE[facility] H SWAB PLUS, JORDI trichomonas vaginalis, tma Negati ve negati ve Not Available [facility] (Lab) [address] [facility], [place], [address], 01/04/2025 15:19:15 01/04/20 25 01/03/2025 [facility], JORDI chlamydia trachomatis, PCR Negati ve negati ve Not Available [facility] (Lab) [address] [place], [address], 01/04/2025 15:19:15 01/04/20 25 01/03/2025 [facility], JORDI neisseria gonorrhoeae, PCR [...] ded in this panel . Not Available [facility] (Lab) [address], [place], [address], 01/04/2025 15:19:15 01/04/20 25 01/03/2025 urina lysis , dipst ick Leukocytes - Not Available [facility] [address], [place], [address], 01/03/2025 15:04:16 01/04/20 25 01/03/2025 urina lysis , dipst ick Nitrite - Not Available [place] [address], [place], [address], 01/03/2025 15:04:16 01/04/20 25 01/03/2025 urina lysis , dipst ick Protein - Not Available [place] [address], [place], [address], 01/03/2025 15:04:16 01/04/20 25 01/03/2025 urina lysis , dipst ick pH 6 Not Available [place] [address], [place], [address], 01/03/2025 15:04:16 01/04/20 25 01/03/2025 urina lysis , dipst ick Specific [place] 1.015 Not Available [facility] [address], [place], [address], 01/03/2025 15:04:16 01/04/20 25 01/03/2025 urina lysis , dipst ick Appearance clear Not Available [facility] [address], [place], [address], 01/03/2025 15:04:16 01/04/20 25 01/03/2025 urina lysis , dipst ick Color dark yellow Not Available [place] [address], [place], [address], 01/03/2025 15:04:16 01/04/20 25 01/03/2025 pregn aidee test, urine HCG negati ve Not Available [place] [address], [place], [address], 01/03/2025 13:40:15 05/20/20 24 05/20/2024 imagi ng/di agnos tic resul t No observ ation record ed. [facility] [address], [place], [address], 06/28/2024 14:46:03 01/06/20 25 01/05/2025 US, pelvi s No observ ation record ed. [facility] [address], [place], [address], 01/05/2025 16:44:59 01/06/20 25 01/05/2025 US, trans vagin al No observ ation record ed. [facility] [address], [place], [address], 01/05/2025 16:45:10 01/06/20 25 01/05/2025 US, pelvi s No observ ation record ed. NANO Susan [address], [place], [address], 01/17/2025 20:19:37 Result Notes None recorded. Problems Name Problem SNOMED Code Status Onset Date Resolution Date Notes Provider Name and Address Organization Details Recorded Time Screenin g for malignan t neoplasm of cervix Completed 201504/15/2021 Screenin g for malignan t neoplasm s of the cervix;R ecorded Elsewher e: No [facility] S ource: EHR Cardiology Clinical Nurse Specialist arnaldo: N Practi ce ID: 0001 Atul lable Time: 01:30:00 PM Cindy Uriarte [facility] [place] - [facility] 15:40:09 Abdomina l pain [id number] Completed 201304/15/2021 Abdomina l pain, other specifie d site;Rec orded Elsewher e: No Locat ion: Lisseth kristan [facility] S ource: EHR Cardiology Clinical Nurse Specialist arnaldo: Y Practi ce ID: 0001 Atul lable Time: 03:15:00 PM Cindy easley [facility] 15:40:[address] Concept Completed 201704/15/2021 Encntr for obstetrics gynecology md exam (general ) (routine ) w/o abn findings ;Recorde d Elsewher e: No Locat ion: [facility] kristan [facility]: N Practi ce ID: 0001 Atul lable Time: 10:30:00 AM Cindy easley [facility] 15:40:31 Insertio n of intraute rine contrace ptive device Completed 201704/15/2021 Encounte r for insertio n of intraute rine contrace ptive device;R ecorded Elsewher e: No [facility]: N Practi ce ID: 0001 Atul lable Time: 01:00:00 PM Cindy easley [facility] 15:40:44 Urinary tract infectio us disease [id number] Completed 201112/20/2012 Urinary Tract Infectio n;Record ed Elsewher e: No Locat ion: [facility] S ource: EHR Cardiology Clinical Nurse Specialist arnaldo: N Practi ce ID: 0001 Atul lable Time: 01:45:00 PM Cindy easley [facility] 15:40:48 Atypical squamous cells of undeterm ined signific ance on cervical Papanico laou smear [id number] Completed 201112/20/2012 Papanico laou smear of cervix with atypical squamous cells of undeterm ined signific ance (ASC-US) ;Recorde d Elsewher e: No [facility]: E[facility] Cardiology Clinical Nurse Specialist arnaldo: N Jojoti ce ID: 0001 Atul lable Time: 11:15:00 AM Not Available [facility] 0 18:46:16 Speciali zed medical examinat ion Completed 201204/15/2021 Gynecolo gical Examinat ion;Vin rded Elsewher e: No Locat ion: [facility] kristan [facility] S ource: EHR Cardiology Clinical Nurse Specialist arnaldo: N Jojoti ce ID: 0001 Atul lable Time: 10:30:00 AM Cindy easley [facility] 1 15:40:40 Poor growth affectin g manageme nt [id number] Completed 201111/30/2013 Poor growth, affectin g manageme nt of mother, antepart um conditio n or complica tion;Rec orded Elsewher e: No Locat ion: [facility] S ource: EHR Cardiology Clinical Nurse Specialist arnaldo: N Practi ce ID: 0001 Atul lable Time: 08:30:00 AM Not Available [facility] 0 18:46:16 Infectio n screenin g Completed 201704/15/2021 Encounte r for screenin g for oth infec/pa rastc diseases ;Recorde d Elsewher e: No Locat ion: [facility] S ource: EHR Cardiology Clinical Nurse Specialist arnaldo: N Jojoti ce ID: 0001 Atul lable Time: 10:30:00 AM Cindy easley [facility] 1 15:40:17 Abnormal weight gain [id number] Completed 201504/15/2021 Abnormal weight gain;Rec orded Elsewher e: No Locat ion: [facility] S ource: EHR Cardiology Clinical Nurse Specialist arnaldo: N Practi ce ID: 0001 Atul lable Time: 01:30:00 PM Cindy easley [facility] 1 15:39:52 Uterine leiomyom a [id number] Completed 07/18/ 2012 04/15/2021 Leiomyom a of uterus, unspecif ied;Vin rded Elsewher e: No [facility]: EHR Cardiology Clinical Nurse Specialist arnaldo: N Jojoti ce ID: 0001 Atul lable Time: 08:15:00 AM Cindy easley [facility] 1 15:40:56 Postpart um care Completed 201012/20/2012 Routine postpart um follow-u p;Record ed Elsewher e: No Locat ion: [facility] S ource: EHR Cardiology Clinical Nurse Specialist arnaldo: N Jojoti ce ID: 0001 Atul lable Time: 01:30:00 PM Cindy easley, [facility] 1 15:39:45 Trichomo nal vulvovag initis [id number] Completed 201804/15/2021 Trichomo nal vulvovag initis;R ecorded Elsewher e: No Locat ion: [facility] S ource: EHR Cardiology Clinical Nurse Specialist arnaldo: N Jojoti ce ID: 0001 Atul lable Time: 11:30:00 AM Cindy easley [facility] 1 15:40:52 Pregnanc y test positive [id number] Completed 201111/30/2013 Pregnanc y examinat ion or test, positive result;R ecorded Elsewher e: No Locat ion: [facility] S ource: EHR Cardiology Clinical Nurse Specialist arnaldo: N Jojoti ce ID: 0001 Atul lable Time: 01:30:00 PM Cindy easley [facility] 1 15:40:20 Dysuria [id number] Completed 201404/15/2021 Dysuria; Recorded Elsewher e: No Locat ion: [facility] S ource: EHR Cardiology Clinical Nurse Specialist arnaldo: N oJjoti ce ID: 0001 Atul lable Time: 03:15:00 PM Cnidy easley [facility] 1 15:40:37 Syphilis test finding [id number] Completed 201704/15/2021 Encntr screen for infectio ns w sexl mode of transmis s;Record ed Elsewher e: No Locat ion: Shahbaz rushing [facility] S ource: EHR Cardiology Clinical Nurse Specialist arnaldo: N Jojoti ce ID: 0001 Atul lable Time: 10:30:00 AM Cindy easley [facility] 1 15:40:32 Body mass index 30+ - obesity [id number] Completed 201504/15/2021 Body mass index (BMI) 35.0-35. 9, adult;Re corded Elsewher e: No Locat ion: Shahbaz rushing [facility] S ource: EHR Cardiology Clinical Nurse Specialist arnaldo: N Jojoti ce ID: 0001 Atul lable Time: 01:30:00 PM Cindy easley [facility] 1 15:40:06 Routine antenata l care Completed 201111/30/2013 Supervis ion of other normal pregnanc y;Record ed Elsewher e: No Locat ion: Shahbaz rushing [facility] S ource: EHR Cardiology Clinical Nurse Specialist arnaldo: N Jojoti ce ID: 0001 Atul lable Time: 08:45:00 AM Cindy easley [facility] 1 15:39:47 Pregnanc y test negative [id number] Completed 201704/15/2021 Encounte r for pregnanc y test, result negative ;Recorde d Elsewher e: No Locat ion: Lisseth kristan [facility] S ource: EHR Cardiology Clinical Nurse Specialist arnaldo: N Practi ce ID: 0001 Atul lable Time: 01:00:00 PM Cindy easley [facility] 1 15:40:21 Adult health examinat ion Completed 201204/15/2021 Routine Medical Exam;Rec orded Elsewher e: No Locat ion: Shahbaz rushing [facility] S ource: EHR Cardiology Clinical Nurse Specialist arnaldo: N Jojoti ce ID: 0001 Atul lable Time: 01:00:00 PM Cindy easley [facility] 15:40:25 Removal of intraute rine device Completed 201704/15/2021 Encounte r for removal of intraute rine contrace ptive device;P ractice ID: 0001 Cindy easley [facility] 15:40:46 Contrace ptive sheath status [id number] Completed 201804/15/2021 Encounte r for routine checking of intraute rine contrace p dev;Prac roberto ID: 0001 Cindy Uriarte [facility] 15:40:18 Pregnanc y test positive [id number] Completed 201404/15/2021 Positive Pregnanc y Test;Pra ctice ID: 0001 Cindy Uriarte [facility] 15:40:20 Female genital organ symptoms [id number] Completed 201404/15/2021 Pelvic Pain;Pra ctice ID: 0001 Cindy Uriarte [facility] 15:40:11 Family planning surveill ance Completed 201304/15/2021 Contrace ptive surveill ance, unspecif ied;Prac roberto ID: 0001 Cindy Uriarte [facility] 15:40:[address] Concept Completed 201704/15/2021 Encntr for general adult medical exam w/o abnormal findings ;Recorde d Elsewher e: No Locat ion: Shahbaz rushing [facility] S ource: EHR Cardiology Clinical Nurse Specialist arnaldo: N Practi ce ID: 0001 Atul lable Time: 10:30:00 AM Cindy easley [facility] 15:40:29 Insertio n of intraute rine contrace ptive device Completed 201212/20/2012 INSERTIO N OF IUD;Vin rded Elsewher e: No Locat ion: [facility] S ource: EHR Cardiology Clinical Nurse Specialist arnaldo: N Jojoti ce ID: 0001 Atul lable Time: 08:30:00 AM Cindy easley, [facility] 1 15:40:44 Female genital organ symptoms [id number] Completed 201112/20/2012 Unspecif ied symptom associat ed with female genital organs;R ecorded Elsewher e: No Locat ion: [facility]: N Jojoti ce ID: 0001 Atul lable Time: 01:45:00 PM [facility] 15:40:11 Speciali zed medical examinat ion Completed 201112/20/2012 Gynecolo gical Examinat ion;Vin rded Elsewher e: No Locat ion: [facility]: N Jojoti ce ID: 0001 Atul lable Time: 01:00:00 PM Cindy easley, [facility] 1 15:40:40 Surveill ance of contrace ption Completed 201804/15/2021 Encounte r for surveill ance of contrace ptives, unspecif ied;Vin rded Elsewher e: No Locat ion: [facility]: N Jojoti ce ID: 0001 Atul lable Time: 11:30:00 AM Cindy easley, [facility] 1 15:40:51 Pregnanc y test negative [id number] Completed 201212/20/2012 Pregnanc y examinat ion or test, negative result;R ecorded Elsewher e: No Locat ion: [facility] S ource: EHR Cardiology Clinical Nurse Specialist arnaldo: N Jojoti ce ID: 0001 Atul lable Time: 08:30:00 AM Cindy Uriarte null, [facility] 15:40:21 Routine antenata l care Completed 201004/15/2021 Supervis ion of other normal pregnanc y;Practi ce ID: 0001 Cindy Uriarte null, [facility] 15:39:47 Delivery normal [id number] Completed 201004/15/2021 Normal delivery ;Practic e ID: 0001 Cindy Chapito null, [facility] 15:40:36 Single live from singleto n pregnanc y [id number] Completed 201004/15/2021 Mother with single liveborn ;Practic e ID: 0001 Cindy Chapito null, [facility] 15:40:07 Verruca vulgaris [id number] Completed 201104/15/2021 Warts Genital; Practice ID: 0001 Cindy Chapito null, [facility] 15:40:43 Amenorrh ea [id number] Completed 201104/15/2021 AMENORRH EA;Pract ice ID: 0001 Cindy Uriarte null, [facility] 15:39:49 Uterine size for dates discrepa ncy [id number] Completed 201104/15/2021 UTERINE SIZE CUAUHTEMOC-ANTE PAR;Prac roberto ID: 0001 Cindy Ney null, [facility] 15:40:35 Mild hypereme sis-not delivere d [id number] Completed 201104/15/2021 Mild hypereme sis gravidar um, antepart um;Pract ice ID: 0001 Cindy Chapito null, [facility] 15:40:12 Leukopen ia [id number] Completed 201104/15/2021 LEUKOCYT OPENIA NOS;Prac roberto ID: 0001 Cindy easley, [facility] 15:40:54 Urinary tract infectio us disease [id number] Completed 201104/15/2021 Urinary tract infectio n, site not specifie d;Practi ce ID: 0001 Cindy easley, [facility] 15:40:48 anatomy study Completed 201104/15/2021 [facility] SURVEY;P ractice ID: 0001 Cindy Uriarte [facility], [facility] 15:40:27 Primigra leonor [id number] Completed 201004/15/2021 Supervis ion of normal first pregnanc y;Practi ce ID: 0001 Cindy easley, [facility] 15:39:43 Excessiv e growth affectin g manageme nt of mother [id number] Completed 201111/30/2013 Excessiv e growth, affectin g manageme nt of mother, antepart um;Recor ded Elsewher e: No Locat ion: [facility] S ource: EHR Cardiology Clinical Nurse Specialist arnaldo: N Practi ce ID: 0001 Atul lable Time: 11:30:00 AM Cindy easley [facility] 15:40:15 Excessiv e growth affectin g manageme nt of mother [id number] Completed 201104/15/2021 GROWTH LARGE LGA;Prac roberto ID: 0001 Cindy easley, [facility] 15:40:15 Educatio n Completed 201204/15/2021 Counseli ng contrace ptive manageme nt;Pract ice ID: 0001 Cindy easley, [facility] 15:40:39 Postpart um care Completed 201104/15/2021 Routine postpart um follow-u p;Practi ce ID: 0001 Cindy Uriarte tracee [facility] 15:39:45 Problem Notes None recorded. Procedures Surgical History Date Name Laterality Status Provider Name and Address Organization Details Recorded Time 03/08/20 24 Date of Last Pap Smear completed Bev Lu [facility] 01/03/2025 12:39:49 10/14/20 21 Date of Last Mammogram completed Desire Seo [facility] 05/29/2022 17:05:27 10/26/19 14 Appendectomy completed [facility] 08/20/2020 15:19:08 10/26/19 13 cholecystectomy completed [facility] 08/20/2020 15:19:16 10/26/19 09 Laparoscopy completed [facility] 08/20/2020 15:19:41 10/26/19 08 Dilation and Curettage completed [facility] 08/20/2020 15:18:58 10/26/18 97 extraction of wisdom tooth completed [facility] 08/20/2020 15:18:49 Imaging Results None recorded. Procedure Notes None recorded. Medical Equipment None Reported. Allergies Allergen ID Allergen Name Allergen Category Reaction Reaction Severity Criticality Documentation Date Start Date Code Code System Note Provider Name and Address Organization Details Recorded Time Flagyl medicatio n Not available Not available Not available 05/20/20212020 6 RxNorm Patie nt repor ts only GI upset from [place], [facility]- [address], [place], [address], [facility] 2 17:39:38 2506 acetamino phen medicatio n Not available Not available Not available 08/20/2020 161 RxNorm Maria M Bain [facility], [facility] 0 15:19:58 2507 doxycycli ne Not available Not available Not available Not available 08/20/2020 3640 RxNorm Maria M Bain [facility] 0 15:20:16 2508 propoxyph avery medicatio n Not available Not available Not available 08/20/2020 8785 RxNorm Maria M Bain [facility], [facility] 0 15:20:29 Medications Name Sig Start [...] completed Not Available Not Available Not Available prednison e 20 mg tablet TAKE 1 TABLET BY MOUTH 2 TIMES A DAY active Not Available Not Available No t Available sertralin e 100 mg tablet TAKE 2 TABLETS BY MOUTH AT BEDTIME active Not Available Not Available No t Available Pyridium 100 mg tablet take 2 tablet (200MG) by oral route 3 times every day after meals 08/31 completed Prescrib ed Elsewher e: No Locat ion: [facility] odify By: maribel Doe nter DateTime : 01/08/20 12 10:16:57 AM Not Available Not Available Not Available Pyridium 200 mg tablet take 1 tablet (200MG) by oral route 3 times every day after meals 01/01 completed Prescrib ed Elsewher e: No [facility] odify By: chucky patel DateTime : [...] Elsewher e: No Locat ion: [facility] odify By: maribel Doe nter DateTime : 12/10/19 12 01:30:00 PM Not Available Not Available Not Available amoxicill in 875 mg tablet TAKE 1 TABLET BY MOUTH EVERY 12 HOURS active Not Available Not Available No t Available alprazola m 0.25 mg tablet TAKE [...] ed Elsewher e: Yes Loca tion: [facility] odify By: colette E ncounter DateTime : 01/02/20 16 01:30:00 PM [...] Prescrib ed Elsewher e: No Locat ion: [facility] odify By: laquita richunter DateTime : 11/15/19 14 10:09:46 AM Not Available Not Available Not Available prednison e 50 mg tablet TAKE 1 TABLET BY MOUTH EVERY DAY active Not Available Not Available No t Available promethaz ine 25 mg tablet take 1 tablet (25MG) by oral route every day at bedtime 08/31 completed Prescrib ed Elsewher e: No Locat ion: [facility] odify By: maribel Doe ntwil DateTime : 12/10/19 12 01:30:00 PM Not Available Not Available Not Available Wellbutri n 75 mg tablet take 1 tablet by oral route 3 times every day 12/10 completed Prescrib ed Elsewher e: Yes Loca tion: [facility] odify By: ar crowder DateTime : 06/03/20 11 08:17:58 AM Not Available Not Available Not Available Slow Fe 47.5 mg iron tablet,ex tended release 08/31 completed Prescrib ed Elsewher e: Yes Loca tion: [facility] odify By: mariebl Doe ntwil DateTime : 12/03/19 12 01:00:00 PM Not Available Not Available Not Available oxybutyni n chloride ER 5 mg tablet,ex tended release 24 hr TAKE 1 TABLET BY MOUTH EVERY DAY 05/29 completed Not Available Not Available Not Available lidocaine HCl 2 % mucosal solution APPLY TO AFFECTED MUCOSAL AREA THREE TIMES A DAY NEEDED FOR PAIN active Not Available Not Available No t Available clindamyc in 2 % vaginal cream INSERT 1 APPLICAT ORFUL VAGINALL Y EVERY DAY AT BEDTIME FOR 7 DAYS 02/04 completed Not Available Not Available Not Available Valtrex 500 mg tablet take 1 tablet (500MG) by oral route every day 08/31 completed Prescrib ed Elsewher e: No [facility] By: maribel Doe ntwil DateTime : 07/23/20 11 02:30:00 PM Not [...] mcg (50,000 unit) capsule take 1 capsule (38916EL ITS) by oral route every week 08/31 completed Prescrib ed Elsewher e: No Locat ion: [facility] odify By: maribel encinas DateTime : 05/20/20 12 03:54:52 PM Not Available Not Available Not Available clobetaso l 0.05 % scalp solution APPLY TOPICALL Y TWICE A DAY active Not Available Not Available No t Available ondansetr on 4 mg disintegr ating tablet TAKE 1 TABLET BY MOUTH EVERY 6 HOURS NEEDED FOR NAUSEA AND VOMITING 04/21 completed Not Available Not Available Not Available Xanax 1 mg tablet take 1 tablet (1MG) by oral route 3 times every day 04/15 completed Prescrib ed Elsewher e: Yes Loca tion: [facility] odify By: ar crowder DateTime : 11/30/19 14 04:00:00 PM Not Available Not Available Not Available diazepam 5 mg tablet TAKE 1 TABLET BY MOUTH EVERY 4 - 6 HOURS NEEDED FOR MUSCLE SPASM active Not Available Not Available No t Available amoxicill in 875 mg-potass ium clavulana te 125 mg tablet TAKE 1 TABLET BY MOUTH EVERY 12 HOURS UNTIL GONE active Not Available Not Available No t Available Flexeril 10 mg tablet take 1 tablet (10MG) by oral route 2 times every day 08/31 completed Prescrib ed Elsewher e: No [facility] By: maribel Doe nter DateTime : 06/24/20 12 11:30:00 AM Not [...] Prescrib ed Elsewher e: Yes Loca tion: [facility] odify By: colette Rushing ncojamie DateTime : 01/02/20 16 01:30:00 [...] Updated DateTime 01/03/2025 160.66 cm 34.1 kg/m2 62980.92 g 124 mm[Hg] 87 mm[Hg] Bev Leigh [facility] 5 12:38:04 Date Recorded Body height Body mass index (BMI) Body weight Systolic blood pressure Diastolic blood pressure Provider Name and Address Organization Details Last Updated DateTime 02/04/2025 160.66 cm 33.8 kg/m2 26163.45 g 142 mm[Hg] 84 mm[Hg] She Espinoza [facility] 5 12:40:43 Date Recorded Body height Body mass index (BMI) Body weight Systolic blood pressure Diastolic blood pressure Provider Name and Address Organization Details Last Updated DateTime 03/08/2024 160.66 cm 33.7 kg/m2 55898.74 g 117 mm[Hg] 82 mm[Hg] Lisa Cowart [facility] 4 12:55:17 Social History Question Answer Notes LastModified by Organizat ion Details LastModified Time Tobacco Smoking Status Current Some Day Smoker Pt smokes 5-6 cigarettes a weekend Maria M easley, [facility] 08/28/2020 12:55:47 Are You Blind Or [...] anxious, or unable to sleep at night)? [id number] Information not available 06/13/2022 Family History Relationship [...] 15:16:48 Mother Family history of breast cancer jgumber Not available 2019 15:17:02 Medical History Condition [...] SNOMED-CT Code Diagnosis ICD10 Code Diagnosis Note [id number] Ino Pollack MD [place] [address],[facility] [place] [address] 06/15/2020 11:56:52 07/01/2020 17:44:03 [id number] Elizabeth Almaguer [address] [address] 08/28/2020 12:00:33 08/28/2020 12:46:20 Pain in pelvis 91754973 R10.2 No pain on exam with the [...] STD and vaginitis panel collected. Enlarged uterus 43173066 4 N85.2 U/S scheduled. Urinary tr act infectious disease 49216581 N39.0 Increase water and decrease caffeine. Urine sent for culture. Will start macrobid d/t sp tenderness and urine dip. [id number] Ino Pollack MD [place] [address] [address] 09/06/2020 15:16:50 09/06/2020 16:07:11 Pain in pelvis 56481589 R10.2 [id number] Ino Pollack MD [place] [address] [address] 05/13/2021 15:57:38 05/13/2021 17:02:27 Pain in pelvis 78500435 R10.2 Abnormal u terine bleeding 1841624094 9100 N93.9 [id number] Ino Pollack MD [place] [address],[place] [address] 06/19/2021 12:36:42 06/19/2021 16:49:18 Pain in pelvis 08746817 R10.2 [id number] Ino Pollack MD [place] [address],[place] [address] 06/20/2021 10:54:23 06/20/2021 14:00:06 Insomnia 380962587 G47.00 Urgent cuauhtemoc cristian to urinate 80016695 R39.15 Pain in pelvis 89445532 R10.2 Cyst of ovary 75842138 N 83.209 this patient is a 41-year-ol [...] over 30 minutes discussing 3 complex topics. [id number] Ino Pollack MD [place] [address],[place] [address] 08/02/2021 10:26:13 08/02/2021 13:59:50 Pain in pelvis 26104308 R10.2 [id number] Elizabeth Almaguer CNM [place] [address],[place] [address] 09/30/2021 14:40:07 10/01/2021 19:08:30 Gynecologic examination 10535621 Z01.419 Z11.51 Suggested Calcium with Vitamin D 1200-1500m g daily. Patient advised to get an annual flu shot in the fall and she could obtain at [facility] or [facility] take care clinic. Also to obtain TDap vaccinatio [...] respond to this email. Pain of breast 50197964 N64.4 Diagnostic merlene and u/s ordered. If nl will rtc in 6 weeks. If abnormal imaging will schedule with specialist idalia If nl imaging but pain persists at 6 week f/u will need to see specialist . [id number] Irish Fu [facility] [address],[facility] [place] [address] 05/29/2022 16:51:24 05/30/2022 16:23:47 Vaginitis 02843302 N76.0 Suspect BVRx senttestin g sent Time spent in visit is a total of 15 mins with at least 50% of visit consisting of counseling and review of plan of care. Urinary symptoms 3056703 08 R39.9 [id number] Irish Fu [facility] [address],[facility] [place] [address] 06/13/2022 10:48:34 06/13/2022 11:36:43 Pain in pelvis 26288863 R10.2 N39.0 Today we agreed to updated [...] counseling and review of plan of care. [id number] Ino Pollack MD [place] [address],[place] [address] 06/16/2022 15:20:30 06/16/2022 17:08:02 Pain in pelvis 79008096 R10.2 [id number] Irish Fu [facility] [address],[place] [address] 06/24/2022 12:17:51 06/24/2022 13:36:42 Pain in pelvis 72496313 R10.2 N39.0 US results reviewed.R ecommalbert POLO consult for findings and symptoms that are [...] and review of plan of care. Vaginitis 16966083 N76.0 Suspect yeast from recent abx initiation .Rx sent [id number] Ino Pollack MD [place] [address],[place] [address] 07/31/2022 10:47:40 07/31/2022 11:23:22 Cyst of right ovary 9268404433 9536175 N83.291 [id number] Ino Pollack MD [place] [address],[place] [address] 08/09/2022 11:19:20 08/11/2022 15:31:00 Cloudy urine 1392805 R82.90 Pain in pelvis 57139526 R10.2 Cyst of right ovary 1223 260197 7588640 N83.291 this patient is a 42-year-ol d [...] decision to perform surgery. Female sterilization 608 57390 Z30.2 [id number] Irish Fu [facility] [address] [address] 12/31/2022 11:14:30 12/31/2022 12:37:41 Gynecologic examination 64061085 Z01.419 Suggested Calcium with Vitamin D 1200-1500m g daily. Patient advised to get an annual flu shot in the fall and she could obtain at [facility] or [facility] clinic. Also to obtain TDap vaccinatio n [...] an IUD for control. Screening mammography 24 747208 Z12.31 Pain in pelvis 50561055 R10.2 N39.0 Encouraged updated visit with Dr. Pollack to discuss surgery. [id number] Ino Pollack MD [place] [address] [address] 01/05/2023 11:00:32 01/05/2023 11:37:46 Cyst of right ovary 2594093311 9431672 N83.291 this patient is a 42-year-ol d [...] We made a decision to perform surgery. [id number] [facility] [address] [address] 04/21/2023 16:29:32 04/22/2023 10:07:15 Vaginitis 55246548 N76.0 Suspect BV/yeast.L ikely continues with sweating in tight work out wear in hot weather.Rx sentDeclin ed need std screenCons ider boric acid vaginal suppressiv e therapy if this becomes recurrent issue. Time spent in visit is a total of 20 mins with at least 50% of visit consisting of counseling and review of plan of care. [id number] ERIC Silverman [place] [address] [address] 06/02/2023 15:13:55 06/03/2023 17:15:49 Pain in pelvis 85004401 R10.2 This patient is a 43 -year-old [...] t of chronic pelvic pain Urinary symptoms 3488300 08 R39.9 [id number] Ino Pollack MD [place] [address] [address] 06/03/2023 15:25:41 06/03/2023 16:58:11 Pain in pelvis 03925872 R10.2 [id number] Ino Pollack MD [place] [address] [address] 06/04/2023 11:30:12 06/04/2023 12:28:28 Chronic pelvic pain of female 189219947 R10.2 this patient is a 43-year-ol d [...] and right oophorecto my. Cyst of ovary 93867907 N 83.209 Dyspareunia 78651468 N94 .10 Gynecologi c examination 18169609 Z01.419 Z11.51 [id number] ERIC Silverman [place] [address] [address] 03/08/2024 12:51:03 03/08/2024 13:52:29 Urinary symptoms 446673458 R39.9 Gynecologi c examination 20910372 Z01.419 WWEBC - Mirena IUD, inserted 03/24/2018 - will [...] the fall and she could obtain at [facility] or [facility] care clinic. Also to obtain TDap vaccinatio [...] please call or respond to this email. [id number] ERIC Silverman [place] [address],[facility] [place] [address] 06/22/2024 10:04:58 06/22/2024 10:36:04 Urinary symptoms 581126500 R39.9 [id number] ERIC Silverman [place] [address],[facility] [place] [address] 01/03/2025 12:29:01 01/03/2025 15:26:32 Pain in pelvis 57596100 R10.2 This patient is a 43 -year-old [...] further evaluation /managemen t of pelvic pain [id number] Ino Pollack MD [place] [address] [address] 01/05/2025 10:50:33 01/05/2025 11:49:47 Pain in pelvis 02330447 R10.2 [id number] Ino Pollack MD [place] [address] [address] 02/04/2025 12:21:05 02/05/2025 08:38:15 Female sterilization 25801356 Z30.2 Pain in pelvis 44439463 R10.2 Cyst of right ovary 1223 233376 4879576 N83.291 this patient is 45-year-ol d female [...] Guarantor Name 03/08/2024 1 *SELF PAY* Lucia carmen Begum 06/22/2024 1 [place] [facility] Amber Begum [id number] Amber Begum 01/03/2025 1 [facility] (MEDICAID HMO) [id number] Amber Begum [id number] Amber Begum 01/05/2025 1 [facility] (MEDICAID HMO) [id number] 0003 Amber Begum [id number] Amber Begum 02/04/2025 1 [facility] (MEDICAID HMO) [id number] 0003 Amber Begum [id number] Amber Begum Notes Date Note Type Note [...] use; Encourage regular mammograms starting age 39Notes:44yo [id number] pap 12/2022 : nilm, HPV (-)mammogram scheduled [...] flank pains ERIC Silverman [address], [place], [address], [facility] 03/08/2024 14:31:22 01/03/2025 text/html 44yopresents for [...] flu-like symptoms ERIC Silverman [address], [place], [address], [facility] 01/03/2025 15:20:57 02/04/2025 text/html this patient [...] infection. Ino Pollack MD [address], [place], [address], [place] [facility] 02/04/2025 13:24:18 OBGyn Episode Ob Episode Information Episode Created Date Number of Fetuses Patient Bloodtype Patient rh Status Prepregnancy Weight lbs Domestic Partner Domestic Partner Phone Father Name Marketing Administrative Assistant Status 08/20/20 20 1 CLOSED Fetus Data [...] Domestic Partner Domestic Partner Phone Father Name Marketing Administrative Assistant Status 08/20/20 20 1 CLOSED Fetus Data [...] Domestic Partner Domestic Partner Phone Father Name Marketing Administrative Assistant Status 08/20/20 20 1 CLOSED Fetus Data [...] Domestic Partner Domestic Partner Phone Father Name Marketing Administrative Assistant Status 08/20/20 20 1 CLOSED Fetus Data [...] Domestic Partner Domestic Partner Phone Father Name Marketing Administrative Assistant Status 08/20/20 20 1 CLOSED Fetus Data [...] Date Comments 9 39 Jan Mcarthur + JAQUAN Discharge Information Feeding Method Contraceptive Method Maternal HG B and HCT Levels Ob Episode Information Episode Created Date Number of Fetuses Patient Bloodtype Patient rh Status Prepregnancy Weight lbs Domestic Partner Domestic Partner Phone Father Name Marketing Administrative Assistant Status 08/20/20 20 1 CLOSED Fetus Data [...] Domestic Partner Domestic Partner Phone Father Name Marketing Administrative Assistant Status 06/20/20 21 1 CLOSED Fetus Data First Name Last Name Admitted to NICU Weight (g) Sex Living Outcome Pediatric Complications Fetus ID Race Codes Race Delivery Type 3713.55 7704 M Full Term [id number] Vaginal Delivery Manuel Calculation Initial Manuel Date [...]
[2025-04-05 07:20] VITALS: BP 134/85; PULSE 64; RESP 16; TEMP 36.8; O2SAT 99
[2025-04-05] MEDS: ACETAMINOPHEN 500 MG TABLET 1000 MG PO (07:35)
[2025-04-05] MEDS: KETOROLAC 15 MG/ML VIAL (*BKC) IV PUSH (07:45)
--- NOTE | 2025-04-05 08:06 | P.PNAN_ITS ---
Anes - Initial Pre Proc Eval Procedure: Operation Date: 04/05/25 09:15 Proposed Procedures p Laparoscopic Bilateral Salpingectomy with Right Oophorectomy - Ino Pollack MD Date/Time: 04/05/25 08:06 Surgeon: Ino Pollack MD Pre Op Diagnosis: cyst of right ovary, desires sterilization Patient Data Age: 45 Gender: F Height: 1.63 m Weight: 84.2 kg Last Vital Signs Temp 36.8 C 04/05/25 07:20 Pulse 64 04/05/25 07:20 Resp 16 04/05/25 07:20 BP 134/85 04/05/25 07:20 Pulse Ox 99 04/05/25 07:20 O2 Del Method Room Air 04/05/25 07:20 Allergies Allergy/AdvReac Type Severity Reaction Status Date / Time propoxyphene Allergy Intermediate SOB & Verified 04/05/25 07:30 TIGHTNESS IN THROAT doxycycline Allergy Mild Other Verified 04/05/25 07:30 strawberry Allergy Unknown Unknown Verified 04/05/25 07:30 tetracycline Allergy Unknown Unknown Verified 04/05/25 07:30 codeine (From Allergy Shakiness Verified 04/05/25 07:30 Tylenol-Codeine #3) Home Medications ?Medication ?Instructions ?Recorded ?Confirmed ?Type multivitamin 1 tablet PO DAILY 09/01/22 04/05/25 History diazepam 5 mg tablet 5 mg PO Q4-6H PRN muscle spasm #20 11/21/24 03/30/25 Rx tabs sertraline 100 mg tablet See Rx Instructions .Route 11/21/24 04/05/25 Rx .COMPLEX #180 tabs clobetasol 0.05 % scalp solution 1 applic topical BID #50 mL 02/03/25 04/05/25 Rx amoxicillin 875 mg tablet 875 mg PO Q12H #20 tabs 03/29/25 04/05/25 Rx loratadine 10 mg tablet (Claritin) 10 mg PO DAILY 03/30/25 04/05/25 History Patient hx anesthesia problems: none Family hx anesthesia problems: none Results Review: All pre-operative results and documents have been reviewed as part of the pre- operative evaluation. [facility] Past Medical History Medical History History of panic attacks Surgical History Surgical History Hx of cholecystectomy History of appendectomy Family History Family History Father Family history of thyroid disease Hypertension Family history of elevated blood lipids Family history of heart disease in male family member before age 55 Family history of alcoholism Family history of cardiovascular disease Family history of arthritis Sibling Family history of thyroid disease Family history of ulcerative colitis Depression Family history of anemia Family history of colitis Mother Family history of gastrointestinal disorder Carcinoma of colon Family history of malignant neoplasm of breast in first degree relative Family history of mental disorder Family history of anemia Family history of arthritis Grandparent Family history of osteoporosis Family history of Alzheimer's disease Family history of hearing loss Other Cerebrovascular accident Family history of allergic disorder Family history of glaucoma Family history of malignant neoplasm of breast Social History Social History Smoking packs per day: 1 Smoking cigarettes per day: 20.0 Years smoked: 7 Smoking pack-years: 7.00 Smoking status: Former smoker Tobacco type: cigarettes Smoking end date: 03/30/25 Additional smoking assessment comments: CURRENT SOCIAL SMOKER Alcohol intake: current Alcohol use details: 2/MONTH Substance use: never Substance use type: does not use Lack of Transportation: No Lack of Food: Never True Current Housing: I Have Housing Concerned About Future Housing: No Difficulty Paying Gas/Electric Bills: No Difficulty Paying for Meds: No Currently Unemployed: No Education: Trade/Vocational Certificate Difficulty w/ Childcare or Family Care: No Living arrangements: with family Additional living arrangements comments: SONS Spiritual care concerns: No Anes - Eval Final PreProcedure Day of Procedure 04/05/25 08:06 Patient weight: obese Heart: regular rate and rhythm Lungs: clear to auscultation Airway: Mallampati scale class II Neurological: alert and oriented Last oral intake: >/= 8 hours ASA classification: III Emergent: no Anesthetic plan: proceed Anesthesia type and monitoring: general ETT and standard monitoring Results Review: All pre-operative results and documents have been reviewed as part of the pre- operative evaluation. Informed Consent: The patient's anesthetic plan and its attendant risks and benefits were discussed with the patient/family/POA. Questions were solicited and answers provided to the satisfaction of the patient/family/POA.
--- NOTE | 2025-04-05 09:07 | PM.IMHP ---
H&P: HPI History of Present Illness Date/Time: 04/05/25 09:07 Chief Complaint: Pelvic pain Narrative: this patient is 45-year-old female with longstanding pelvic pain and recurrent right ovarian cyst. She would like the ovary removed. We agreed to do this a year ago. She lost her insurance. We will proceed at this time. We will perform laparoscopic bilateral salpingectomy and right oophorectomy. She understands the procedure. She understands risks, benefits, and alternatives. She has completed the informed consent process and is ready to proceed. The patient understands the details of the procedure. The procedure has been explained in detail. She understands the risks. She understands that injuries may occur that result in hospitalization, more surgery, and severe illness. She understands risk of hemorrhage and infection. She denies any chest pain or shortness of breath. She denies any nausea, vomiting, fever, chills. Review of Systems Review of Systems: All systems reviewed & are unremarkable except as noted in HPI and below Constitutional: Constitutional: Denies chills, Denies fatigue, Denies fever(s) and Denies weakness Eyes: Eyes: Denies blurry vision, Denies change in vision, Denies loss of peripheral vision, Denies loss of vision, Denies other visual disturbances and Denies eye pain ENT: Denies vertigo, Denies dizziness, Denies hearing loss, Denies mouth pain, Denies nasal obstruction, Denies neck mass and Denies neck pain Cardiovascular: Cardiovascular: Denies chest pain, Denies diaphoresis, Denies syncope, Denies leg edema and Denies dyspnea Respiratory: Respiratory: Denies chest congestion, Denies cough, Denies hemoptysis, Denies dyspnea and Denies wheezing Gastrointestinal: Gastrointestinal: Denies abdominal pain, Denies constipation, Denies diarrhea, Denies nausea and Denies vomiting Genitourinary: Genitourinary: Denies hematuria, Denies change in libido, Denies nocturia, Denies genital lesions, Denies flank pain and Denies urinary urgency Musculoskeletal: Musculoskeletal: Denies abnormal gait, Denies back pain, Denies myalgias, Denies arthralgias, Denies joint swelling, Denies muscle weakness and Denies neck pain Integumentary/Breasts: Skin/Breast: Denies swelling, Denies breast pain, Denies breast mass, Denies dry skin, Denies nipple discharge, Denies unusual bruising and Denies jaundice Neurologic: Denies Neuro-related abnormal movements, Denies Abnormal speech present, Denies abnormal gait, Denies behavioral changes, Denies confusion, Denies vertigo, Denies dizziness, Denies syncope, Denies loss of vision, Denies memory loss, Denies convulsions and Denies weakness Psychiatric: Psychiatric: Denies abnormal sleep pattern, Denies behavioral changes, Denies change in libido, Denies confusion, Denies depression, Denies anhedonia and Denies memory loss Endocrine: Endocrine: Reports no additional endocrine complaints, Denies change in libido and Denies fatigue Hematologic/Lymphatic: Hematologic/Lymphatic: Reports no additional hematologic/lymphatic complaints Allergic/Immunologic: Allergic/Immunologic: Reports no additional allergic/immunologic complaints and Denies wheezing PMFSH Past Medical History Medical History History of panic attacks Surgical History Surgical History Hx of cholecystectomy History of appendectomy Family History Family History Father Family history of thyroid disease Hypertension Family history of elevated blood lipids Family history of heart disease in male family member before age 55 Family history of alcoholism Family history of cardiovascular disease Family history of arthritis Sibling Family history of thyroid disease Family history of ulcerative colitis Depression Family history of anemia Family history of colitis Mother Family history of gastrointestinal disorder Carcinoma of colon Family history of malignant neoplasm of breast in first degree relative Family history of mental disorder Family history of anemia Family history of arthritis Grandparent Family history of osteoporosis Family history of Alzheimer's disease Family history of hearing loss Other Cerebrovascular accident Family history of allergic disorder Family history of glaucoma Family history of malignant neoplasm of breast Social History Social History Smoking packs per day: 1 Smoking cigarettes per day: 20.0 Years smoked: 7 Smoking pack-years: 7.00 Smoking status: Former smoker Tobacco type: cigarettes Smoking end date: 03/30/25 Additional smoking assessment comments: CURRENT SOCIAL SMOKER Alcohol intake: current Alcohol use details: 2/MONTH Substance use: never Substance use type: does not use Lack of Transportation: No Lack of Food: Never True Current Housing: I Have Housing Concerned About Future Housing: No Difficulty Paying Gas/Electric Bills: No Difficulty Paying for Meds: No Currently Unemployed: No Education: Trade/Vocational Certificate Difficulty w/ Childcare or Family Care: No Living arrangements: with family Additional living arrangements comments: SONS Spiritual care concerns: No Meds Home Medications and Allergies Home Medications ?Medication ?Instructions ?Recorded ?Confirmed ?Type multivitamin 1 tablet PO DAILY 09/01/22 04/05/25 History diazepam 5 mg tablet 5 mg PO Q4-6H PRN muscle spasm #20 11/21/24 03/30/25 Rx tabs sertraline 100 mg tablet See Rx Instructions .Route 11/21/24 04/05/25 Rx .COMPLEX #180 tabs clobetasol 0.05 % scalp solution 1 applic topical BID #50 mL 02/03/25 04/05/25 Rx amoxicillin 875 mg tablet 875 mg PO Q12H #20 tabs 03/29/25 04/05/25 Rx loratadine 10 mg tablet (Claritin) 10 mg PO DAILY 03/30/25 04/05/25 History Allergies Allergy/AdvReac Type Severity Reaction Status Date / Time propoxyphene Allergy Intermediate SOB & Verified 04/05/25 07:30 TIGHTNESS IN THROAT doxycycline Allergy Mild Other Verified 04/05/25 07:30 strawberry Allergy Unknown Unknown Verified 04/05/25 07:30 tetracycline Allergy Unknown Unknown Verified 04/05/25 07:30 codeine (From Allergy Shakiness Verified 04/05/25 07:30 Tylenol-Codeine #3) Vital Signs Vital Signs - 24 hr 04/05/25 07:20 Temperature 98.2 F Pulse Rate 64 Respiratory Rate 16 Blood Pressure 134/85 Pulse Oximetry 99 Oxygen Delivery Room Air Exam Const: General: cooperative, healthy appearing, comfortable and no acute distress Orientation/consciousness: oriented to person, oriented to place and oriented to time HENMT: Head: normal to inspection Ears: external ears normal Face/Nose/Sinus: Normal external nose present and normal facial exam Face and sinus: normal facial exam Eyes: General: appearance normal, both eyes and all related structures Neck: Neck: normal visual inspection, trachea midline and supple Resp: Auscultation: clear to auscultation bilaterally, no crackles, no rales, no rhonchi and no wheezes Cardio: Rate: regular rate Rhythm: regular rhythm Heart sounds: no click, no murmurs and no rubs GI: GI Palp: No abdominal tenderness, No Soft to palpation, No Tenderness to palpation present (GI) and No Palpable mass present Auscultation: normal bowel sounds Skin: General skin exam: normal color and no rashes or lesions noted Neuro: General: oriented to person, oriented to place and oriented to time Extrem: General: normal to inspection, no joint enlargement, no clubbing, cyanosis or edema, no pedal edema and no calf tenderness Psych: Appearance: grossly normal Mental Status: mental status grossly normal Speech and movement: Normal speech and movement present Assessment and Plan Assessment and plan (1) Pelvic pain: Code(s): R10.2 - Pelvic and perineal pain Status: Acute Plan this patient is 45-year-old female with longstanding pelvic pain and recurrent right ovarian cyst. She would like the ovary removed. We agreed to do this a year ago. She lost her insurance. We will proceed at this time. We will perform laparoscopic bilateral salpingectomy and right oophorectomy. She understands the procedure. She understands risks, benefits, and alternatives. She has completed the informed consent process and is ready to proceed.
--- NOTE | 2025-04-05 09:09 | WPDHPUPDATE1 ---
History and Physical Update Update Date/Time: 04/05/25 09:09 History and Physical has been reviewed, including an updated exam of the patient. There are NO changes in the patient's condition. Risks, benefits, and alternatives have been discussed and questions answered. Patient agrees to proceed with procedure.
--- NOTE | 2025-04-05 10:14 | S_PTH ---
PATIENT: Amber Begum LOC: [facility] U#:[id number] AGE/SX: 45/F ROOM: RE04/05/[address]: Ino Pollack MD : 1980 BED: DIS: 04/05/2025 SPEC #: [id number] RECD: 04/05/25 11:42 STATUS: BRIANNE REQ #: [id number] REBECCA: 04/05/25 10:[address]: Ino Pollack DEPT: [facility] Surgical RECD BY: Jenna Silva ENTERED: 04/05/25 11:42 SP TYPE: Surgical OTHR DR: Howard Robertson MD Tissues: A - Ovary Procedures: Hematoxylin and Eosin Stain Gross and Microscopic Level 4
--- NOTE | 2025-04-05 10:22 | P.OP_ITS ---
Procedure Note - Detailed Date of Procedure 04/05/25 Pre-op Diagnosis cyst of right ovary, desires sterilization, pelvic pain Post-op Diagnosis Same (With low left ovarian cyst) Procedure Performed Laparoscopic bilateral salpingectomy, right oophorectomy, left ovarian cystectomy Surgeon Ino Pollack MD Anesthesia General Indications Unwanted fertility, pelvic pain Findings Cystic bilateral ovaries, normal-appearing uterus and tubes. Description of Procedure The patient was taken the operating room. She was prepped and draped in the dorsal lithotomy position after induction of general anesthesia. A 5 mm skin incision was made in the left upper quadrant of the abdominal skin. A 5 mm trocar was inserted the intra-abdominal cavity under direct visualization of the scope. Pneumoperitoneum was achieved. A 11 mm trocar was inserted in the left lower quadrant identical fashion. A 5 mm infraumbilical trocar was inserted in identical fashion as well. The bilateral fallopian tubes were removed. This was done by using a LigaSure cautery. The mesosalpinx adjacent to the tube was cauterized transected with LigaSure. This was initiated in the area the ovary and in a stepwise fashion moved medially to the area of the cornu of the uterus. Once there the fallopian tube was cauterized and transected. This was done in identical fashion on each side. The right ovary was amputated. The infundib ulopelvic ligament was cauterized and transected with LigaSure cautery. The paraovarian tissue was cauterized transected. The ovary was placed in endobag and taken out the left lower quadrant trocar site The fallopian tubes were taken out through the left lower quadrant trocar site. Left ovarian cyst was performed. The cysts were lysed and drained. The pneumoperitoneum was reduced. The trocars removed. The skin was closed with subcuticular 4 Monocryl and covered with Dermabond. She was taken to cover stable condition. Sponge lap and needle counts were correct x2. Estimated Blood Loss 5 Drains No Packing No Pathology Yes Complications No immediate complications Condition Stable Disposition PACU
[2025-04-05 10:31] VITALS: BP 144/70; PULSE 84; RESP 17; TEMP 37; O2SAT 98
[2025-04-05] MEDS: LACTATED RINGERS 1,000 ML 30 ML IV CONT ×2 (10:31)
[2025-04-05 10:45] VITALS: BP 124/77; PULSE 73; RESP 15; O2SAT 100
[2025-04-05 11:00] VITALS: BP 122/67; PULSE 74; RESP 14; O2SAT 95
[2025-04-05 11:07] VITALS: BP 135/79; PULSE 65; RESP 16
[2025-04-05 11:35] VITALS: BP 139/74; PULSE 66; RESP 16
[2025-04-05] MEDS: oxyCODONE HCL (*CRX) 5 MG TAB IR PO (11:37)
[2025-04-05] MEDS: ONDANSETRON INJ 4 MG/2 ML VIAL IV PUSH (11:54)
== END 2025-04-05 12:30 | disposition home or self-care (01) ==
PROVIDERS: PCP Family Medicine; Visit Provider Obstetrics & Gynecology
PROC: (CPT 49320; principal; 2025-04-05 09:15)
DX: R10.2 Pelvic and perineal pain (principal); Z30.2 Encounter for sterilization; N83.01 Follicular cyst of right ovary; Z87.891 Personal history of nicotine dependence; E66.9 Obesity, unspecified; Z68.31 Body mass index [BMI] 31.0-31.9, adult
CPT/HCPCS: 58661; 58662; 88305; A9270; J1100; J1720; J1885; J2003; J2250; J2405; J2704; J3010; J7030; J7120

== ENCOUNTER 2025-10-13 14:01 | Outpatient (CLI) | payer OTHER, SELFPAY ==
--- OUTSIDE RECORDS SUMMARY | 2025-10-13 14:04 | XMS_ITS | Clinical Summary ---
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
--- OUTSIDE RECORDS SUMMARY | 2025-10-13 14:04 | XMS_ITS | Clinical Summary ---
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 Role Phone Unavailable Primary Care Provider [...] HPV 2009 Mammogram Screening 2019 COVID-19 Vaccine (2024-2 6 season) 2025 Influenza Adult (#1) 2025 Hepatitis A Vaccines Aged Out No long er eligible based on patient's age to complete this topic Meningococcal B Vaccine Aged Out No l onger eligible based on patient's age to complete this topic Meningococcal Vaccine Aged Out No edgardo andrew eligible based on patient's age to complete this topic Pneumococcal Vaccine: Pediat rics (0 to 5 Years) and At-Risk Patients (6 to 49 Years) Aged Out No longer eligible b ased on patient's age to complete this topic RSV Immunizations Under 20 Months Aged Out No longer eligible based on patient's age to complete this topic
[2025-10-13 18:38] LABS: CRP 1.0 mg/dL (<1.0)
[2025-10-13 18:50] LABS: Free T3 5.71 pg/mL (2.71-6.16); Free T4 Free Thyroxine 0.93 ng/dL (0.78-2.19)
[2025-10-13 19:11] LABS: Thyroid Stimulating Hormone 1.950 uIU/mL (0.465-4.680)
[2025-10-17 07:08] LABS: ANA by IFA Rfx Titer/Pattern Negative (.)
== END 2025-10-13 14:02 | disposition home or self-care (01) ==
LOC: ANHGOSHLAB 14:02
PROVIDERS: PCP Family Medicine; Visit Provider Nurse Practitioner Family
DX: R06.09 Other forms of dyspnea (principal); K58.9 Irritable bowel syndrome, unspecified; D50.9 Iron deficiency anemia, unspecified; R53.83 Other fatigue; M25.50 Pain in unspecified joint
CPT/HCPCS: 36415; 84439; 84443; 84481; 85652; 86038; 86140